=== PATIENT | male | born 1950 | race Caucasian/White ===

== ENCOUNTER → 2019-01-06 | Outpatient (CLI) | payer MEDICARE, OTHER, SELFPAY ==
[2019-01-06 12:19] LABS: Absolute Lymphocyte Count 1.67 X10^3/uL (0.83-4.51); Absolute Neutrophil Count 2.5 X10^3/uL (2.0-7.7); Basophil# 0.04 X10^3/uL; Basophil% 0.8 % (0-1); Eosinophils% 3.9 % (0-5); Hematocrit 42.5 % (40-54); Lymphocyte # 1.67 X10^3/ul (4.0); Lymphocyte % 32.7 % (19-41); Mean Corp Hgb Conc 32.9 g/dL (32-36); Mean Corpuscular Hgb 32.4 pg (27.0-32.0); Mean Corpuscular Volume 98.4 fL (80-94); Mean Platelet Vol. 10.2 fl (6.2-12.0); Monocyte# 0.63 X10^3/uL; Monocyte% 12.4 % (0-10); NRBC Flagged by Analyzer 0 % (0-5); Neutrophil # 2.53 X10^3/uL (2.7-7.7); Neutrophil % 49.6 % (47-70); Platelet Count 282 K/mm3 (150-450); RBC Distribution Width CV 11.8 % (11.6-14.6); RBC Distribution Width SD 43.1 fl (35.1-43.9); Red Blood Count 4.32 M/mm3 (4.6-6.2); White Blood Count 5.1 K/mm3 (4.4-11.0)
[2019-01-06 12:26] LABS: AST(SGOT) 19 U/L (15-37); Alanine Aminotransfer ALT/SGPT 35 U/L (16-61); Albumin, Serum 3.9 g/dL (3.2-5.0); Alkaline Phosphatase 88 U/L (45-117); Anion Gap 9 (5-15); BUN 20 mg/dL (7-18); BUN/Creat Ratio 21.5 RATIO (10-20); Calcium,Total 8.8 mg/dL (8.5-10.1); Chloride 104 mmol/L (98-107); Creatinine, Serum 0.93 mg/dL (0.70-1.30); EST Glomerular Filtration Rate 86 mL/min (>60); Est Glom Filt Rate - Afr Amer 104 mL/min (>60); Glucose 87 mg/dL (74-106); Protein, Total 7.9 g/dL (6.4-8.2); Sodium Level 138 mmol/L (136-145); T4 Free Direct 1.03 ng/dL (0.76-1.46); Thyroid Stim Hormone (TSH) 1.63 uIU/mL (0.358-3.74)
== END | disposition home or self-care (01) ==
LOC: BFHLAB 10:19
PROVIDERS: Family Provider Family Medicine; PCP Family Medicine; Visit Provider Family Medicine
DX: I10 Essential (primary) hypertension (principal); E78.5 Hyperlipidemia, unspecified; F10.20 Alcohol dependence, uncomplicated
CPT/HCPCS: 36415; 80053; 84439; 84443; 85025

== ENCOUNTER → 2019-01-21 12:21 | Outpatient (CLI) | payer MEDICARE, OTHER, SELFPAY ==
[2019-01-21 11:50] VITALS: BMI 25.9
--- NOTE | 2019-01-21 12:25 | CT_ITS ---
STUDY: LOW DOSE CT LUNG CANCER SCREENING REASON FOR EXAM: Male, 68 years old. Patient has a smoking history of 2 packs per day for 45 years. The patient quit 7 years ago. RADIATION DOSAGE (If Supplied By Facility): CTDIvol = ( 4.02 ) mGy, DLP = ( 155.02 ) mGycm TECHNIQUE: No contrast was administered. Low dose technique was utilized (average mAS-38 and kVp 120). 1.25 mm axial source images with a slice interval of 1.25-mm were reconstructed in lung windows. 2.5 mm axial source images with a slice interval of 2.5-mm were reconstructed in lung windows. 5.0 mm axial source images with a slice interval of 5.0-mm were reconstructed in soft tissue windows. Nodule measured using lung windows on PACS and/or independent workstation with automated measurement of minimum and maximum diameter. Nodule measurement reported as average diameter rounded to the nearest whole number. Growth is defined as an increase ins size of greater than 1.5 mm. COMPARISON: None. NODULES: There is a 1.5 cm x 2.7 cm x 2.2 cm area of irregular stranding in the medial left lung apex. This most likely represents a focal area of scarring. There is a 1.2 cm x 0.7 cm pleural-based nodular density in the superior aspect of the right lower lobe posteriorly as seen on axial image number 1:15. Total lung nodules (excluding granulomas): Emphysema: Mild emphysematous changes. Aorta: Mild calcified atherosclerotic plaques of the aortic arch and descending thoracic aorta. Coronary arteries: Coronary artery calcification. Mediastinal nodes: Small mediastinal lymph nodes. Other chest and abdominal findings: Degenerative changes of the thoracic spine. CT/Low Dose CT Lung Screening IMPRESSION: Lung-RADS category 3 - Continue screening with LDCT in 6 months. IMPORTANT NOTES FOR USE: ACR Lung-RADS Version 1.0 Assessment Categories Release Date: June 30, 2013 Category: Coded 0-4 bases on nodule(s) with highest degree of suspicion. Negative screen is defined as categories 1 and 2; a positive screen is defined as categories 3 and 4. Category 3 and 4A nodules that are unchanged on interval CT should be coded as category 2, and individuals returned to screening in 12 months. Category 4X: Category 3 or 4 nodules with additional imaging findings that increase the suspicion of lung cancer, such as spiculation, GGN that doubles in size in 1 year, enlarged lymph notes, etc. Category Modifiers: S (significant finding unrelated to lung cancer) and C (prior history of treated lung cancer) may be added to the 0-4 Lung-RADS Electronically Signed: Issac Sinha, at 12:57 EST , Service support ,
== END ==
PROVIDERS: Family Provider Family Medicine; PCP Family Medicine; Referring Provider Nurse Practitioner Family; Visit Provider Nurse Practitioner Family
DX: Z87.891 Personal history of nicotine dependence (principal); Z12.2 Encounter for screening for malignant neoplasm of respiratory organs
CPT/HCPCS: G0297

== ENCOUNTER → 2019-02-05 06:48 | Outpatient (CLI) | payer MEDICARE, OTHER, SELFPAY ==
[2019-01-24 06:13] VITALS: BMI 25.4
--- NOTE | 2019-02-05 15:24 | PFTCOMP ---
COMPLETE PULMONARY FUNCTION TEST INTERPRETATION Brief HPI: Patient is a 68 year old male, currently under the care of myself, who presents to [facility] for complete pulmonary function tests secondary to diagnosis of bronchitis. Respiratory therapist reports good effort and reproducible results. Interpretation: Forced expiration spirometry shows no large airways obstructive ventilatory defect with an FEV1 of 91% predicted. There is no significant bronchodilator response by strict ATS criteria. Spirograms are of good quality and plateau slowly, indicating slowly emptying areas of the lungs. The respiratory flow volume loop shows decreased expiratory flow rates at high lung volumes consistent with small airways obstruction. Lung volumes by body plethysmography show a normal total lung capacity at 7.28 L, 99% predicted. All other lung volumes are within normal limits. Diffusion capacity by carbon monoxide is normal at 105% predicted. The airway resistance is slightly elevated. No previous pulmonary function tests were available for review. Impression: These pulmonary function tests are grossly within normal limits. There is some stigmata of possible small airways disease.
== END ==
PROVIDERS: Family Provider Family Medicine; PCP Family Medicine; Referring Provider Internal Medicine Critical Care Medicine; Visit Provider Internal Medicine Critical Care Medicine
DX: R91.1 Solitary pulmonary nodule (principal); J47.9 Bronchiectasis, uncomplicated
CPT/HCPCS: 94060; 94726; 94729

== ENCOUNTER → 2019-02-06 08:09 | Outpatient (CLI) | payer MEDICARE, OTHER, SELFPAY ==
[2019-01-24 06:13] VITALS: BMI 25.4
[2019-02-06] VITALS (10 sets, daily range): BP systolic 137–172; BP diastolic 62–80; PULSE 55–60; RESP 14–20; TEMP 37; O2SAT 94–100; BMI 26.4
--- NOTE | 2019-02-06 | CT_ITS ---
PROCEDURE: CT GUIDED CORE NEEDLE BIOPSY OF A small posterior right lower lobe nodule LUNG LESION INDICATION: Male, 68 years old. Right lower lobe nodule. PHYSICIAN: Dr. Bharath Huber CONSENT: Written informed consent was obtained having explained the risks, benefits and alternatives in detail with the patient who accepted the risks and agreed to proceed. Laboratory review and clinical assessment was performed. CONSCIOUS SEDATION PROTOCOL: The Drugs used were: 2 mg Versed, IV., and 50 mcg Fentanyl, IV. The sedation time was: 9 minutes. Conscious sedation was started at 10:01 AM and terminated at 10:10 AM The conscious sedation protocol was independently monitored. RADIATION DOSAGE (If Supplied By Facility): CTDIvol = ( 21.76 ) mGy, DLP = ( 851.72 ) mGycm Individualized dose optimization techniques were used for this CT. TECHNIQUE: The patient was placed in the prone position. A noncontrast CT was performed to localize the lesion in the plaster aspect of the right lower lobe deep to a rib . The skin surface was prepped and draped in a sterile fashion. 1% lidocaine was used for local anesthesia. Using CT guidance, a 20-gauge coaxial biopsy device was advanced. Due to the position of the small nodular density deep to the rib, access was not obtainable at this time. A post procedure CT demonstrated no adverse sequelae or pneumothorax. The patient tolerated the procedure well without adverse event. A negative biopsy does not exclude malignancy. Further imaging or clinical followup based on patient condition and degree of clinical suspicion for malignancy. Suggest rebiopsy, if biopsy results do not match with clinical scenario. CT/Biopsy/Inj or Needle Placement IMPRESSION: 1. Attempted CT directed core needle biopsy of the right lower lobe lesion using CT image guidance with image documentation as described. Follow-up with PET scan is recommended. 2. Conscious Sedation protocol utilized with independent monitoring. Electronically Signed: Issac Sinha, at 13:23 EST , Service support ,
--- NOTE | 2019-02-06 08:19 | RAD_ITS ---
STUDY: X-RAY CHEST REASON FOR EXAM: Male, 68 years old. 2 hour postright lung biopsy radiograph. TECHNIQUE: AP inspiration and expiration views. COMPARISON: Comparison is made with prior study done earlier today. FINDINGS: This is a 2 hour post right lung biopsy radiograph. There is no evidence of pneumothorax. RAD/Chest Insp/Exp 2 View IMPRESSION: No evidence of pneumothorax on the 2 hour post right lung biopsy radiograph. Electronically Signed: Issac Sinha, at 14:57 EST , Service support ,
--- NOTE | 2019-02-06 08:19 | RAD_ITS ---
STUDY: X-RAY CHEST REASON FOR EXAM: Male, 68 years old. Immediate post right lung biopsy radiograph. TECHNIQUE: AP inspiration and expiration views COMPARISON: None. FINDINGS: EKG electrodes are seen. There is no evidence of pneumothorax. RAD/Chest Insp/Exp 2 View IMPRESSION: No evidence of pneumothorax on the immediate post right lung biopsy radiographs. Electronically Signed: Issac Sinha, at 11:40 EST , Service support ,
[2019-02-06 08:37] LABS: Absolute Lymphocyte Count 1.36 X10^3/uL (0.83-4.51); Absolute Neutrophil Count 3.3 X10^3/uL (2.0-7.7); Basophil# 0.03 X10^3/uL; Basophil% 0.6 % (0-1); Eosinophils% 3.7 % (0-5); Hematocrit 41.6 % (40-54); Hemoglobin 13.9 g/dL (13.0-16.5); Lymphocyte # 1.36 X10^3/ul (4.0); Lymphocyte % 25.4 % (19-41); Mean Corp Hgb Conc 33.4 g/dL (32-36); Mean Corpuscular Hgb 32.5 pg (27.0-32.0); Mean Corpuscular Volume 97.2 fL (80-94); Mean Platelet Vol. 9.6 fl (6.2-12.0); Monocyte# 0.46 X10^3/uL; Monocyte% 8.6 % (0-10); NRBC Flagged by Analyzer 0 % (0-5); Neutrophil # 3.28 X10^3/uL (2.7-7.7); Neutrophil % 61.3 % (47-70); Platelet Count 268 K/mm3 (150-450); RBC Distribution Width CV 11.9 % (11.6-14.6); RBC Distribution Width SD 42.5 fl (35.1-43.9); Red Blood Count 4.28 M/mm3 (4.6-6.2); White Blood Count 5.4 K/mm3 (4.4-11.0)
[2019-02-06 08:42] LABS: Prothrombin Time (Protime)PT. 13.4 SECONDS (11.7-14.9)
[2019-02-06 08:43] LABS: Partial Thromboplast Time 27.1 Seconds (24.1-36.2)
[2019-02-06] MEDS: fentaNYL 100 MCG/2 ML Ampul IV (10:01)
[2019-02-06] MEDS: Midazolam 2 MG/2 ML Syringe IV (10:01)
== END ==
PROVIDERS: Family Provider Family Medicine; PCP Family Medicine; Referring Provider Internal Medicine Critical Care Medicine; Visit Provider Internal Medicine Critical Care Medicine
DX: R91.1 Solitary pulmonary nodule (principal); J47.9 Bronchiectasis, uncomplicated
CPT/HCPCS: 32405; 36415; 71046; 77012; 85025; 85610; 85730; 99156; J7040; A4216

== ENCOUNTER → 2019-02-18 07:55 | Outpatient (CLI) | payer MEDICARE, OTHER, SELFPAY ==
[2019-02-06 08:41] VITALS: BMI 26.4
[2019-02-18 12:31] LABS: Cholesterol 164 mg/dL (200); Glucose 87 mg/dL (74-106); High Density Lipoprotein 46 mg/dL; Triglycerides 94 mg/dL; Very Low Density Lipoprotein 19 mg/dL (5-40)
== END ==
PROVIDERS: Family Provider Family Medicine; PCP Family Medicine; Visit Provider Family Medicine
DX: E78.5 Hyperlipidemia, unspecified (principal)
CPT/HCPCS: 36415; 80061; 82947

== ENCOUNTER → 2019-04-28 07:58 | Outpatient (CLI) | payer MEDICARE, OTHER, SELFPAY ==
[2019-02-06 08:41] VITALS: BMI 26.4
--- NOTE | 2019-04-28 07:58 | CT_ITS ---
ACR Level 3 findings have been noted. An addendum which confirms receipt of the report will follow. STUDY: CT CHEST WITHOUT CONTRAST REASON FOR EXAM: Male, 69 years old. LUNG NODULE F/U, PREV SMOKER, SMOKED FOR 42 YRS X 2PPD RADIATION DOSAGE (If Supplied By Facility): CTDIvol = ( 13.56 ) mGy, DLP = ( 508.42 ) mGycm TECHNIQUE: Transaxial imaging was performed without the administration of intravenous contrast material. Coronal and sagittal reconstruction images were also reviewed. Individualized dose optimization techniques were used for this CT. COMPARISON: Previous CT scan of the chest obtained on October 21, 2018 FINDINGS: The pulmonary parenchyma was carefully evaluated and shows multiple nodular densities not previously identified. One small nodule in the right lung apex on axial cardiac 24 measuring 3 mm in size. This is smooth nodular density which was previously identified and is unchanged. In the left lung apex on axial comment 26 is a strand-like area of increased density which is increased in size. This could represent an area of atelectatic fibrosis, however, an underlying tumor cannot be completely excluded. A pleural-based nodular density which is somewhat irregular is noted in the superior segment of the right lower lobe on axial cuts 62 measuring 1.8 x 0.9 cm in maximal transverse and AP dimension. Previously it is not hyperdense and measured about 0.95 x 0.7 cm in size so it has approximately doubled in size since the previous CT scan from 01/21/2019. A new pulmonary nodular density measuring about 3 mm in size is seen within the lateral right lower lobe on axial cuts 70 which previously was not seen. A suspicious new nodular density is noted on axial image 77 which measures 6 x 6 mm in size in the right middle lobe. On the same cut, a 3 x 3 mm nodular density is seen of the lateral aspect of the right lower lobe. 2 additional new pleural-based nodular densities measuring about 2 to 3 mm in size appears are seen in the lateral aspect of the right lower lobe on images 82 and 84. Finally, a suspicious nodular density measuring 8 mm in size which is pleural-based is no relating the right lower lobe, which previously was not seen. All these nodular densities are noncalcified and may have significantly increased in size and number and are therefore suspicious for metastasis. New granulomatous disease is less likely diagnostic possibility. Calcifications are noted in the coronary arteries due to coronary calcific arteriosclerosis. The heart is otherwise normal. Normal mediastinum. Normal hilar regions. Normal unenhanced pulmonary arteries. Normal aorta arch and descending thoracic aorta. Normal osseous structures. There is no demonstrated abnormality of the visualized upper abdomen. CT/Chest without Contrast IMPRESSION: Multiple pulmonary nodular densities are noted predominantly in the right lung which have increased in size and number. Metastasis are the prime diagnostic consideration, however, granulomatous disease is a less likely diagnostic possibility. Electronically Signed: Jono Aragon, at 9:51 EST Tel , Service support ,
== END ==
PROVIDERS: PCP Family Medicine; Referring Provider Internal Medicine Critical Care Medicine; Visit Provider Internal Medicine Critical Care Medicine
DX: R91.1 Solitary pulmonary nodule (principal)
CPT/HCPCS: 71250

== ENCOUNTER → 2019-05-19 07:47 | Outpatient (CLI) | payer MEDICARE, OTHER, SELFPAY ==
[2019-05-13 06:07] VITALS: BMI 25.7
--- NOTE | 2019-05-19 07:50 | PET_ITS ---
EXAMINATION: FDG PET-CT INDICATIONS: A 69-year-old male with history of pulmonary nodularity. COMPARISON EXAMINATION: CT of the chest report dated 04/28/2019 INDEX LESION SIZE SUV INTERPRETATION Mid to distal esophagus, nodular 20.5-mm (frame 230) 9.2 Fulfills quantitative criteria for viable neoplasm, direct visualization recommended Mediastinum, bilateral thoracic perihilum 32.4 x 51.3-mm (largest) (frame 229) 11.9 (max) Fulfills quantitative criteria or viable neoplasm Right supraclavicular region (nR3) 19.4-mm (largest) (frame 266) 5.5 (max) Fulfills quantitative criteria for viable neoplasm Right lower posterior lung-right lower lobe 17.8-mm (frame 224) 3.0 Fulfills quantitative criteria for viable neoplasm Axial skeletal structures, left proximal femur 7.9 (max) Fulfills quantitative criteria for viable osseous neoplasm TECHNIQUE: Following the intravenous administration of 16.62 mCi of F-18 deoxyglucose via the left antecubital fossa, multiplanar image acquisitions of the neck, chest, abdomen and pelvis to level of mid thigh, obtained at one hour post radiopharmaceutical administration contemporaneously interpreted with the current CT of the neck, chest, abdomen and pelvis, to level of mid thigh, dated 05/19/[address] of the chest report dated 04/28/2019 reveals: BLOOD GLUCOSE LEVEL:?? 95 mg/dl?HEIGHT:?73 inches?WEIGHT: 195 lbs. FINDINGS: 1. There is an increase in glucose metabolism defined in the carinal level posterior mediastinum which appears contiguous to the juncture of the mid-distal esophagus rendering a calculated maximal standard uptake value of 9.7. The maximal axial diameter of the corresponding metabolic abnormality on review of CT of the chest dated 05/19/2019 is 20.5-mm (transverse). 2. increased FDG distribution is noted in the pre-carinal level middle mediastinum and right, and to a lesser extent left, thoracic perihilum. The calculated maximal standard uptake value is 11.9. The maximal axial diameter of the largest individual metabolic, morphologic abnormality on review of CT of the chest dated 05/19/2019 is 32.4-mm (transverse) x 51.3-mm (AP). 3. Enhanced tracer concentration is observed in the right supraclavicular region-right anterior neck in approximately nodular presentations rendering a calculated maximal standard uptake value of 5.5. The maximal axial diameter of the corresponding largest individual soft tissue density on review of CT of the chest dated 05/19/2019 is 19.4-mm (AP). 4. Facilitated FDG uptake is noted in the right mid-lower posterior hemithorax-right lower lobe rendering a calculated maximal standard uptake value of 3.0. The maximal axial diameter of the corresponding pleural-based density on review of CT of the chest dated 05/19/2019 is 17.8-mm (transverse). 5. Innumerable foci of increased fluorine labeled glucose uptake are noted in the axial skeletal structures, too many to individually articulate, to include midline sacrum, left anterior and posterior iliac wing, left posterior ilium, several bilateral ribs, several thoracic and lumbar vertebrae, bilateral scapula, distal sternum, left proximal femur. The calculated maximal standard uptake value is 7.9. 6. Normal physiologic distribution of the radiopharmaceutical is apparent in the hepatic (2.5) and splenic parenchyma, both renal units, bladder and visualized intestinal tract. The visualized portion of the cerebral cortex demonstrate symmetric and preserved glucose metabolism. Diffuse radiopharmaceutical concentration is noted in all four quadrants of the abdomen and pelvis. Pertinent CT findings are as follows: CHEST: There is atherosclerotic calcification defined in the thoracic aorta without evidence of dilatation-aneurysm formation. Coronary arterial calcification is observed. Bilateral axillary soft tissue densities with fatty hilus are non-glucose avid. Parenchymal densities noted in the bilateral hemithorax pulmonary parenchyma demonstrate no evidence of quantitatively significant increased FDG concentration. ABDOMEN AND PELVIS: There is atherosclerotic calcification defined in the abdominal aorta without evidence of dilatation-aneurysm formation. Abdominal-pelvic arterial calcification is visualized. Bilateral inguinal soft tissue densities with fatty hilus are ametabolic. Calcifications are noted in the left lower hemipelvis. Exophytic and cortical cyst formation is demonstrated in the right kidney. A small fat containing right inguinal hernia is noted. Subcentimeter bilateral inguinal soft tissue densities are ametabolic. SKELETAL: Degenerative changes are noted in the cervical, thoracic and lumbar spine. PET/PET/CT Tumor Base -Thigh Init IMPRESSION: 1. Increased glucose metabolism manifest at the juncture of the mid-distal esophagus may be further investigated with direct visualization secondary to the quantitative degree of uptake. 2. Mediastinal and bilateral thoracic perihilar enhanced FDG uptake fulfills quantitative criteria for viable neoplasm with single point technique. 3. The right supraclavicular hypermetabolic abnormalities fulfill quantitative criteria for viable residual metastasis. 4. The right lower lung-right lower lobe increase in tracer concentration fulfills quantitative criteria for metastatic disease. 5. Axial skeletal and left proximal femur hypermetabolic foci fulfill quantitative criteria for viable osseous metastatic involvement.. Electronic Signature Kevin Curran D.O. Electronically Signed: Kevin Curran DO at 23:26 EDT Tel , Service support ,
== END ==
PROVIDERS: PCP Family Medicine; Referring Provider Internal Medicine Critical Care Medicine; Visit Provider Internal Medicine Critical Care Medicine
DX: R91.1 Solitary pulmonary nodule (principal)
CPT/HCPCS: 78815; A9552

== ENCOUNTER 2019-05-26 06:48 | Day surgery (SDC) | payer MEDICARE, OTHER, SELFPAY ==
--- NOTE | 2019-05-23 01:56 | HP_ITS ---
Intake Vital Signs 05/23/19 Height 6 ft 1 in 05/23/19 Weight: 190 lb 05/23/19 BMI 25.0 05/23/19 BP 172/87 H 05/23/19 Blood Pressure Location Rt brachial 05/23/19 Position Sitting 05/23/19 Respiration 20 H 05/23/19 Pulse 78 05/23/19 Pulse Oximetry (%) 97 Intake Visit Reasons: Esophagogastroduodenoscopy Chief Complaint: esophageal mass Salvage Mechanic Required: No Is patient in pain?: No Allergies No Known Allergies Allergy (Verified 05/23/19 11:43) Medications multivitamin 1 tab PO DAILY 01/20/19 [History Confirmed 05/23/19] atorvastatin 10 mg tablet 10 mg PO QHS 01/21/19 [History Confirmed 05/23/19] PFSH Medical History Former smoker (Acute) Hyperlipidemia (Chronic) JOSE DAVID (obstructive sleep apnea) (Acute) Macrocytosis (Chronic) Inguinal hernia (Chronic) Chronic obstructive lung disease (Chronic) Hypertensive disorder (Chronic) Alcoholism (Chronic) Surgical History (Updated 05/23/19 @ 11:44 by Danna Terry) History of carpal tunnel surgery (Resolved) History of inguinal hernia repair (Resolved) History of appendectomy (Resolved) History of colonoscopy (Acute ~2013) Family History Father Hypertension Cancer unsure if prostate or colon CVA (cerebral vascular accident) Mother Heart disease pacemaker Social History (Updated 05/23/19 @ 13:[address] Gm Harris MD) Smoking Status: Former smoker quit date: 04/12/12 pack-years: 94 Tobacco: How many years used: 47 Electronic Cigarette Use: not used how long ago did patient quit smokin years second hand exposure: No quit status: quit date established HPI HPI HPI: MILI LEYVA, is a 69 M who presents to the office today for HPI HPI Surgical H&P: Yes HPI: MILI LEYVA, is a 69 M who presents to the office today for Esophageal mass on imaging. The patient was noted to have a lung mass and underwent a PET scan. The patient has a mass in the mid esophagus on PET scan which is lighting up on the CT. He is not having any dysphasia at this time. ROS General General: Yes fatigue; no weight change, appetite, colon cancer, breast cancer or weakness HEENT HEENT: No difficulty swallowing, eye injury, eye surgery, swollen glands or hoarseness Endo Endocrine: No thyroid disease, diabetes mellitus, thyroid cancer, Hair loss, heat intolerance or cold intolerance Musc Musculoskeletal: Yes back problems; no arthritis, rheumatoid arthritis, gout or joint pain Cardio Cardiovascular: No murmur, pacemaker, heart disease, atrial fibrillation, high blood pressure, heart attack, heart stent, palpitations, shortness of breat with exertion or chest pain Psych Psychiatric: Yes depression; no anxiety or hearing voices Resp Respiratory: No shortness of breath, Yes sleep apnea, No cough, No COPD, No asthma, Yes emphysema, No wheezing Gastro Gastrointestinal: No abdominal pain, No nausea or vomiting, No diarrhea, No constipation, No blood in stool, No acid reflux, No hemorrhoids, No ulcers, No gallbladder problem, No black,tarry stools Matthew Hematologic: No blood thinners, No blood disorders, No bleeding, No anemia, No blood clots Neuro Neurologic: No weakness Exam Const General: cooperative Orientation: alert, oriented x3 Resp Effort & Inspection: normal respiratory effort Auscultation: clear to auscultation bilaterally Cardio Rate: regular rate Rhythm: regular rhythm Heart Sounds: no murmurs GI Inspection: non-distended Palpation: soft, nontender Assessment & Plan Problems 1. Esophageal lesion K22.9 Plan The patient had a PET scan for lung lesion. It was noted that he has a lesion in the mid esophagus. I discussed this with him in detail. I was consulted for an EGD for biopsy for pathology. The patient does have a mass in the mid mediastinum but I am unsure if this is in the esophagus. I will perform EGD for biopsy. If there is no erosion of the mass into the esophagus I would recommend a mediastinotomy by a thoracic surgeon for biopsy of lymph node under the right clavicle. I explained endoscopy in detail to the patient. I explained the risks including but not limited to stroke or heart attack with anesthesia, perforation of the GI tract, bleeding, infection. I explained that any of these could necessitate further emergency surgery. The patient understands and all questions were answered sufficiently. The patient wishes to proceed with procedure. Gm Harris MD Pager: [facility] [address] [place] [address], [address] [place] [address] Office: Orders Orders: EGD Today K22.9 Coding Level of Care Code Off vis,new,level 3 Diagnoses Esophageal lesion K22.9 05/23/19 8542 <Electronically signed by Gm ugalde MD> Date _ Gm Harris MD I have re-examined the patient. There are no clinical changes since date of exam.
[2019-05-23 11:44] VITALS: BMI 25.7
--- NOTE | 2019-05-26 | IMM_PTH ---
PATIENT: MILI LEYVA LOC: EN U#:[id number] AGE/SX: 69/M ROOM: RE05/26/[address]: Dr. Gm Harris MD : 1950 BED: DIS: 05/26/2019 SPEC #: [id number] RECD: 05/27/19 12:14 STATUS: JAZMINE REClare #: [id number] TASHA: 05/26/19 00:[address]: Gm Harris DEPT: IMMUNOHISTOCHEMISTRY RECD BY: Michelle Garcia ENTERED: 05/27/19 12:14 SP TYPE: IMMUNO OTHR DR: Dr. Johnathon Francois MD Tissues: Gastric mucous membrane Procedures: P53 (initial) KI-67 (add) PHYSICIAN & [place] [id number] SPECIMEN INFORMATION: Tissue Source: GE junction biopsy Clinical Info: Esophageal lesion Specimen Number: [id number] CPT code: 07086, 71844 METHODOLOGY: Deparaffinized sections of prefer/formalin-fixed tissue or PAP/DQ stained slides are incubated with monoclonal/polyclonal antibodies/oligonucleotide probes. Localization is made via biotin free immunoperoxidase method. Appropriate controls are performed and reacted as expected. Results on target cell population are indicated in the following table: RESULTS: ANTIBODY / CLONE RESULT P53 (DO-7) positive, focal, strong intensity Ki-67 (30-9) positive, focal, strong intensity These tests were developed and their performance characteristics determined by [facility]. They may not have been cleared or approved by the U.S. Food and Drug Administration. The FDA has determined that such clearance or approval is not necessary. The above immunohistochemical/dualISH markers are ordered and reviewed by the Pathologist. INTERPRETATION: Gastroesophageal junction, biopsy: Consistent with low-grade dysplasia. AM:luis 05/28/19
[2019-05-26 07:03] VITALS: BP 129/62; PULSE 77; RESP 15; TEMP 36.3; O2SAT 100; BMI 25.1
[2019-05-26] MEDS: Lactated Ringers 1,000 ML 100 ML IV (07:11)
--- NOTE | 2019-05-26 08:00 | EGD_PTH ---
PATIENT: MILI LEYVA LOC: EN U#:[id number] AGE/SX: 69/M ROOM: RE05/26/[address]: Dr. Gm Harris MD : 1950 BED: DIS: 05/26/2019 SPEC #: [id number] RECD: 05/26/19 09:53 STATUS: JAZMINE DALTON #: [id number] TASHA: 05/26/19 08:[address]: Gm Harris DEPT: SURGICAL PATHOLOGY RECD BY: Shady Rowe ENTERED: 05/26/19 12:00 SP TYPE: EGD BIOPSY OT DR: Dr. 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 Chronic inflammation. See comment. AM:luis 05/27/19 COMMENT Alcian blue/PAS stain with matched control supports the above diagnosis. Immunohistochemistry ([id number]) supports the above diagnosis and reveals strong, focal p53 staining. MICROSCOPIC DESCRIPTION Slides are reviewed. GROSS DESCRIPTION Received in fixative is one container labeled with the patient's name and designated GE junction biopsy. The specimen consists of one irregular fragment of light ruiz soft tissue that measures 0.3 x 0.2 x 0.1 cm. The specimen is totally submitted in one cassette. / SJ:luis 05/26/19 TC:3 CPT: 54746, 53970
--- NOTE | 2019-05-26 08:09 | OP.CCLET_ITS ---
05/26/2019 Johnathon Francois Re : Upper GI endoscopy procedure for Shabbir Dickinson Dear Alessandro This procedure was performed on Sunday, May 26, 2019. My impressions and recommendations are as follows: Impressions : - Esophageal mucosal changes suspicious for Tariq's esophagus. Biopsied. - Normal stomach. - Normal examined duodenum. - Recommendations : - Discharge patient to home. - Resume previous diet. - Continue present medications. - Await pathology results. My findings are described in the full procedure note, which is enclosed. If I can be of further assistance, please feel free to contact me at Doctor phone number(s): , Work: . Sincerely, Gm Harris MD 05/26/2019 8:09:10 AM This report has been signed electronically.
--- NOTE | 2019-05-26 08:09 | OP.EGD_ITS ---
Patient Name: Shabbir Dickinson Procedure Date: 05/26/2019 7:23 AM Date of : 1950 Age: 69 Procedure: Upper GI endoscopy Indications: Abnormal PET scan of the GI tract Providers: Gm Harris MD Medicines: Monitored Anesthesia Care Patient Profile: This is a 69 year old male. Refer to note in patient chart for documentation of history and physical. Complications: No immediate complications. Estimated blood loss: Minimal. Procedure: Pre-Anesthesia Assessment: - Prior to the procedure, a History and Physical was performed, and patient medications and allergies were reviewed. The patient's tolerance of previous anesthesia was also reviewed. The risks and benefits of the procedure and the sedation options and risks were discussed with the patient. All questions were answered, and informed consent was obtained. Prior Anticoagulants: The patient has taken no previous anticoagulant or antiplatelet agents. After reviewing the risks and benefits, the patient was deemed in satisfactory condition to undergo the procedure. After obtaining informed consent, the endoscope was passed under direct vision. Throughout the procedure, the patient's blood pressure, pulse, and oxygen saturations were monitored continuously. The gastroscope was introduced through the mouth, and advanced to the second part of duodenum. The upper GI endoscopy was accomplished without difficulty. The patient tolerated the procedure well. Scope In: 8:02:21 AM Scope Out: 8:05:36 AM Total Procedure Duration Time 0 hours 3 minutes 15 seconds Findings: There were esophageal mucosal changes suspicious for Tariq's esophagus present at the gastroesophageal junction. Mucosa was biopsied with a cold forceps for histology in a targeted manner at the gastroesophageal junction. One specimen bottle was sent to pathology. The stomach was normal. The examined duodenum was normal. Impression: - Esophageal mucosal changes suspicious for Tariq's esophagus. Biopsied. - Normal stomach. - Normal examined duodenum. - Recommendation: - Discharge patient to home. - Resume previous diet. - Continue present medications. - Await pathology results. Procedure Code(s): --- Professional --- 94786, Esophagogastroduodenoscopy, flexible, transoral; with biopsy, single or multiple Diagnosis Code(s): --- Professional --- K22.8, Other specified diseases of esophagus R93.3, Abnormal findings on diagnostic imaging of other parts of digestive tract CPT copyright 2017 [employer]. All rights reserved. The codes documented in this report are preliminary and upon sprinkler fitter apprentice review may be revised to meet current compliance requirements. Gm Harris MD 05/26/2019 8:09:10 AM This report has been signed electronically. Number of Addenda: 0 Note Initiated On: 05/26/2019 7:23 AM
[2019-05-26 08:12] VITALS: BP 103/57; BP 129/62; PULSE 81; RESP 16; TEMP 36.8; O2SAT 96
[2019-05-26 08:15] VITALS: BP 129/62; BP 93/45; PULSE 78; RESP 16; O2SAT 93
[2019-05-26 08:20] VITALS: BP 104/58; BP 129/62; PULSE 75; RESP 17; O2SAT 94
[2019-05-26 08:27] VITALS: BP 111/56; BP 129/62; PULSE 62; RESP 16; TEMP 36.6; O2SAT 94
[2019-05-26 08:56] VITALS: BP 129/62
== END 2019-05-26 09:03 | disposition home or self-care (01) ==
LOC: EN 06:49 → AC 06:50
PROVIDERS: PCP Family Medicine; Referring Provider Family Medicine; Visit Provider Surgery
PROC: 0DJ08ZZ Inspection of Upper Intestinal Tract, Via Natural or Artificial Opening Endoscopic (ICD-10-PCS; CPT 43235; principal; 2019-05-26 07:55)
DX: K22.8 Other specified diseases of esophagus (principal); R93.3 Abnormal findings on diagnostic imaging of other parts of digestive tract; R94.8 Abnormal results of function studies of other organs and systems; Z87.891 Personal history of nicotine dependence; E78.5 Hyperlipidemia, unspecified; G47.33 Obstructive sleep apnea (adult) (pediatric); J44.9 Chronic obstructive pulmonary disease, unspecified; I10 Essential (primary) hypertension; F10.20 Alcohol dependence, uncomplicated; Z79.899 Other long term (current) drug therapy; R91.8 Other nonspecific abnormal finding of lung field
CPT/HCPCS: 43239; 88305; 88312; 88341; 88342; J7120; J2405

== ENCOUNTER 2019-07-17 09:29 | Emergency (ER) | payer MEDICARE, OTHER, SELFPAY ==
[2019-07-17 09:30] VITALS: BP 133/56; PULSE 92; RESP 18; TEMP 36.2; O2SAT 96; BMI 23.1
--- NOTE | 2019-07-17 09:43 | EKG12_ITS ---
Test Reason : SOB Blood Pressure : / mmHG Vent. Rate : 080 BPM Atrial Rate : 080 BPM P-R Int : 128 ms QRS Dur : 096 ms QT Int : 374 ms P-R-T Axes : 002 -13 080 degrees QTc Int : 431 ms Normal sinus rhythm Nonspecific ST abnormality Abnormal ECG Confirmed by IVAN CLAYTON ([id number]), editor & co founder CELE DANIELS ([id number] on 07/21/2019 1:21:15 PM Referred By: STEPHEN Confirmed By:IVAN CLAYTON
--- NOTE | 2019-07-17 09:43 | CT_ITS ---
STUDY: CTA CHEST REASON FOR EXAM: Male, 69 years old. SOB, LUNG CANCER-FIRST CHEMO THIS WEEK, CP, BACK PAIN RADIATION DOSAGE (If Supplied By Facility): CTDIvol = ( 11.89 ) mGy, DLP = ( 301.51 ) mGycm TECHNIQUE: The examination was performed with the intravenous administration of IV 100mL Isovue-370. Post-processing of the angiographic images was performed, with multiplanar reformation and 3D reconstruction. Individualized dose optimization techniques were used for this CT. COMPARISON: Comparison is made with prior study dated April 28, 2019. FINDINGS: Multiple intraluminal filling defects seen in branches of the right lower pulmonary artery in keeping with multiple pulmonary emboli. There is atherosclerotic calcification of the aortic arch with tortuosity. There is no demonstrated aortic dissection. There are calcifications of the coronary arteries. There is evidence of a mediastinal lymphadenopathy. There is evidence of a 4.3 cm x 3.1 cm right hilar mass. This wraps around the right mainstem pulmonary artery and interlobar pulmonary artery. Prominence of the left hilar lymph nodes as well. Normal visualized trachea and bronchi. There is evidence of a patchy airspace disease in the right middle lobe most likely representing postobstructive pneumonitis. Once again, there is evidence of a pulmonary nodules more prominent in the right lung. These are essentially unchanged. There is evidence of increased markings in the left lower lobe suggestive of a atelectasis. Normal chest wall structures. There are degenerative changes of thoracic spine. Normal visualized upper abdomen. CT/CTA Chest W/WO Contrast IMPRESSION: Multiple filling defects in branches of the right pulmonary artery in the right lower lobe. Enlargement of the right hilar adenopathy as well as mediastinal lymphadenopathy and prominence of the left hilar lymph nodes. Multiple pulmonary metastasis in the right lung. Electronically Signed: Issac Sinha, at 11:33 EDT , Service support ,
[2019-07-17] MEDS: Aspirin 81 MG TAB.CHEW 324 MG PO (09:59)
[2019-07-17] MEDS: Morphine 4 MG/ML Syringe IV (09:59)
--- NOTE | 2019-07-17 09:59 | ED.VISSUMM ---
- ER Visit Summary Date of Service: 07/17/19 Chief Complaint: Chest pain, shortness of breath and back pain History of Present Illness: The patient is a 69 M who presents with the above symptoms. He just started chemotherapy this week for stage IV non-small cell lung cancer. He has pain in the middle part of his chest that started last night. It is worse with breathing. It does not radiate. It makes him feel short of breath. He denies any fevers. No cough. He states that he has been taking ibuprofen and oxycodone without any relief at home. He has no history of DVT or PE. Denies any exposure to coronavirus. He states that he has stopped smoking since his cancer diagnosis. Physical Examination: Vital signs reviewed. HEENT exam unremarkable. Heart is regular rate and rhythm without murmurs. Lungs have diffuse rhonchorous breath sounds. His chest is tender in the midsternal area. abdomen is soft and nontender. Extremities reveal no edema. His peripheral pulses are equal. Skin exam normal. Neurologic exam normal. Test Results: White blood cell count 2.6, hemoglobin 10.6. Hematocrit 32.8. Chloride 108 BUN 22. INR 1.3. Troponin and BNP normal. CAT scan of the chest shows multiple PEs in the right lower lobe branches. He also has a right lower lobe pneumonitis which is likely postobstructive Emergency Department Course and Treatment: Patient was given aspirin and morphine for pain. Upon reevaluation he feels much better. His pulse ox is 94% on room air. He is able to ambulate on his own without hypoxia or shortness of breath. I discussed with Dr. Cervantes his oncologist. He recommended the patient be placed on Eliquis. I will place him on antibiotics as well. Dr. Cervantes is going to contact him for an appointment tomorrow. Treatment Plan: [] Disposition: Discharge Impression: Pulmonary embolism, pneumonitis This note was generated with [employer] dictation software. It may contain incorrect words, spelling, and punctuation that were not noted in review of the chart prior to signing ED Disposition - Plan for ED Patient: Disposition: Home or Assisted Living Instructions: Pulmonary Embolism Prescriptions: Apixaban [Eliquis] 5 mg PO BID #74 tab Transmission Status: Pending to [facility] Azithromycin [Zithromax Z-Cortez] 250 mg PO UD #1 box Transmission Status: Pending to [facility] [facility] Referrals: Johnathon Francois MD [Primary Care Provider] -
[2019-07-17 10:03] VITALS: O2SAT 95
[2019-07-17 10:10] LABS: Absolute Lymphocyte Count 0.32 X10^3/uL (0.83-4.51); Basophil# 0.01 X10^3/uL; Basophil% 0.4 % (0-1); Eosinophil# 0.09 X10^3/uL; Eosinophils% 3.5 % (0-5); Hematocrit 32.8 % (40-54); Hemoglobin 10.6 g/dL (13.0-16.5); Lymphocyte # 0.32 X10^3/ul (4.0); Lymphocyte % 12.3 % (19-41); Mean Corp Hgb Conc 32.3 g/dL (32-36); Mean Corpuscular Volume 95.9 fL (80-94); Mean Platelet Vol. 8.9 fl (6.2-12.0); Monocyte# 0.17 X10^3/uL; Monocyte% 6.5 % (0-10); NRBC Flagged by Analyzer 0 % (0-5); Neutrophil # 1.99 X10^3/uL (2.7-7.7); Neutrophil % 76.5 % (47-70); POSITIVE DIFFERENTIAL YES; POSITIVE MORPHOLOGY YES; Platelet Count 150 K/mm3 (150-450); RBC Distribution Width CV 14.2 % (11.6-14.6); RBC Distribution Width SD 48.5 fl (35.1-43.9); Red Blood Count 3.42 M/mm3 (4.6-6.2); White Blood Count 2.6 K/mm3 (4.4-11.0)
[2019-07-17 10:11] LABS: Differential Indicated SCAN CRITERIA MET
[2019-07-17 10:21] LABS: International Normalized Ratio 1.3; Prothrombin Time (Protime)PT. 15.4 SECONDS (11.7-14.9)
[2019-07-17 10:28] LABS: Anion Gap 8 (5-15); BUN 22 mg/dL (7-18); BUN/Creat Ratio 30.1 RATIO (10-20); Calcium,Total 9.6 mg/dL (8.5-10.1); Chloride 108 mmol/L (98-107); Creatinine, Serum 0.73 mg/dL (0.70-1.30); EST Glomerular Filtration Rate 113 mL/min (>60); Est Glom Filt Rate - Afr Amer 137 mL/min (>60); Estimated Creatinine Clearance 78.28 ml/min; Glucose 89 mg/dL (74-106); Potassium 4.5 mmol/L (3.5-5.1); Sodium Level 139 mmol/L (136-145)
[2019-07-17 10:53] LABS: BNP,B-Type NATRIURETIC PEPTIDE 40.8 pg/mL (0-100)
[2019-07-17 12:48] VITALS: BP 133/71; PULSE 83; RESP 17; RESP 18; O2SAT 98
[2019-07-18 10:04] LABS: Pathologist Review Reviewed
== END 2019-07-17 12:54 | disposition home or self-care (01) ==
PROVIDERS: Emergency Provider Emergency Medicine; PCP Family Medicine
DX: I26.99 Other pulmonary embolism without acute cor pulmonale (principal); J18.9 Pneumonia, unspecified organism; E78.00 Pure hypercholesterolemia, unspecified; Z87.891 Personal history of nicotine dependence
CPT/HCPCS: 71275; 80048; 83880; 84484; 85025; 85610; 93005; 96374; 99284; Q9967; A4216

== ENCOUNTER 2019-07-21 12:10 | Emergency (ER) | payer MEDICARE, OTHER, SELFPAY ==
[2019-07-21 12:11] VITALS: BP 113/71; PULSE 106; RESP 20; TEMP 36.4; O2SAT 98; BMI 21.7
--- NOTE | 2019-07-21 12:41 | ED.VIS.GEN ---
History of Present Illness Chief Complaint: Nosebleed Informant: Patient, PCP Onset: Days - 3-4 Context: Gradual Onset Timing: Intermittent Quality: oozing Location: mainly left side, I think Current Severity: Mild Maximum Severity: Moderate Worsened by: unk; just started Eliquis for PE Relieved by: holding pressure Associated Symptoms: Spitting out some blood and coughing some out after nosebleed Narrative: Denying any shortness of breath. Sent by his oncologist because of intermittent nosebleeding since he started Eliquis for pulmonary emboli. He has stage IV non-small cell lung cancer, and he just started treatment for that. He was seen at his oncologist office because of the cancer and noted the bleeding, he was bleeding in the office so he was sent to the ER for further management including CBC and CMP to check platelets and liver enzymes. It does not sound like the patient has pulmonary hemoptysis, it sounds more associated with the nosebleeding with the way he is describing it at this time. He has no new thoracic symptoms. He is having lots of bone pain however. - Past Medical History (1) Non-small cell lung cancer Status: Chronic (2) JOSE DAVID (obstructive sleep apnea) Status: Chronic (3) Alcoholism Status: Chronic (4) Bronchiectasis Status: Chronic Comment: RLL (5) Hyperlipidemia Status: Chronic (6) Hypertensive disorder Status: Chronic Past Medical History - Allergies and Home Meds Allergies/Adverse Reactions: Allergies No Known Allergies Allergy (Verified 07/21/19 12:13) Primary Care Physician: Johnathon Francois MD [Primary Care Provider] - Surgical History: herniorrhaphy Smoking Status: Former smoker Review of Systems General: Denies: Chills, Fever, Sweats Eyes: Denies: Visual changes - bilaterally, Diplopia ENT: Reports: - - Nosebleeding. Denies: Rhinorrhea, Sore throat Cardiovascular: Denies: Chest pain, Palpitations Respiratory: Reports: Cough, Sputum - Occasional, chronic, Dyspnea on exertion Gastrointestinal: Denies: Abdominal pain, Nausea, Vomiting, Diarrhea, Melena, Hematochezia Genitourinary: Denies: Dysuria, Hematuria, Frequency Musculoskeletal: Reports: Back pain, Extremity Pain. Denies: Neck pain Skin: Denies: Rash, Wounds Neurological: Denies: Headache, Weakness, Numbness Physical Exam Vital Signs/Narrative: Vital Signs Temp Pulse Resp BP Pulse Ox 07/21/19 12:11 97.6 F L 106 H 20 H 113/71 98 Inital Vital Signs reviewed: Yes General: Well nourished, Well developed, No Acute Distress Head: Normocephalic, Atraumatic Eyes: Perrl, EOMI ENT: Moist mucous membranes, No rhinorrhea, - - No active nasal bleeding, clots present bilaterally, 2 or 3 punctate sources on the right septum, and 1 small apparent source on the left, all with fresh blood present without active bleeding. No posterior or pharyngeal blood/bleeding. Neck: Supple, Nontender, No lymphadenopathy Cardiovascular: Regular rate, Regular rhythm, No murmurs Respiratory: No distress, CTA bilaterally, Chest nontender, Diminished - Throughout, symmetrically Abdomen: Soft, Nontender, Nondistended, Normal bowel sounds Skin: Normal color, No rash, No Trauma, - - Healing abrasion just to the right of the nose on the face Neurological: Alert, Oriented x3, Cranial nerves II-XII grossly intact, Normal Strength, Normal Sensation Psychological: Normal affect, Normal Mood Diagnostic/Tx/Re-eval Laboratory Tests 07/21/19 07/21/19 Range/Units 12:50 12:50 WBC 0.9 L* (4.4-11.0) K/mm3 RBC 3.29 L (4.6-6.2) M/mm3 Hgb 9.9 L (13.0-16.5) g/dL Hct 30.7 L (40-54) % MCV 93.3 (80-94) fL MCH 30.1 (27.0-32.0) pg MCHC 32.2 (32-36) g/dL RDW Std Deviation 45.3 H (35.1-43.9) fl RDW Coeff of Nevin 13.4 (11.6-14.6) % Plt Count 58 L (150-450) K/mm3 MPV 9.0 (6.2-12.0) fl Immature Gran % (Auto) 9.900 H (0.0-0.9) % Neut % (Auto) 59.3 (47-70) % Lymph % (Auto) 18.7 L (19-41) % [place] % (Auto) 8.8 (0-10) % Eos % (Auto) 2.2 (0-5) % Baso % (Auto) 1.1 H (0-1) % Absolute Neuts (auto) 0.5 L (2.0-7.7) X10^3/uL Absolute Lymphs (auto) 0.17 L (0.83-4.51) X10^3/uL Nucleated RBC % 0 (0-5) % Differential Comment SCANNED Diff Path Review May foll Platelet Estimate MKD DEC (ADEQ) Hypochromasia 1+ Sodium 138 (136-145) mmol/L Potassium 3.8 (3.5-5.1) mmol/L Chloride 104 (98-107) mmol/L Carbon Dioxide 25.0 (21.0-32.0) mmol/L Anion Gap 9 (5-15) BUN 34 H (7-18) mg/dL Creatinine 1.09 (0.70-1.30) mg/dL Estim Creat Clear Calc 67.71 ml/min Est GFR (MDRD) Af Amer 86 (>60) mL/min Est GFR (MDRD) Non-Af 71 (>60) mL/min BUN/Creatinine Ratio 31.2 H (10-20) RATIO Glucose 116 H (74-106) mg/dL Calcium 10.3 H (8.5-10.1) mg/dL Total Bilirubin 1.90 H (0.20-1.00) mg/dL AST 70 H (15-37) U/L ALT 111 H (16-61) U/L Alkaline Phosphatase 514 H (45-117) U/L Total Protein 6.7 (6.4-8.2) g/dL Albumin 1.8 L (3.2-5.0) g/dL Globulin 4.9 H (2.2-4.2) g/dL Albumin/Globulin Ratio 0.4 L (0.9-2.4) RATIO - Medical Decision Making Discussed the lab results with Dr. Pacheco who was on-call for Dr. Cervantes. He is okay with him going home and following up as an outpatient. He agrees platelet transfusion not indicated. Patient has had no fevers, so we do not need to provide antibiotics or admission to the hospital given his neutropenia. Patient was given ENT for as needed outpatient follow-up, and he was given a bottle of Afrin for recurrent bleeding and instructed on its use. There were several areas bilaterally that were cauterized, and with his prolonged observation in the emergency department, bleeding was stable. Procedures Procedure(s): Epistaxis care/cauterization --there were multiple punctate areas in both septums that responded well to Afrin/lidocaine pledgets placed followed by silver nitrate chemical cauterization. Good hemostasis was obtained. ED Disposition - Plan for ED Patient: Disposition: Home or Assisted Living Diagnosis: Pancytopenia, Non-small cell lung cancer, Acute anterior epistaxis Instructions: ED Epistaxis Adult Referrals: Jose Roberto Cervantes DO [STAFF PHYSICIAN] - (Call for appointment) Johnathon Francois MD [Primary Care Provider] - Gal Santos MD [STAFF PHYSICIAN] - As Needed
[2019-07-21 13:46] LABS: ALB/GLOB Ratio 0.4 RATIO (0.9-2.4); AST(SGOT) 70 U/L (15-37); Alanine Aminotransfer ALT/SGPT 111 U/L (16-61); Albumin, Serum 1.8 g/dL (3.2-5.0); Alkaline Phosphatase 514 U/L (45-117); Anion Gap 9 (5-15); BUN 34 mg/dL (7-18); BUN/Creat Ratio 31.2 RATIO (10-20); Calcium,Total 10.3 mg/dL (8.5-10.1); Chloride 104 mmol/L (98-107); Creatinine, Serum 1.09 mg/dL (0.70-1.30); EST Glomerular Filtration Rate 71 mL/min (>60); Est Glom Filt Rate - Afr Amer 86 mL/min (>60); Estimated Creatinine Clearance 67.71 ml/min; Globulin 4.9 g/dL (2.2-4.2); Glucose 116 mg/dL (74-106); Potassium 3.8 mmol/L (3.5-5.1); Protein, Total 6.7 g/dL (6.4-8.2); Sodium Level 138 mmol/L (136-145)
[2019-07-21 13:52] LABS: Absolute Lymphocyte Count 0.17 X10^3/uL (0.83-4.51); Absolute Neutrophil Count 0.5 X10^3/uL (2.0-7.7); Basophil# 0.01 X10^3/uL; Basophil% 1.1 % (0-1); Eosinophil# 0.02 X10^3/uL; Eosinophils% 2.2 % (0-5); Hematocrit 30.7 % (40-54); Hemoglobin 9.9 g/dL (13.0-16.5); Lymphocyte # 0.17 X10^3/ul (4.0); Lymphocyte % 18.7 % (19-41); Mean Corp Hgb Conc 32.2 g/dL (32-36); Mean Corpuscular Hgb 30.1 pg (27.0-32.0); Mean Corpuscular Volume 93.3 fL (80-94); Monocyte# 0.08 X10^3/uL; Monocyte% 8.8 % (0-10); NRBC Flagged by Analyzer 0 % (0-5); Neutrophil # 0.54 X10^3/uL (2.7-7.7); Neutrophil % 59.3 % (47-70); POSITIVE COUNT YES; POSITIVE DIFFERENTIAL YES; POSITIVE MORPHOLOGY YES; Platelet Count 58 K/mm3 (150-450); RBC Distribution Width CV 13.4 % (11.6-14.6); RBC Distribution Width SD 45.3 fl (35.1-43.9); Red Blood Count 3.29 M/mm3 (4.6-6.2)
[2019-07-21 13:53] LABS: Differential Indicated SCAN CRITERIA MET; White Blood Count 0.9 K/mm3 (4.4-11.0)
[2019-07-21 14:07] LABS: Differential Comment SCANNED; Hypochromasia 1+; Platelet Estimate MKD DEC (ADEQ)
[2019-07-21] MEDS: Lidocaine 2% Jelly 1 APPLIC Tube 2 APPLIC TOPICAL (14:20)
[2019-07-21] MEDS: Oxymetazoline 0.05% 1 SPRAY SPRAY.BTL 2 SPRAY NASAL (14:20)
[2019-07-21] MEDS: Silver Nitrate (BKC) 1 EACH TOPICAL (15:54)
[2019-07-21 16:11] VITALS: BP 123/87; PULSE 89; RESP 18; O2SAT 95
[2019-07-22 10:57] LABS: Pathologist Review Reviewed
== END 2019-07-21 18:01 | disposition home or self-care (01) ==
PROVIDERS: Emergency Provider Emergency Medicine; PCP Family Medicine
DX: D61.818 Other pancytopenia (principal); C34.90 Malignant neoplasm of unspecified part of unspecified bronchus or lung; R04.0 Epistaxis; E78.5 Hyperlipidemia, unspecified; Z87.891 Personal history of nicotine dependence
CPT/HCPCS: 36415; 80053; 85025; 99282

== ENCOUNTER 2019-07-22 17:25 | Inpatient (IN) | payer MEDICARE, OTHER, SELFPAY ==
[2019-07-21 12:11] VITALS: BMI 21.7
[2019-07-22] VITALS (16 sets, daily range): BP systolic 85–116; BP diastolic 50–62; PULSE 112–149; RESP 13–28; TEMP 36.5–37.9; O2SAT 89–100; BMI 23.8; BMI 20.9; BMI 21.0
--- NOTE | 2019-07-22 17:44 | EKG12_ITS ---
Test Reason : SOB Blood Pressure : / mmHG Vent. Rate : 150 BPM Atrial Rate : 150 BPM P-R Int : 124 ms QRS Dur : 088 ms QT Int : 270 ms P-R-T Axes : 029 -09 094 degrees QTc Int : 426 ms Sinus tachycardia Nonspecific ST and T wave abnormality Abnormal ECG Confirmed by SAMIR HUMPHREYS, NANI ([id number]), market editor CELE DANIELS ([id number]) on 07/29/2019 2:16:25 PM Referred By: SHU Confirmed By:NANI DAWSON MD
[2019-07-22 18:12] LABS: Absolute Lymphocyte Count 0.18 X10^3/uL (0.83-4.51); Absolute Neutrophil Count 0.2 X10^3/uL (2.0-7.7); Eosinophil# 0.01 X10^3/uL; Eosinophils% 1.9 % (0-5); Hemoglobin 8.1 g/dL (13.0-16.5); Lymphocyte # 0.18 X10^3/ul (4.0); Mean Corp Hgb Conc 31.2 g/dL (32-36); Mean Corpuscular Hgb 29.8 pg (27.0-32.0); Mean Corpuscular Volume 95.6 fL (80-94); Mean Platelet Vol. 9.6 fl (6.2-12.0); Monocyte# 0.09 X10^3/uL; NRBC Flagged by Analyzer 0 % (0-5); Neutrophil # 0.24 X10^3/uL (2.7-7.7); Neutrophil % 45.2 % (47-70); POSITIVE COUNT YES; POSITIVE DIFFERENTIAL YES; POSITIVE MORPHOLOGY YES; RBC Distribution Width CV 13.4 % (11.6-14.6); RBC Distribution Width SD 46.3 fl (35.1-43.9); Red Blood Count 2.72 M/mm3 (4.6-6.2)
[2019-07-22 18:18] LABS: Differential Indicated SCAN CRITERIA MET; Platelet Count 42 K/mm3 (150-450); White Blood Count 0.5 K/mm3 (4.4-11.0)
[2019-07-22 18:22] LABS: Prothrombin Time (Protime)PT. 37.1 SECONDS (11.7-14.9)
[2019-07-22] MEDS: 0.9% Normal Saline 1,000 ML 999 ML IV ×2 (18:22→19:39)
[2019-07-22 18:23] LABS: Partial Thromboplast Time 52.3 Seconds (24.1-36.2)
[2019-07-22 18:24] LABS: International Normalized Ratio 3.8
[2019-07-22 18:25] LABS: Base Excess 5 mmol/L (-2 to +2); Bicarbonate 26.4 mmol/L (22-26); PO2 134 mmHG (75-100); SO2 99 % (95-99); Total Carbon Dioxide 27 mmol/L; pCO2 27.4 mmHg (35-45); pH 7.59 (7.35-7.45)
[2019-07-22 18:28] LABS: ALB/GLOB Ratio 0.4 RATIO (0.9-2.4); AST(SGOT) 71 U/L (15-37); Alanine Aminotransfer ALT/SGPT 109 U/L (16-61); Albumin, Serum 1.7 g/dL (3.2-5.0); Alkaline Phosphatase 475 U/L (45-117); Anion Gap 11 (5-15); BUN 42 mg/dL (7-18); BUN/Creat Ratio 33.6 RATIO (10-20); Chloride 105 mmol/L (98-107); Creatinine, Serum 1.25 mg/dL (0.70-1.30); EST Glomerular Filtration Rate 61 mL/min (>60); Est Glom Filt Rate - Afr Amer 74 mL/min (>60); Estimated Creatinine Clearance 55.77 ml/min; Globulin 4.8 g/dL (2.2-4.2); Glucose 138 mg/dL (74-106); Potassium 3.9 mmol/L (3.5-5.1); Protein, Total 6.5 g/dL (6.4-8.2); Sodium Level 141 mmol/L (136-145)
--- NOTE | 2019-07-22 18:30 | RAD_ITS ---
STUDY: X-RAY CHEST REASON FOR EXAM: Male, 69 years old. shortness of breath TECHNIQUE: AP portable COMPARISON: February 06, 2019 FINDINGS: Bilateral perihilar interstitial thickening and patchy groundglass opacity in the right lower and left lower lobes possibly due to atypical viral pneumonia.. There is no demonstrated pleural abnormality. Normal size heart. Normal mediastinum and mirta. Normal visualized pulmonary arteries. Normal visualized aortic arch and descending thoracic aorta. Dorsal spine demonstrates degenerative change. Normal visualized ribs, clavicles, and shoulders. There is no demonstrated abnormality of the visualized soft tissue structures of the upper abdomen. RAD/Chest 1 View (Portable) IMPRESSION: Findings suspicious for viral pneumonia possibly due to covid 19 infection. Clinical correlation recommended Electronically Signed: Dexter Norman MD at 18:50 EDT , Service support ,
[2019-07-22 18:36] LABS: Lactic Acid 5.4 mmol/L (0.4-1.9)
[2019-07-22 18:38] LABS: Differential Comment SCANNED
[2019-07-22 18:39] LABS: Platelet Estimate MKD DEC (ADEQ)
--- NOTE | 2019-07-22 19:21 | HP.PCM_ITS ---
Problem List (1) Severe sepsis Status: Acute (2) Respiratory failure with hypoxia Status: Acute Qualifiers: Chronicity: acute Qualified Code(s): J96.01 - Acute respiratory failure with hypoxia (3) Pneumonia Status: Acute Qualifiers: Pneumonia type: due to unspecified organism Laterality: bilateral Lung location: unspecified part of lung Qualified Code(s): J18.9 - Pneumonia, unspecified organism (4) Suspected COVID-19 virus infection Status: Acute (5) Pancytopenia Status: Acute (6) Non-small cell lung cancer Status: Chronic Qualifiers: Laterality: unspecified laterality Qualified Code(s): C34.90 - Malignant neoplasm of unspecified part of unspecified bronchus or lung (7) Former smoker Status: Chronic (8) Hyperlipidemia Status: Chronic Qualifiers: Hyperlipidemia type: unspecified Qualified Code(s): E78.5 - Hyperlipidemia, unspecified (9) JOSE DAVID (obstructive sleep apnea) Status: Chronic (10) Chronic obstructive lung disease Status: Chronic Qualifiers: COPD type: unspecified COPD Qualified Code(s): J44.9 - Chronic obstructive pulmonary disease, unspecified (11) Hypertensive disorder Status: Chronic Qualifiers: Hypertension type: essential hypertension Qualified Code(s): I10 - Essential (primary) hypertension (12) Alcoholism Status: Chronic Comment: No intake since 03/2019. History of Present Illness Date of Admission: 07/22/19 Chief Complaint: Dyspnea The patient is a 69 y/o M w/ PMHx: Chronic COPD, Former Tobacco use, HTN, HLD, JOSE DAVID, EtOH Abuse, Lung CA on chemotherapy following w/ Dr. Cervantes who presents to the [facility] ED on 07/22/19 with history of diagnosis the week prior with pulmonary embolism to the right side started on Eliquis at that time with dyspnea associated also starting chemotherapy the week prior to current presentation, presenting to the ED on 07/21/2019 with unfortunate epistaxis with cauterization in the ED with return to home however he notes over the last several days progressively continued worsened dyspnea in addition to now onset over the last 24 hours reported cough of productive sputum occasionally blood-tinged, fever, arthralgia, myalgia, diarrhea, nausea, emesis, abdominal discomfort with bilateral lower quadrant cramping and occasional sharp stabbing pain, alteration to his sense of taste and smell as well as a bilateral frontal headache and congestion prompting ED return. Work-up in the ED included T 97.7, heart rate initially 149, BP 116/56, respiratory rate 28, 100% on 4 L with most recent repeat vitals heart rate 126, BP 111/61, respiratory rate 19, 100% on 4 L, CBC with WBC 0.5, hemoglobin 8.1, platelet 42 with neutropenia with ANC 0.2 and absolute lymphocytes 0.18 with increased immature granulocytes, coags with PT 37.1, INR 3.8, PTT 52.3, ABG with pH 7.59, bicarb 26.4, PCO2 27.4, PO2 134, CMP with BUN/creatinine 42/1.25, glucose 138, lactic acid 5.4, total bilirubin 2.50, AST/ALT 71/109, alk phos 475, troponin less than 0.015, blood culture x2 pending per ED, coronavirus PCR pending per ED, chest x-ray with findings suspicious for viral pneumonia possibly secondary to COVID-19 infection, EKG with sinus tachycardia with non-specific ST-T wave changes. In the ED patient ministered Zosyn, vancomycin and normal saline. Upon patient admission discussed case with the lehr stripper, Dr. Galdamez and updated patient's oncologist, Dr. Cervantes. Also notified infectious disease, Dr. Elizalde who will see the patient in AM. Past Medical History Past Medical History (Chronic Problems): Chronic Problems (Last Reviewed 05/23/19 @ 15:54 by Monica Arriaga NP-Brenda) Non-small cell lung cancer (Chronic) Bronchiectasis (Chronic) RLL Former smoker (Chronic) Hyperlipidemia (Chronic) JOSE DAVID (obstructive sleep apnea) (Chronic) Macrocytosis (Chronic) Inguinal hernia (Chronic) Chronic obstructive lung disease (Chronic) Hypertensive disorder (Chronic) Alcoholism (Chronic) No intake since 03/2019. History of tobacco abuse (Chronic) Continuous chronic alcoholism (Chronic) Medical History: Medical History (Last Reviewed 05/23/19 @ 15:54 by WOODY Webb) Former smoker (Acute) Z87.891 Hyperlipidemia (Chronic) E78.5 JOSE DAVID (obstructive sleep apnea) (Chronic) G47.33 Macrocytosis (Chronic) D75.89 Inguinal hernia (Chronic) K40.90 Chronic obstructive lung disease (Chronic) J44.9 Hypertensive disorder (Chronic) I10 Alcoholism (Chronic) F10.20 Allergies No Known Allergies Allergy (Verified 07/21/19 12:13) Home Medications: Ambulatory Orders Medication Instructions Recorded multivitamin 1 tab PO DAILY 01/20/19 atorvastatin 10 mg tablet 10 mg PO QHS 01/21/19 Azithromycin [Zithromax Z-Cortez] 250 mg PO UD #1 box 07/17/19 Oxycodone [Oxyir] 5 - 10 mg PO Q6H PRN PRN 07/17/19 Apixaban [Eliquis] 5 - 10 mg PO BID 07/22/19 Dexamethasone [Decadron] 4 mg PO BIDCM 07/22/19 Ondansetron HCl [Zofran] 8 mg PO Q8H PRN PRN 07/22/19 Surgical History: Surgical History (Last Reviewed 05/23/19 @ 15:54 by WOODY Webb) History of carpal tunnel surgery (Resolved) Z98.890 History of inguinal hernia repair (Resolved) Z98.890, Z87.19 History of appendectomy (Resolved) Z90.49 History of colonoscopy Onset Date: ~2013 Z98.890 Surgical History: herniorrhaphy, - - Vasectomy, appendectomy, left inguinal hernia repair, bilateral hand surgery, bilateral carpal tunnel surgery. Psychiatric History: No pertinent psych hx Lives: Spouse/ Significant Other Smoking Status: Former smoker - Patient quit cigarette tobacco usage in 2012 with prior to this 2 pack/day since he had been a teenager. Tobacco Use: Non-smoker Alcohol: Heavy - Patient had been drinking considerable amount of beer however he has not been drinking since March. Drugs: None - *Family History Maternal Family History: Family History (Last Reviewed 05/23/19 @ 15:54 by WOODY Webb) Father Hypertension Cancer CVA (cerebral vascular accident) Mother Heart disease History Items: Heart Disease - Maternal family history of heart disease, pacemaker status. Paternal Family History: Family History (Last Reviewed 05/23/19 @ 15:54 by WOODY Webb) Father Hypertension Cancer CVA (cerebral vascular accident) Mother Heart disease History Items: Cancer - Father with history of prostate cancer., High Cholesterol, Hypertension, Stroke Review of Systems Constitutional: Reports: Anorexia, Fever, Malaise, Weakness, Fatigue. Denies: Chills, Weight Change HEENT: Reports: Head Aches, Nasal Congestion, Sinus Congestion, Sore Throat. Denies: Sinus Drainage Cardiovascular: Denies: Chest Pain, Chest Pressure, Chest Tightness, Light Headedness, Palpitations, Syncope Respiratory: Reports: Cough, Hemoptysis, Shortness of breath at rest, Shortness of breath upon exertion, Sputum production Gastrointestinal: Reports: Abdominal Pain, Diarrhea, Nausea, Vomiting Genitourinary: Denies: Dysuria Musculoskeletal: Reports: Back Pain, Joint Pain, Muscle pain. Denies: Joint Tenderness Skin: Denies: Rash, Wounds Neurological: Denies: Numbness, Tingling, Focal weakness Psychiatric: Reports: Anxiety, Depression. Denies: Homicidal Ideations, Suicidal Ideations Hematologic/ Lymphatic: Reports: Anemia, Easy Bruising, Easy Bleeding VTE Information - Inpt Only VTE Present on Admission: No VTE Mechan Device Prophylaxis: SCD's VTE Pharm Prophylaxis ordered?: Yes Patient Problems: Active and Suspected Problems (Last Reviewed 05/23/19 @ 15:54 by Monica Arriaga NP-C) Severe sepsis (Acute) Respiratory failure with hypoxia (Acute) Pneumonia (Acute) Suspected COVID-19 virus infection (Acute) Pancytopenia (Acute) Subjective: Laying in the ED bed, fatigued and ill-appearing, increased respiratory rate and accessory muscle usage, evidence of respiratory distress. Objective: Physical Examination: General: awake, alert, oriented to self, place and recent events, remains cooperative, recent evidence of emesis, laying in the ED bed, fatigued and ill- appearing, increased work of breathing and accessory muscle usage, evidence of respiratory distress. Skin: normal color, turgor, no icterus, cyanosis. HEENT: AT/NC, EOMI, PERRLA, dry MM, no carotid bruits or JVD noted. Lungs: Diffusely diminished breath sounds, greater bases, increased respiratory rate, accessory muscle usage, evidence of distress, no obvious rales, ronchi or wheezing. Heart: Tachycardic with regular; no gallop, rub audible. Abdomen: soft, discomfort with palpation of the abdomen, greater bilateral lower quadrants, voluntary guarding, no obvious abdominal distention, hyperactive bowel sounds, difficult assessment of HSM secondary to abdominal discomfort with examination. Extremities: no cyanosis, clubbing, or edema. Neurological: patient awake, alert, oriented as noted; cognitive function near baseline but given fatigue and lethargy decreased; pupils equally reactive to light and accomodation; cranial nerves II-XII grossly normal, moving all 4 extremities, no focal deficits, strength severely global decrease secondary to acute presentation Psychiatric: affect appears fatigued, ill-appearing, no acute evidence of depressive or anxiety feelings. - Physical Exam Vitals/I&O's: Vital Signs Temp Pulse Resp BP Pulse Ox 97.9 F 126 H 19 H 111/61 100 07/22/19 18:44 07/22/19 19:00 07/22/19 19:00 07/22/19 19:00 07/22/19 19:00 Oxygen Flow Rate (L/min) 4 Oxygen Delivery Method Nasal Cannula Weight: 161 lb 12.8 oz Body Mass Index (BMI) 23.8 Laboratory Results 07/22/19 17:55: WBC 0.5 L*, RBC 2.72 L, Hgb 8.1 L, Hct 26.0 L, MCV 95.6 H, MCH 29.8, MCHC 31.2 L, RDW Std Deviation 46.3 H, RDW Coeff of Nevin 13.4, Plt Count 42 L*, MPV 9.6, Immature Gran % (Auto) 1.900 H, Neut % (Auto) 45.2 L, Lymph % (Auto) 34.0, [place] % (Auto) 17.0 H, Eos % (Auto) 1.9, Baso % (Auto) 0.0, Absolute Neuts (auto) 0.2 L, Absolute Lymphs (auto) 0.18 L, Nucleated RBC % 0, Differential Comment SCANNED, Diff Path Review July buzz, Platelet Estimate MKD 07/22/19 17:55: PT 37.1 H, INR 3.8 H*, APTT 52.3 H 07/22/19 17:55: Sodium 141, Potassium 3.9, Chloride 105, Carbon Dioxide 25.0, Anion Gap 11, BUN 42 H, Creatinine 1.25, Estim Creat Clear Calc 55.77, Est GFR (MDRD) Af Amer 74, Est GFR (MDRD) Non-Af 61, BUN/Creatinine Ratio 33.6 H, Glucose 138 H, Calcium 10.0, Total Bilirubin 2.50 H, AST 71 H, ALT 109 H, Alkaline Phosphatase 475 H, Troponin I < 0.015, Total Protein 6.5, Albumin 1.7 L , Globulin 4.8 H, Albumin/Globulin Ratio 0.4 L 07/22/19 17:55: Lactic Acid 5.4 H* 07/22/19 18:00: COVID-19 (YADY) Cancelled 07/22/19 18:14: pH 7.59 H, Bicarbonate Actual 26.4 H, POC Total CO2 27, Base Excess 5 H, O2 Saturation 99, ABG pCO2 27.4 L, ABG pO2 134 H Current Medications Sodium Chloride () 1,000 mls @ 999 mls/hr IV .Q1H1M ONE Stop: 07/22/19 19:55 Piperacillin Sod/Tazobactam (Sod 4.5 gm/ Sodium Chloride) 100 mls @ 200 mls/hr IV X1 ONE Stop: 07/22/19 19:25 Vancomycin HCl (Vancomycin) 1,000 mg in 200 mls @ 200 mls/hr IV X1 ONE Stop: 07/22/19 20:29 Assessment/Plan All Active Problems (Last Reviewed 05/23/19 @ 15:54 by Monica Arriaga, DYAN-C) Severe sepsis (Acute) Respiratory failure with hypoxia (Acute) Pneumonia (Acute) Suspected COVID-19 virus infection (Acute) Pancytopenia (Acute) Supraclavicular lymphadenopathy (Acute) Esophageal lesion (Acute) Multiple lung nodules on CT (Acute) Right lower lobe pulmonary nodule (Acute) History of carpal tunnel surgery (Resolved) History of inguinal hernia repair (Resolved) History of appendectomy (Resolved) The patient is a 69 y/o M w/ PMHx: Chronic COPD, Former Tobacco use, HTN, HLD, JOSE DAVID, EtOH Abuse, Lung CA on chemotherapy following w/ Dr. Cervantes who presents to the [facility] ED on 07/22/19 with history of diagnosis the week prior with pulmonary embolism to the right side started on Eliquis at that time with dyspnea associated also starting chemotherapy the week prior to current presentation, presenting to the ED on 07/21/2019 with unfortunate epistaxis with cauterization in the ED with return to home however he notes over the last several days progressively continued worsened dyspnea in addition to now onset over the last 24 hours reported cough of productive sputum occasionally blood-tinged, fever, arthralgia, myalgia, diarrhea, nausea, emesis, abdominal pain, alteration to his sense of taste and smell as well as a bilateral frontal headache and congestion prompting ED return. 1. Acute Severe Sepsis secondary to Acute Hypoxic Respiratory Failure secondary to Bilateral Pneumonia , Possible GN/GP although more likely secondary to Suspected Acute Viral Syndrome, COVID-19: Patient with leukopenia, lymphopenia, CXR with findings consistent with possible COVID-19 infection. Given severity of presentation will admit to the ICU with COVID precautions with initial COVID t est per ED negative; however, high suspicion with pending AM repeat COVID testing, planned ICU and ID consultations, maintain on oxygen with wean as tolerated to room air, consider BIPAP if needed, continue PRN albuterol, maintain on IV Zosyn and Vancomycin w/ pending MRSA screen, HOB, IS parameters w/ pending sputum cultures, respiratory viral panel and urine antigens, will obtain procalcitonin, CRP, CPK, Ferritin, LDH, D-dimer, continue supportive care including q 2 hour turning including prone given no prone bed availability and judicious hydration, closely monitor for worsening status for ARDS and multiorgan failure. C-diff and enteric pathogen requested. UA not marked, pending UCx, Bld cx x 2 obtained in the ED. 2. Elevated bilirubin, LFTs: Noted to have progressed over the last day, elevated on 07/21/2019 as well as current presentation, total bilirubin 2.50, AST/ALT 71/109, given history do suspect COVID and would be associated however to be cautious will obtain hepatitis panel and liver ultrasound. 3. Lung cancer, non-small cell: Unclear specific side, following with Dr. Cervantes, recent chemotherapy the week prior, will obtain magnesium and phosphorus levels and replete if appropriate, patient's oncologist has been updated on his current presentation and acutely ill status. Dr. Cervantes did state that patient has been declining and he has discussed transition to hospice with patient and family. 4. Chronic COPD: Will maintain on oxygen with wean as tolerated to room air, continue ATC duonebs, PRN albuterol, transition to inhalers if COVID repeat positive, HOB, IS parameters. 5. Pancytopenia, acute: Likely secondary to recent chemotherapy, acute infection and possibly oral anticoagulation, will continue to closely monitor with repeat CBC, transitioning from Eliquis to heparin drip with close continued monitoring and hold if necessary. 6. History of recent pulmonary embolism: Recent PE diagnosis approximately 1 week prior, had been on Eliquis with hold with recent 07/21/2019 epistaxis, ED evaluation with cauterization at that time, holding Eliquis with heparin transition, hold if recurrent epistaxis or bleeding including significant hemoptysis given presentation. Plex ultrasound ordered to bilateral lower extremities per discussion with lehr stripper. 7. History of alcohol abuse: Patient denies any significant alcohol intake since March but prior to this had drinking beer heavily he notes. 8. JOSE DAVID: As noted given acute presentation may consider BiPAP therapy. 9. Hypertension: Noted history, not on regimen, hypotensive in the ED, continue to closely monitor. 10. Former tobacco usage: Encouraged continued tobacco cessation. 11. Hyperlipidemia: Continue home statin regimen however closely monitor CMP as elevated AST and ALT. 12. DVT prophylaxis: SCDs, heparin drip as noted with hold on oral Eliquis, cautiously monitor given history of epistaxis and thrombocytopenia. 13. CODE status: Patient notes his is his HCPOA. Discussed CODE status at length including difference between FULL code, DNR-CCA and DNR-CC status. Following discussions about the differences in these status, requested DNR-CCA, no intubation status. He notes being amenable to BIPAP if necessary. Advanced Care Planning Face to Face Time: 16 minutes. Inpatient E&M: 16984 Init Hosp L3 Procedures: 81860 Advncd Care Plan 30 Min
--- NOTE | 2019-07-22 19:37 | ED.VISSUMM ---
- ER Visit Summary Date of Service: 07/22/19 Chief Complaint: Dyspnea History of Present Illness: The patient is a 69 M with shortness of breath. This started days ago and is gradually increasing. Symptoms are severe. He denies associated symptoms. He has a history of lung cancer, non-small cell and follows with Dr. Cervantes. According to the patient, he had chemotherapy early last week. He was also evaluated last week and found to have a PE. He was started on Eliquis. He had been doing okay, and then over the last few days, he is increasingly short of breath. He was also seen yesterday for nosebleed which was cauterized and has improved. He denies any other bleeding. Denies fever, cough, hemoptysis, chest pain. Physical Examination: Afebrile and vital signs unremarkable except for heart rate of 149 and respiratory rate of 28. Pulse ox is in the 90s on nasal cannula. Lungs are diminished. Heart tachycardic but regular. Abdomen soft. Extremities nontender. Skin pale. Test Results: EKG showed sinus rhythm at a rate of 150. Chest x-ray showed findings concerning for viral pneumonia. COVID testing is pending. CBC shows pancytopenia. Metabolic panel shows elevated liver enzymes. He is not having any abdominal pain or GI symptoms currently. Troponin was normal. Lactate was 5.4. pH 7.59, CO2 27, O2 134. Cultures pending. Emergency Department Course and Treatment: Patient was maintained on nasal cannula oxygen with COVID precautions. I spoke with him and he does not want any artificial life support. He is DNR Comfort Care arrest with no intubation. We started fluid resuscitation and continued oxygen and monitoring. Work-up as above. Heart rate has improved to the 1 teens. Blood pressure has been stable. He is afebrile. COVID testing is still pending and we will maintain precautions. Lactate was elevated at 5.4. He received additional fluids and will start broad-spectrum antibiotic coverage given that he is on chemotherapy. He received Zosyn and vancomycin. This may also be viral. Patient was discussed with the hospitalist and will be admitted to the ICU for further care. Treatment Plan: As above Disposition: Admission Impression: Septic shock, lung cancer, pancytopenia This note was generated with [employer] software. It may contain incorrect words, spelling, and punctuation that were not noted in review of the chart prior to signing ED Disposition - Plan for ED Patient: Referrals: Johnathon Francois MD [Primary Care Provider] -
[2019-07-22] MEDS: Vancomycin IV 1,000 MG/200 ML BAG 200 MG IV (19:52)
--- NOTE | 2019-07-22 19:55 | ED.RN ---
previous rn reports attempting a straight cath for urine and was unable to push past the prostate. pt again attempted to give a urine same and was unable to urinate
[2019-07-22] MEDS: Ondansetron 4 MG/2 ML Vial IV (20:06)
[2019-07-22] MEDS: 0.9% Normal Saline 1,000 ML 100 ML IV (21:31)
--- NOTE | 2019-07-22 21:56 | PCM.RX.CS ---
Consult Pharmacy has been consulted to manage selected antiobiotic: Vancomycin Type of Consult: New start Suspected Infection: Pneumonia Prior Doses of Antibiotics Received/Current Regimen: Medications Vancomycin HCl 750 mg/ Sodium (Chloride) 265 mls @ 250 mls/hr IV Q12H ALTON Discontinued Medications Vancomycin HCl (Vancomycin) 1,000 mg in 200 mls @ 200 mls/hr IV X1 ONE Stop: 07/22/19 20:29 Last Admin: 07/22/19 20:55 Dose: Infused Labs: Sodium 141 mmol/L (136-145) 07/22/19 17:55 Potassium 3.9 mmol/L (3.5-5.1) 07/22/19 17:55 Chloride 105 mmol/L (98-107) 07/22/19 17:55 Carbon Dioxide 25.0 mmol/L (21.0-32.0) 07/22/19 17:55 Anion Gap 11 (5-15) 07/22/19 17:55 BUN 42 mg/dL (7-18) H 07/22/19 17:55 Creatinine 1.25 mg/dL (0.70-1.30) 07/22/19 17:55 Est GFR (MDRD) Af Amer 74 mL/min (>60) 07/22/19 17:55 Est GFR (MDRD) Non-Af 61 mL/min (>60) 07/22/19 17:55 BUN/Creatinine Ratio 33.6 RATIO (10-20) H 07/22/19 17:55 Glucose 138 mg/dL (74-106) H 07/22/19 17:55 Microbiology: Microbiology 07/22/19 18:00 Mucosa - Nasopharyngeal Coronavirus COVID-19 PCR - Final Weight used for dosin.2 kg Estimated Creatinine Clearance: 55.8 Goal Trough: 15-20 mcg/mL Pharmacy Plan for Drug Dosing: Pharmacy Service will continue to monitor and adjust dosing as required. Follow-Up Labs: Trough Vancomycin Labs to be done on [date and time ordered]: 07/24/19 @[id number]
[2019-07-22] MEDS: 0.9% Saline Lock 10 ML Syringe IV (21:57)
[2019-07-22 22:05] LABS: Reflex Lactate? Y
[2019-07-22 22:18] LABS: Ferritin 11547 ng/mL (26-388); LDH 357 U/L (87-241); Phosphorus 3.6 mg/dL (2.5-4.9)
[2019-07-22 22:20] LABS: Partial Thromboplast Time 50.4 Seconds (24.1-36.2)
[2019-07-22 22:24] LABS: D-Dimer Quantitative (DVT/PE) 2.67 FEU/ug/m (0.27-0.49)
[2019-07-22] MEDS: Heparin Injection (Vial) 5,000 UNIT/ML VIAL 5000 UNIT IV (22:35)
[2019-07-22 22:37] LABS: Bacteria 0 SEEN /hpf (None Seen); Mucous, Urine 0 SEEN /hpf (<or=2+); Red Blood Cells-Urine 0 SEEN /hpf (0-5); Squamous Epithelial Cells - UA 0 SEEN /hpf (0-5)
[2019-07-22] MEDS: HEPARIN/D5w 25,000 UNITS 25,000 UNITS/250 ML IV.SOLN. 11 UNITS IV (22:37)
[2019-07-22] MEDS: Lidocaine Jelly 2% 20 ML Syringe (URO-JET) 20 APPLIC TOPICAL (22:40)
[2019-07-22 22:44] LABS: Color, Urine Amber (Yellow); Glucose, Dipstick Normal (Normal); Ketone-Dipstick 5 mg/dl (Negative); Leukocyte Esterase-Dipstick 25 /ul (Negative); Nitrite-Dipstick Negative (Negative); Occult Blood-Urine 10 /ul (Negative); Protein-Dipstick 30 mg/dl (Negative); Specific Gravity, Urine 1.015 (1.002-1.030); Urine Clarity Sl. Cloudy (Clear); Urine Urobilinogen 1 mg/dl (Normal)
[2019-07-22 22:49] LABS: Urine Bilirubin Dipstick 3 mg/dL (Negative)
[2019-07-22 22:51] LABS: White Blood Cells 0-5 SEEN /hpf (0-5)
[2019-07-22 22:52] LABS: Hyaline Cast 0-5 SEEN /lpf (0-5)
[2019-07-22 23:10] LABS: Lactic Acid 2.2 mmol/L (0.4-1.9)
[2019-07-22 23:23] LABS: M R Staph aureus DNA By PCR Negative (Negative); Probe Check PASS; Specimen Processing Control PASS
[2019-07-23] VITALS (45 sets, daily range): BP systolic 93–124; BP diastolic 38–82; PULSE 72–106; RESP 9–27; TEMP 36.7–38; O2SAT 95–100
--- NOTE | 2019-07-23 00:06 | US_ITS ---
STUDY: ABDOMINAL ULTRASOUND - RIGHT UPPER QUADRANT REASON FOR VISIT: Male, 69 years old abn labs TECHNIQUE: Ultrasound evaluation of the right upper quadrant was performed with real-time and static dickinson-scale imaging. TECHNICAL QUALITY: Adequate. COMPARISON: None. FINDINGS: Liver: The liver measures 18.3 cm. There is normal echogenicity of the liver. The bile ducts are within normal limits. There is hepatic color flow. The direction of portal flow is hepatopetal. 2 x 4 cm markedly hyperechoic mass within the right lobe of the liver likely consistent with hemangioma and correlation with liver mass protocol CT is recommended. Gallbladder: Normal distended gallbladder. The gallbladder wall measures 2 mm. There is a positive sonographic Ramsey''s sign. There is no pericholecystic fluid. There is biliary sludge dependent within the gallbladder. Common Bile Duct (C.B.D.): The common bile duct measures 13 mm. Pancreas: There is nonvisualization of the pancreas.. Right Kidney: Normal size of the right kidney. The right kidney measures 10.6 cm. Normal renal cortex. The right cortex measures 2.1 cm. 1.5 cm exophytic cyst of the lower pole the right kidney. There is no right hydronephrosis. US/Abdomen Limited IMPRESSION: 1. Gallbladder sludge with a positive sonographic Ramsey sign worrisome for acute or chronic cholecystitis. Clinical correlation is recommended. 2. Severe extrahepatic biliary ductal dilatation worrisome for biliary obstruction and correlation with MRCP or ERCP is recommended. 3. 2 x 4 cm hyperechoic mass within the right lobe of liver correlation with liver mass protocol CT is recommended. Electronically Signed: Kevin Light MD at 8:26 EDT Tel , Service support ,
[2019-07-23 00:20] LABS: Procalcitonin 5.69 ng/mL (0.00-0.09)
[2019-07-23 01:45] LABS: Hematocrit 20.5 % (40-54); Hemoglobin 6.6 g/dL (13.0-16.5); Mean Corp Hgb Conc 32.2 g/dL (32-36); Mean Corpuscular Volume 93.2 fL (80-94); Mean Platelet Vol. 8.7 fl (6.2-12.0); POSITIVE COUNT YES; POSITIVE DIFFERENTIAL YES; POSITIVE MORPHOLOGY YES; RBC Distribution Width CV 13.4 % (11.6-14.6); RBC Distribution Width SD 44.9 fl (35.1-43.9)
[2019-07-23 02:04] LABS: White Blood Count 0.5 K/mm3 (4.4-11.0)
[2019-07-23 02:05] LABS: Platelet Count 31 K/mm3 (150-450)
[2019-07-23 02:48] LABS: Differential Indicated MANUAL DIFF
[2019-07-23 03:22] LABS: ALB/GLOB Ratio 0.3 RATIO (0.9-2.4); AST(SGOT) 53 U/L (15-37); Alanine Aminotransfer ALT/SGPT 83 U/L (16-61); Albumin, Serum 1.3 g/dL (3.2-5.0); Alkaline Phosphatase 339 U/L (45-117); Anion Gap 11 (5-15); BUN 58 mg/dL (7-18); BUN/Creat Ratio 34.3 RATIO (10-20); Chloride 105 mmol/L (98-107); Creatinine, Serum 1.69 mg/dL (0.70-1.30); EST Glomerular Filtration Rate 43 mL/min (>60); Est Glom Filt Rate - Afr Amer 52 mL/min (>60); Estimated Creatinine Clearance 42.13 ml/min; Glucose 115 mg/dL (74-106); Protein, Total 5.3 g/dL (6.4-8.2); Sodium Level 143 mmol/L (136-145)
[2019-07-23 03:32] LABS: Lymphocyte 38 % (19-41); Monocyte 6 % (0-10); Neutrophil-Band 14 % (0-5); Neutrophil-Segmented 42 % (47-70)
[2019-07-23 03:33] LABS: Absolute Lymphocyte Count 0.19 X10^3/uL (0.83-4.51); Absolute Neutrophil Count 0.3 X10^3/uL (2.0-7.7); Lymphocyte # 0.19 X10^3/ul (4.0); Monocyte# 0.03 X10^3/uL; Neutrophil # 0.28 X10^3/uL (2.7-7.7)
[2019-07-23 03:34] LABS: Platelet Estimate MKD DEC (ADEQ); Scan Smear per Review Criteria MANUAL DIFF
[2019-07-23 03:41] LABS: Prothrombin Time (Protime)PT. 43.9 SECONDS (11.7-14.9)
[2019-07-23 03:44] LABS: D-Dimer Quantitative (DVT/PE) 2.47 FEU/ug/m (0.27-0.49); International Normalized Ratio 4.7
[2019-07-23] MEDS: 0.9% Normal Saline 1,000 ML 100 ML IV ×2 (04:54→20:59)
--- NOTE | 2019-07-23 06:21 | CON.PCM_ITS ---
Reason for Consult Date of Consultation: 07/23/19 Reason for Consultation: Acute respiratory failure History of Present Illness: The patient is a 69-year-old male, with a history as outlined below, who presented to the emergency department on July 21 with complaints of shortness of breath, blood tinged sputum production, fevers, nausea, vomiting and abdominal pain. The patient was also recently diagnosed with pulmonary emboli on CTA chest from July 16. He does carry a diagnosis of non-small cell lung cancer and is currently being followed by Dr. Cervantes of oncology. The patient was apparently just recently started on chemotherapy. He is systemically anticoagulated on Eliquis. On presentation to the emergency department, the patient was noted to be afebrile but was tachycardic and tachypneic. Laboratory evaluation revealed evidence of pancytopenia. Coagulation profile revealed an elevated INR to 3.8. Chemistry profile was notable for an elevated lactate to 5.4. Total bili was increased to 2.5 with an elevated AST to 71 and ALT of 109. Troponin was negative. Procalcitonin was elevated to 5.69. MRSA screen was negative. Chest x-ray revealed subtle patchy infiltrates in the bilateral lower lobes. The patient received supplemental IV fluids and was placed on broad-spectrum antimicrobials. He was subsequently transferred to the medical intensive care unit for further management. Overnight, the patient has continued to report the presence of abdominal pain. Due to the presence of pancytopenia, the patient's Eliquis was placed on hold and he was transitioned to a continuous heparin infusion. Overnight, the patient developed bright red blood per rectum and his hemoglobin dropped to 6.6 g/dL. His platelet count also dropped to 31,000. Therefore, all forms of systemic anticoagulation were discontinued. The patient was ordered to receive 2 units of packed red blood cells along with platelets. Over concerns at the patient had continued episodes of nausea and emesis overnight, the use of BiPAP was contraindicated. Accordingly, orders for Airvo replaced. The patient is currently maintaining appropriate oxygen saturations with an FiO2 requirement of 50%. Per my conversation with the patient's oncologist, Dr. Cervantes, this morning, the patient has an overall poor prognosis. He was recently started on a combination of chemotherapy and immunotherapy last week. He has already received palliative radiation treatment to his sacrum. He has had extensive weight loss associated with the recent diagnosis of his lung cancer. The idea of possible referral to hospice has also been considered. Past Medical History Past Medical History (Chronic Problems): Chronic Problems (Last Reviewed 05/23/19 @ 15:54 by WOODY Webb) Non-small cell lung cancer (Chronic) Bronchiectasis (Chronic) RLL Former smoker (Chronic) Hyperlipidemia (Chronic) JOSE DAVID (obstructive sleep apnea) (Chronic) Macrocytosis (Chronic) Inguinal hernia (Chronic) Chronic obstructive lung disease (Chronic) Hypertensive disorder (Chronic) Alcoholism (Chronic) No intake since 03/2019. History of tobacco abuse (Chronic) Continuous chronic alcoholism (Chronic) Medical History: Medical History (Last Reviewed 05/23/19 @ 15:54 by WOODY Webb) Former smoker (Chronic) Z87.891 Hyperlipidemia (Chronic) E78.5 JOSE DAVID (obstructive sleep apnea) (Chronic) G47.33 Macrocytosis (Chronic) D75.89 Inguinal hernia (Chronic) K40.90 Chronic obstructive lung disease (Chronic) J44.9 Hypertensive disorder (Chronic) I10 Alcoholism (Chronic) F10.20 No intake since 03/2019. Allergies No Known Allergies Allergy (Verified 07/21/19 12:13) Home Medications: Ambulatory Orders Medication Instructions Recorded multivitamin 1 tab PO DAILY 01/20/19 atorvastatin 10 mg tablet 10 mg PO QHS 01/21/19 Azithromycin [Zithromax Z-Cortez] 250 mg PO UD #1 box 07/17/19 Oxycodone [Oxyir] 5 - 10 mg PO Q6H PRN PRN 07/17/19 Apixaban [Eliquis] 5 - 10 mg PO BID 07/22/19 Dexamethasone [Decadron] 4 mg PO BIDCM 07/22/19 Ondansetron HCl [Zofran] 8 mg PO Q8H PRN PRN 07/22/19 Surgical History: Surgical History (Last Reviewed 05/23/19 @ 15:54 by WOODY Webb) History of carpal tunnel surgery (Resolved) Z98.890 History of inguinal hernia repair (Resolved) Z98.890, Z87.19 History of appendectomy (Resolved) Z90.49 History of colonoscopy Onset Date: ~2013 Z98.890 Surgical History: herniorrhaphy, - - Vasectomy, appendectomy, left inguinal hernia repair, bilateral hand surgery, bilateral carpal tunnel surgery. Psychiatric History: No pertinent psych hx Lives: Spouse/ Significant Other Smoking Status: Former smoker - Patient quit cigarette tobacco usage in 2012 with prior to this 2 pack/day since he had been a teenager. Tobacco Use: Non-smoker Alcohol: Heavy - Patient had been drinking considerable amount of beer however he has not been drinking since March. Drugs: None - *Family History Maternal Family History: Family History (Last Reviewed 05/23/19 @ 15:54 by WOODY Webb) Father Hypertension Cancer CVA (cerebral vascular accident) Mother Heart disease History Items: Heart Disease - Maternal family history of heart disease, pacemaker status. Paternal Family History: Family History (Last Reviewed 05/23/19 @ 15:54 by WOODY Webb) Father Hypertension Cancer CVA (cerebral vascular accident) Mother Heart disease History Items: Cancer - Father with history of prostate cancer., High Cholesterol, Hypertension, Stroke Review of Systems Constitutional: Reports: Malaise. Denies: Chills, Fever Eyes: Denies: Blurred vision, Double vision HEENT: Denies: Head Aches, Sinus Congestion, Sinus Drainage Cardiovascular: Denies: Chest Pain, Chest Pressure Respiratory: Reports: Cough, Hemoptysis, Shortness of Breath Gastrointestinal: Reports: Abdominal Pain, Diarrhea, Nausea, Vomiting Genitourinary: Reports: Hematuria Musculoskeletal: Reports: Back Pain Skin: Denies: Rash, Wounds Neurological: Denies: Numbness, Tingling, Focal weakness Psychiatric: Reports: Anxiety, Depression Hematologic/ Lymphatic: Reports: Anemia, Hx of blood clot, Hx of blood transfusion Patient Problems: Active and Suspected Problems (Last Reviewed 05/23/19 @ 15:54 by WOODY Webb) Severe sepsis (Acute) Respiratory failure with hypoxia (Acute) Pneumonia (Acute) Suspected COVID-19 virus infection (Acute) Pancytopenia (Acute) Objective: The patient's most recent lab work, culture data and imaging studies have all been personally reviewed. Coronavirus PCR was negative. Respiratory viral panel was negative. Strep and urine Legionella antigens were negative. C. difficile was negative. Blood and urine cultures are pending. - Physical Exam Vitals/I&O's: Vital Signs Temp Pulse Resp BP Pulse Ox 99.8 F H 101 H 20 H 110/58 L 100 07/23/19 06:04 07/23/19 06:04 07/23/19 06:04 07/23/19 06:04 07/23/19 06:04 Oxygen Flow Rate (L/min) 6 Oxygen Delivery Method Bi-pap Weight: 160 lb 7.944 oz Body Mass Index (BMI) 20.9 Intake and Output for Last 24 Hours 07/21/19 07/22/19 07/23/19 23:59 23:59 23:59 Intake Total 2550 / 2750 1196.70 / 1196.70 Output Total 400 / 400 Balance 2550 / 2600 796.70 / 796.70 General: Alert, Cooperative, - - Ill-appearing HEENT: Atraumatic, PERRLA, Normocephalic Oral: No Gingival or Mucosal Lesions/ Ulcerations Neck: Supple, No Nodes, Trachea Midline Lungs: No rhonchi, No wheeze, No rales, Diminished Cardiovascular: Regular rate, Regular Rhythm, Normal S1, Normal S2 Abdomen: Bowel Sounds Present, Soft, Tender Extremities: No clubbing, No cyanosis, No edema Skin: No breakdown Musculoskeletal: No Tenderness to Palpation of Joints or Extremities Neurological: Cranial nerves II-XII grossly intact, Neuro grossly intact Psych/Mental Status: Normal Affect, Appropriate Labs (Last 48 Hours) 07/22/19 07/22/19 07/22/19 17:55 17:55 17:55 WBC 0.5 L* RBC 2.72 L Hgb 8.1 L Hct 26.0 L MCV 95.6 H MCH 29.8 MCHC 31.2 L RDW Std Deviation 46.3 H RDW Coeff of Nevin 13.4 Plt Count 42 L* MPV 9.6 Immature Gran % (Auto) 1.900 H Neut % (Auto) 45.2 L Lymph % (Auto) 34.0 [place] % (Auto) 17.0 H Eos % (Auto) 1.9 Baso % (Auto) 0.0 Absolute Neuts (auto) 0.2 L Absolute Lymphs (auto) 0.18 L Neutrophils % (Manual) Band Neutrophils % Lymphocytes % (Manual) Monocytes % (Manual) Nucleated RBC % 0 Differential Comment SCANNED Diff Path Review May foll Platelet Estimate MKD DEC PT 37.1 H INR 3.8 H* APTT 52.3 H D-Dimer Quant (PE/DVT) pH Bicarbonate Actual POC Total CO2 Base Excess O2 Saturation ABG pCO2 ABG pO2 Sodium 141 Potassium 3.9 Chloride 105 Carbon Dioxide 25.0 Anion Gap 11 BUN 42 H Creatinine 1.25 Estim Creat Clear Calc 55.77 Est GFR (MDRD) Af Amer 74 Est GFR (MDRD) Non-Af 61 BUN/Creatinine Ratio 33.6 H Glucose 138 H Lactic Acid Calcium 10.0 Phosphorus Magnesium Ferritin Total Bilirubin 2.50 H AST 71 H ALT 109 H Alkaline Phosphatase 475 H Lactate Dehydrogenase Troponin I < 0.015 C-React Prot Ext Range Total Protein 6.5 Albumin 1.7 L Globulin 4.8 H Albumin/Globulin Ratio 0.4 L Procalcitonin Urine Color Urine Clarity Urine pH Ur Specific [place] Urine Protein Urine Glucose (UA) Urine Ketones Urine Occult Blood Urine Nitrite Urine Bilirubin Urine Urobilinogen Ur Leukocyte Esterase Urine RBC Urine WBC Ur Squamous Epith Cells Urine Bacteria Hyaline Casts Urine Mucus COVID-19 (YADY) MRSA (PCR) Blood Type Antibody Screen Crossmatch 07/22/19 07/22/19 07/22/19 17:55 17:55 18:00 WBC RBC Hgb Hct MCV MCH MCHC RDW Std Deviation RDW Coeff of Nevin Plt Count MPV Immature Gran % (Auto) Neut % (Auto) Lymph % (Auto) [place] % (Auto) Eos % (Auto) Baso % (Auto) Absolute Neuts (auto) Absolute Lymphs (auto) Neutrophils % (Manual) Band Neutrophils % Lymphocytes % (Manual) Monocytes % (Manual) Nucleated RBC % Differential Comment Diff Path Review Platelet Estimate PT INR APTT D-Dimer Quant (PE/DVT) pH Bicarbonate Actual POC Total CO2 Base Excess O2 Saturation ABG pCO2 ABG pO2 Sodium Potassium Chloride Carbon Dioxide Anion Gap BUN Creatinine Estim Creat Clear Calc Est GFR (MDRD) Af Amer Est GFR (MDRD) Non-Af BUN/Creatinine Ratio Glucose Lactic Acid 5.4 H* Calcium Phosphorus 3.6 Magnesium 2.0 Ferritin 92895 H Total Bilirubin AST ALT Alkaline Phosphatase Lactate Dehydrogenase 357 H Troponin I C-React Prot Ext Range 293.00 H Total Protein Albumin Globulin Albumin/Globulin Ratio Procalcitonin Urine Color Urine Clarity Urine pH Ur Specific [place] Urine Protein Urine Glucose (UA) Urine Ketones Urine Occult Blood Urine Nitrite Urine Bilirubin Urine Urobilinogen Ur Leukocyte Esterase Urine RBC Urine WBC Ur Squamous Epith Cells Urine Bacteria Hyaline Casts Urine Mucus COVID-19 (YADY) Cancelled MRSA (PCR) Blood Type Antibody Screen Crossmatch 07/22/19 07/22/19 07/22/19 18:14 21:55 21:55 WBC RBC Hgb Hct MCV MCH MCHC RDW Std Deviation RDW Coeff of Nevin Plt Count MPV Immature Gran % (Auto) Neut % (Auto) Lymph % (Auto) [place] % (Auto) Eos % (Auto) Baso % (Auto) Absolute Neuts (auto) Absolute Lymphs (auto) Neutrophils % (Manual) Band Neutrophils % Lymphocytes % (Manual) Monocytes % (Manual) Nucleated RBC % Differential Comment Diff Path Review Platelet Estimate PT INR APTT 50.4 H D-Dimer Quant (PE/DVT) 2.67 H* pH 7.59 H Bicarbonate Actual 26.4 H POC Total CO2 27 Base Excess 5 H O2 Saturation 99 ABG pCO2 27.4 L ABG pO2 134 H Sodium Potassium Chloride Carbon Dioxide Anion Gap BUN Creatinine Estim Creat Clear Calc Est GFR (MDRD) Af Amer Est GFR (MDRD) Non-Af BUN/Creatinine Ratio Glucose Lactic Acid Calcium Phosphorus Magnesium Ferritin Total Bilirubin AST ALT Alkaline Phosphatase Lactate Dehydrogenase Troponin I C-React Prot Ext Range Total Protein Albumin Globulin Albumin/Globulin Ratio Procalcitonin Cancelled Urine Color Urine Clarity Urine pH Ur Specific [place] Urine Protein Urine Glucose (UA) Urine Ketones Urine Occult Blood Urine Nitrite Urine Bilirubin Urine Urobilinogen Ur Leukocyte Esterase Urine RBC Urine WBC Ur Squamous Epith Cells Urine Bacteria Hyaline Casts Urine Mucus COVID-19 (YADY) MRSA (PCR) Blood Type Antibody Screen Crossmatch 07/22/19 07/22/19 07/22/19 21:55 22:30 22:40 WBC RBC Hgb Hct MCV MCH MCHC RDW Std Deviation RDW Coeff of Nevin Plt Count MPV Immature Gran % (Auto) Neut % (Auto) Lymph % (Auto) [place] % (Auto) Eos % (Auto) Baso % (Auto) Absolute Neuts (auto) Absolute Lymphs (auto) Neutrophils % (Manual) Band Neutrophils % Lymphocytes % (Manual) Monocytes % (Manual) Nucleated RBC % Differential Comment Diff Path Review Platelet Estimate PT INR APTT D-Dimer Quant (PE/DVT) pH Bicarbonate Actual POC Total CO2 Base Excess O2 Saturation ABG pCO2 ABG pO2 Sodium Potassium Chloride Carbon Dioxide Anion Gap BUN Creatinine Estim Creat Clear Calc Est GFR (MDRD) Af Amer Est GFR (MDRD) Non-Af BUN/Creatinine Ratio Glucose Lactic Acid 2.2 H* Calcium Phosphorus Magnesium Ferritin Total Bilirubin AST ALT Alkaline Phosphatase Lactate Dehydrogenase Troponin I C-React Prot Ext Range Total Protein Albumin Globulin Albumin/Globulin Ratio Procalcitonin Urine Color [place] Urine Clarity Sl. Cloudy Urine pH 5.0 Ur Specific [place] 1.015 Urine Protein 30 H Urine Glucose (UA) Normal Urine Ketones 5 H Urine Occult Blood 10 H Urine Nitrite Negative Urine Bilirubin 3 H Urine Urobilinogen 1 H Ur Leukocyte Esterase 25 H Urine RBC 0 SEEN Urine WBC 0-5 SEEN Ur Squamous Epith Cells 0 SEEN Urine Bacteria 0 SEEN Hyaline Casts 0-5 SEEN Urine Mucus 0 SEEN COVID-19 (YADY) MRSA (PCR) Negative Blood Type Antibody Screen Crossmatch 07/22/19 07/23/19 07/23/19 23:40 01:25 02:45 WBC 0.5 L* RBC 2.20 L Hgb 6.6 L Hct 20.5 L MCV 93.2 MCH 30.0 MCHC 32.2 RDW Std Deviation 44.9 H RDW Coeff of Nevin 13.4 Plt Count 31 L* MPV 8.7 Immature Gran % (Auto) [employer]LLER OPERATOR Neut % (Auto) STEM ROLLER OPERATOR Lymph % (Auto) STEM ROLLER OPERATOR [place] % (Auto) STEM ROLLER OPERATOR Eos % (Auto) STEM ROLLER OPERATOR Baso % (Auto) STEM ROLLER OPERATOR Absolute Neuts (auto) 0.3 L Absolute Lymphs (auto) 0.19 L Neutrophils % (Manual) 42 L Band Neutrophils % 14 H Lymphocytes % (Manual) 38 Monocytes % (Manual) 6 Nucleated RBC % STEM ROLLER OPERATOR Differential Comment Diff Path Review May foll Platelet Estimate MKD DEC PT 43.9 H INR 4.7 H* APTT D-Dimer Quant (PE/DVT) 2.47 H* pH Bicarbonate Actual POC Total CO2 Base Excess O2 Saturation ABG pCO2 ABG pO2 Sodium Potassium Chloride Carbon Dioxide Anion Gap BUN Creatinine Estim Creat Clear Calc Est GFR (MDRD) Af Amer Est GFR (MDRD) Non-Af BUN/Creatinine Ratio Glucose Lactic Acid Calcium Phosphorus Magnesium Ferritin Total Bilirubin AST ALT Alkaline Phosphatase Lactate Dehydrogenase Troponin I C-React Prot Ext Range Total Protein Albumin Globulin Albumin/Globulin Ratio Procalcitonin 5.69 H Urine Color Urine Clarity Urine pH Ur Specific [place] Urine Protein Urine Glucose (UA) Urine Ketones Urine Occult Blood Urine Nitrite Urine Bilirubin Urine Urobilinogen Ur Leukocyte Esterase Urine RBC Urine WBC Ur Squamous Epith Cells Urine Bacteria Hyaline Casts Urine Mucus COVID-19 (YADY) MRSA (PCR) Blood Type Antibody Screen Crossmatch 07/23/19 07/23/19 02:45 02:45 WBC RBC Hgb Hct MCV MCH MCHC RDW Std Deviation RDW Coeff of Nevin Plt Count MPV Immature Gran % (Auto) Neut % (Auto) Lymph % (Auto) [place] % (Auto) Eos % (Auto) Baso % (Auto) Absolute Neuts (auto) Absolute Lymphs (auto) Neutrophils % (Manual) Band Neutrophils % Lymphocytes % (Manual) Monocytes % (Manual) Nucleated RBC % Differential Comment Diff Path Review Platelet Estimate PT INR APTT D-Dimer Quant (PE/DVT) pH Bicarbonate Actual POC Total CO2 Base Excess O2 Saturation ABG pCO2 ABG pO2 Sodium 143 Potassium 4.0 Chloride 105 Carbon Dioxide 27.0 Anion Gap 11 BUN 58 H Creatinine 1.69 H Estim Creat Clear Calc 42.13 Est GFR (MDRD) Af Amer 52 L Est GFR (MDRD) Non-Af 43 L BUN/Creatinine Ratio 34.3 H Glucose 115 H Lactic Acid Calcium 9.0 Phosphorus Magnesium Ferritin Total Bilirubin 1.90 H AST 53 H ALT 83 H Alkaline Phosphatase 339 H Lactate Dehydrogenase Troponin I C-React Prot Ext Range Total Protein 5.3 L Albumin 1.3 L Globulin 4.0 Albumin/Globulin Ratio 0.3 L Procalcitonin Urine Color Urine Clarity Urine pH Ur Specific [place] Urine Protein Urine Glucose (UA) Urine Ketones Urine Occult Blood Urine Nitrite Urine Bilirubin Urine Urobilinogen Ur Leukocyte Esterase Urine RBC Urine WBC Ur Squamous Epith Cells Urine Bacteria Hyaline Casts Urine Mucus COVID-19 (YADY) MRSA (PCR) Blood Type O POSITIVE Antibody Screen NEGATIVE Crossmatch See Detail Microbiology 07/23/19 01:20 Stool C. difficile DNA Amplification - Final 07/22/19 22:10 Mucosa - Nasopharyngeal Respiratory Panel (PCR) - Preliminary 07/22/19 22:30 Urine Catheter - Catheter Legionella Antigen - Final 07/22/19 22:30 Urine Catheter - Catheter Streptococcus pneumoniae Antigen (M - Final 07/22/19 18:00 Mucosa - Nasopharyngeal Coronavirus COVID-19 PCR - Final Clinical Impression(s) from Imaging Studies Chest X-Ray 07/22/19 18:30 IMPRESSION: Findings suspicious for viral pneumonia possibly due to covid 19 infection. Clinical correlation recommended Electronically Signed: Dexter Norman MD at 18:50 EDT , Service support , Current Medications Acetaminophen (Tylenol) 650 mg PO Q6H PRN PRN PRN Reason: Pain Score 1-10/Temp > 100.7 F Al Hydroxide/Mg Hydroxide (Mylanta Ii) 30 ml PO Q6H PRN PRN PRN Reason: Gastric Burning Albuterol Sulfate (Ventolin Aerosols) 2.5 mg INHALATION Q2H PRN PRN PRN Reason: Dyspnea, wheezing Albuterol/Ipratropium (Duoneb) 3 ml INHALATION Q4HWA.RT [facility] Last Admin: 07/22/19 22:15 Dose: Not Given Documented by: Atorvastatin Calcium (Lipitor) 10 mg PO QHS [facility] Last Admin: 07/22/19 21:42 Dose: Not Given Documented by: Dextrose (D50w Syringe) 0 gm IV X1 PRN; Protocol PRN Reason: Hypoglycemia Famotidine (Pepcid) 20 mg PO BID [facility] Last Admin: 07/22/19 21:42 Dose: Not Given Documented by: Glucagon () 1 mg IM .X1 PRN PRN Reason: Hypoglycemia Guaifenesin (Robitussin) 10 ml PO Q4H PRN PRN PRN Reason: COUGH Heparin Sodium (Porcine) (Heparin Na) 0 unit IV UD PRN; Protocol Hydralazine HCl (Apresoline Iv) 10 mg IV Q4H PRN PRN PRN Reason: SBP > 160 Sodium Chloride () 1,000 mls @ 100 mls/hr IV .Q10H [facility] Last Admin: 07/23/19 04:54 Dose: 100 mls/hr Documented by: Vancomycin IV Pharmacy to Dose (1 ea/ Sodium Chloride) 500 mls @ 250 mls/hr IV PRN PRN; Protocol PRN Reason: Rx to Dose Piperacillin Sod/Tazobactam (Sod 3.375 gm/ Sodium Chloride) 50 mls @ 12.5 mls/hr IV Q8@0200,1000,1800 [facility] Last Infusion: 07/23/19 05:50 Dose: Infused Documented by: Sodium Chloride () 250 mls @ 15 mls/hr IV .[id number] PRN PRN Reason: Saline Flush Last Infusion: 07/23/19 05:50 Dose: 15 mls/hr Documented by: Sodium Chloride () 250 mls @ 15 mls/hr IV .[id number] PRN PRN Reason: Additional IVPB Infusion Vancomycin HCl 750 mg/ Sodium (Chloride) 265 mls @ 250 mls/hr IV Q12H [place] Magnesium Hydroxide (Milk Of Magnesia) 30 ml PO DAILY PRN PRN PRN Reason: Constipation Melatonin (Melatonin) 3 mg PO QHS PRN PRN PRN Reason: INSOMNIA Morphine Sulfate () 4 mg IV Q3H PRN PRN PRN Reason: Pain Score 6-10/10 Nitroglycerin (Nitrostat) 0.4 mg SUBLINGUAL Q5M PRN PRN Reason: CARDIAC/CHEST PAIN Ondansetron HCl (Zofran) 4 mg IV Q8H PRN PRN PRN Reason: NAUSEA/VOMITING Oxycodone HCl (Oxyir) 10 mg PO Q4H PRN PRN PRN Reason: Pain Score 4-5/10 Prochlorperazine Edisylate (Compazine Iv) 5 mg IV Q4H PRN PRN PRN Reason: Breakthrough Nausea/Vomiting Psyllium Hydrophilic Mucilloid (Metamucil) 1 packet PO DAILY PRN PRN PRN Reason: Constipation Senna/Docusate Sodium (Senokot-S, Elisabeth-Colace) 2 tablet PO BID PRN PRN PRN Reason: Constipation Sodium Chloride () 10 - 40 ml IV UD PRN PRN Reason: SALINE FLUSH Last Admin: 07/22/19 21:57 Dose: 20 ml Documented by: Throat Lozenges (Cepacol Sore Throat Lozenge) 1 lozenge MUCOUS MEM Q2H PRN PRN PRN Reason: SORE THROAT Assessment/Plan Active and Suspected Problems (Last Reviewed 05/23/19 @ 15:54 by Monica Arriaga NP-C) Severe sepsis (Acute) Respiratory failure with hypoxia (Acute) Pneumonia (Acute) Suspected COVID-19 virus infection (Acute) Pancytopenia (Acute) RECOMMENDATIONS: 1. Obtain CT abdomen/pelvis. 2. Continue empiric antimicrobials, pending infectious work-up. Await infectious disease consultation. 3. Check fibrinogen level. 4. Transfusion of blood products as ordered. 5. Wean FiO2 to maintain oxygen saturations at or above 90%. 6. Hold systemic anticoagulation. 7. Check lower extremity Doppler studies. 8. Start Granix. IMPRESSIONS: 1. Severe sepsis Clinical concern for possible underlying pulmonary infectious process versus intra-abdominal pathology. The patient has been adequately volume resuscitated. Therefore, I would discontinue supplemental IV fluids on a continuous basis. Will obtain CT abdomen/pelvis. COVID testing was negative. Infectious diseases consultation is pending. In the interim, broad-spectrum antimicrobials will be continued, pending finalized infectious work-up. 2. Acute hypoxemic respiratory failure Again, likely related to underlying pulmonary infectious process coupled with recent diagnosis of pulmonary embolism. However, the patient is not currently a candidate for systemic anticoagulation, given his lower GI bleeding noted overnight. Wean supplemental oxygen as tolerated. 3. Recent diagnosis of pulmonary embolism The patient was diagnosed with pulmonary emboli on July 16. He was subsequently placed on Eliquis, which was held on admission to the ICU. The patient was initially placed on a continuous heparin infusion, which was later discontinued after he developed lower GI bleeding. 4. History of metastatic non-small cell carcinoma Prognosis is overall poor. The patient was just recently started on a combination of chemo and immunotherapy. If the patient does not begin to stabilize clinically over the next 24 hours, may need to consider hospice referral. 5. Pancytopenia/coagulopathy Likely secondary to recent chemotherapy initiation coupled with possible DIC. Will check fibrinogen level. Plan to transfuse blood products and recheck blood counts afterwards. Granix to be started as well. 6. Acute kidney injury Likely secondary to ATN in the setting of #1. Continue to monitor urine output. No current indication for renal replacement therapy. 7. Abdominal pain/nausea/vomiting Undifferentiated etiology. Possibly secondary to gastroenteritis due to immunotherapy. Will obtain CT abdomen/pelvis for further evaluation. 8. History of alcohol and tobacco dependency/obstructive sleep apnea/hypertension/hyperlipidemia Complicates care, management, recovery and prognosis. Continue home medications as indicated. This note was generated with [employer] software. It may contain incorrect words, spelling, and punctuation that were not noted in checking the note before signing. Inpatient E&M: 75536 Init Hosp L3
--- NOTE | 2019-07-23 07:30 | CT_ITS ---
STUDY: CT ABDOMEN AND PELVIS WITH CONTRAST REASON FOR EXAM: Male, 69 years old. SEVERE SEPSIS WITH N/V. LUNG CANCER WITH RECENT CHEMO -- SURG-LEFT INGUINAL HERNIA,TWISTED BOWEL RADIATION DOSAGE (If Supplied By Facility): CTDIvol = ( 14.34 ) mGy, DLP = ( 998.52 ) mGycm TECHNIQUE: Transaxial images were obtained from the dome of the diaphragm to the symphysis pubis without oral contrast. Oral and amp; IV Gastrografin and amp; 100mL Isovue-300 was administered. Sagittal and coronal images were reconstructed. Individualized dose optimization techniques were used for this CT. COMPARISON: Ultrasound earlier today FINDINGS: Some bibasilar atelectasis. The visualized portions of the heart are within normal limits. 3 cm oval mass of decreased attenuation within the subcapsular posterior segment the right lobe of the liver and correlation with liver mass protocol CT or MRI is recommended. Moderate intrahepatic and extrahepatic biliary ductal dilatation to the level of the ampulla and correlation with MRCP or ERCP is recommended. Normal spleen. Normal pancreas. Normal bilateral adrenal glands. Normal right kidney. Normal left kidney. Normal visualized stomach. The majority of the small bowel is mildly dilated and fluid-filled without a definite transition point to suggest obstruction possibly consistent with gastroenteritis. Normal colon. There is non-visualization of the appendix. There is diffuse atherosclerotic calcification of the abdominal aorta, without a demonstrated aneurysm. Normal inferior vena cava. Normal retroperitoneum. Hernández catheter within the decompressed bladder. Normal abdominal wall. 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/Abdomen/Pelvis WITH Contrast IMPRESSION: 1. 3 cm mass of the subcapsular posterior segment the right lobe of the liver and correlation with liver mass protocol CT or MRI is recommended. 2. Moderate extrahepatic and intrahepatic biliary ductal dilatation and correlation with MRCP or ERCP is recommended. 3. Mildly dilated fluid-filled small bowel without a definite transition point possibly consistent with gastroenteritis. 4. Hernández catheter. Electronically Signed: Kevin Light MD at 10:47 EDT Tel , Service support ,
--- NOTE | 2019-07-23 07:31 | PCM.PN.HOSP ---
Patient Problems: Active and Suspected Problems (Last Reviewed 05/23/19 @ 15:54 by Monica Arriaga NP-C) Severe sepsis (Acute) Respiratory failure with hypoxia (Acute) Pneumonia (Acute) Suspected COVID-19 virus infection (Acute) Pancytopenia (Acute) Reason for Visit: Follow-up acute respiratory distress Subjective: Patient is a 69-year-old gentleman with history of non-small cell lung CA currently on chemo brought to the emergency department with progressive shortness of breath Objective: GENERAL: cooperative HEENT: Atraumatic; EYES; Anicteric, Normal Conjunctiva NECK; supple, normal thyroid, RESPIRATORY: Diminished to auscultation CARDIOVASCULAR: Regular S1 S2, GI: soft, normoactive bowel sounds, : No Renal angle tenderness; EXTREMITIES: No edema, no clubbing, MUSCULOSKELETAL: no muscle waisting NEURO: Awake; no lateralizing signs. SKIN: No Rash PSYCH; Flat affect Vitals/I&O's: Vital Signs Temp Pulse Resp BP Pulse Ox 99.4 F H 93 19 H 109/59 L 100 07/23/19 06:07 07/23/19 06:07 07/23/19 06:07 07/23/19 06:07 07/23/19 06:07 Oxygen Flow Rate (L/min) 6 Oxygen Delivery Method Bi-pap Weight: 72.8 kg Body Mass Index (BMI) 20.9 Intake and Output for Last 24 Hours 07/21/19 07/22/19 07/23/19 23:59 23:59 23:59 Intake Total 2550 / 2750 1196.70 / 1196.70 Output Total 400 / 400 Balance 2550 / 2600 796.70 / 796.70 Microbiology Past 72 Hours 07/22/19 22:10 Mucosa - Nasopharyngeal Respiratory Panel (PCR) - Final 07/23/19 01:20 Stool C. difficile DNA Amplification - Final 07/22/19 22:30 Urine Catheter - Catheter Legionella Antigen - Final 07/22/19 22:30 Urine Catheter - Catheter Streptococcus pneumoniae Antigen (M - Final 07/22/19 18:00 Mucosa - Nasopharyngeal Coronavirus COVID-19 PCR - Final Laboratory Results 07/22/19 17:55: WBC 0.5 L*, RBC 2.72 L, Hgb 8.1 L, Hct 26.0 L, MCV 95.6 H, MCH 29.8, MCHC 31.2 L, RDW Std Deviation 46.3 H, RDW Coeff of Nevin 13.4, Plt Count 42 L*, MPV 9.6, Immature Gran % (Auto) 1.900 H, Neut % (Auto) 45.2 L, Lymph % (Auto) 34.0, [place] % (Auto) 17.0 H, Eos % (Auto) 1.9, Baso % (Auto) 0.0, Absolute Neuts (auto) 0.2 L, Absolute Lymphs (auto) 0.18 L, Nucleated RBC % 0, Differential Comment SCANNED, Diff Path Review July, Platelet Estimate MKD 07/22/19 17:55: PT 37.1 H, INR 3.8 H*, APTT 52.3 H 07/22/19 17:55: Sodium 141, Potassium 3.9, Chloride 105, Carbon Dioxide 25.0, Anion Gap 11, BUN 42 H, Creatinine 1.25, Estim Creat Clear Calc 55.77, Est GFR (MDRD) Af Amer 74, Est GFR (MDRD) Non-Af 61, BUN/Creatinine Ratio 33.6 H, Glucose 138 H, Calcium 10.0, Total Bilirubin 2.50 H, AST 71 H, ALT 109 H, Alkaline Phosphatase 475 H, Troponin I < 0.015, Total Protein 6.5, Albumin 1.7 L, Globulin 4.8 H, Albumin/Globulin Ratio 0.4 L 07/22/19 17:55: Lactic Acid 5.4 H* 07/22/19 17:55: Phosphorus 3.6, Magnesium 2.0, Ferritin 27970 H, Lactate Dehydrogenase 357 H, C-React Prot Ext Range 293.00 H 07/22/19 18:00: COVID-19 (YADY) Cancelled 07/22/19 18:14: pH 7.59 H, Bicarbonate Actual 26.4 H, POC Total CO2 27, Base Excess 5 H, O2 Saturation 99, ABG pCO2 27.4 L, ABG pO2 134 H 07/22/19 21:55: APTT 50.4 H, D-Dimer Quant (PE/DVT) 2.67 H* 07/22/19 21:55: Procalcitonin Cancelled 07/22/19 21:55: MRSA (PCR) Negative 07/22/19 22:30: Urine Color Yadira, Urine Clarity Sl. Cloudy, Urine pH 5.0, Ur Specific Terral 1.015, Urine Protein 30 H, Urine Glucose (UA) Normal, Urine Ketones 5 H, Urine Occult Blood 10 H, Urine Nitrite Negative, Urine Bilirubin 3 H, Urine Urobilinogen 1 H, Ur Leukocyte Esterase 25 H, Urine RBC 0 SEEN, Urine WBC 0-5 SEEN, Ur Squamous Epith Cells 0 SEEN, Urine Bacteria 0 SEEN, Hyaline Casts 0-5 SEEN, Urine Mucus 0 SEEN 07/22/19 22:40: Lactic Acid 2.2 H* 07/22/19 23:40: Procalcitonin 5.69 H 07/23/19 01:25: WBC 0.5 L*, RBC 2.20 L, Hgb 6.6 L, Hct 20.5 L, MCV 93.2, MCH 30.0, MCHC 32.2, RDW Std Deviation 44.9 H, RDW Coeff of Nevin 13.4, Plt Count 31 L*, MPV 8.7, Immature Gran % (Auto) FUNDRAISING SPECIALIST, Neut % (Auto) FUNDRAISING SPECIALIST, Lymph % (Auto) FUNDRAISING SPECIALIST, [place] % (Auto) FUNDRAISING SPECIALIST, Eos % (Auto) FUNDRAISING SPECIALIST, Baso % (Auto) FUNDRAISING SPECIALIST, Absolute Neuts (auto) 0.3 L, Absolute Lymphs (auto) 0.19 L, Neutrophils % (Manual) 42 L, Band Neutrophils % 14 H, Lymphocytes % (Manual) 38, Monocytes % (Manual) 6, Nucleated RBC % FUNDRAISING SPECIALIST, Diff Path Review July, Platelet Estimate MKD 07/23/19 02:45: PT 43.9 H, INR 4.7 H*, D-Dimer Quant (PE/DVT) 2.47 H* 07/23/19 02:45: Sodium 143, Potassium 4.0, Chloride 105, Carbon Dioxide 27.0, Anion Gap 11, BUN 58 H, Creatinine 1.69 H, Estim Creat Clear Calc 42.13, Est GFR (MDRD) Af Amer 52 L, Est GFR (MDRD) Non-Af 43 L, BUN/Creatinine Ratio 34.3 H, Glucose 115 H, Calcium 9.0, Total Bilirubin 1.90 H, AST 53 H, ALT 83 H, Alkaline Phosphatase 339 H, Total Protein 5.3 L, Albumin 1.3 L, Globulin 4.0, Albumin/Globulin Ratio 0.3 L 07/23/19 02:45: Blood Type O POSITIVE, Antibody Screen NEGATIVE, Crossmatch See Detail 07/23/19 04:05: Hep Bs Antigen Pending, Hep Bs Antibody Pending, Hepatitis C Antibody Pending Current Medications Acetaminophen (Tylenol) 650 mg PO Q6H PRN PRN PRN Reason: Pain Score 1-10/Temp > 100.7 F Al Hydroxide/Mg Hydroxide (Mylanta Ii) 30 ml PO Q6H PRN PRN PRN Reason: Gastric Burning Albuterol Sulfate (Ventolin Aerosols) 2.5 mg INHALATION Q2H PRN PRN PRN Reason: Dyspnea, wheezing Albuterol/Ipratropium (Duoneb) 3 ml INHALATION Q4HWA.RT [facility] Last Admin: 07/22/19 22:15 Dose: Not Given Documented by: Dextrose (D50w Syringe) 0 gm IV X1 PRN; Protocol PRN Reason: Hypoglycemia Famotidine (Pepcid) 20 mg PO BID [facility] Last Admin: 07/22/19 21:42 Dose: Not Given Documented by: Glucagon () 1 mg IM .X1 PRN PRN Reason: Hypoglycemia Guaifenesin (Robitussin) 10 ml PO Q4H PRN PRN PRN Reason: COUGH Heparin Sodium (Porcine) (Heparin Na) 0 unit IV UD PRN; Protocol Hydralazine HCl (Apresoline Iv) 10 mg IV Q4H PRN PRN PRN Reason: SBP > 160 Sodium Chloride () 1,000 mls @ 100 mls/hr IV .Q10H [facility] Last Admin: 07/23/19 04:54 Dose: 100 mls/hr Documented by: Vancomycin IV Pharmacy to Dose (1 ea/ Sodium Chloride) 500 mls @ 250 mls/hr IV PRN PRN; Protocol PRN Reason: Rx to Dose Piperacillin Sod/Tazobactam (Sod 3.375 gm/ Sodium Chloride) 50 mls @ 12.5 mls/hr IV Q8@0200,1000,1800 [facility] Last Infusion: 07/23/19 05:50 Dose: Infused Documented by: Sodium Chloride () 250 mls @ 15 mls/hr IV .[id number] PRN PRN Reason: Saline Flush Last Infusion: 07/23/19 05:50 Dose: 15 mls/hr Documented by: Sodium Chloride () 250 mls @ 15 mls/hr IV .[id number] PRN PRN Reason: Additional IVPB Infusion Vancomycin HCl 750 mg/ Sodium (Chloride) 265 mls @ 250 mls/hr IV Q12H [facility] Magnesium Hydroxide (Milk Of Magnesia) 30 ml PO DAILY PRN PRN PRN Reason: Constipation Nitroglycerin (Nitrostat) 0.4 mg SUBLINGUAL Q5M PRN PRN Reason: CARDIAC/CHEST PAIN Ondansetron HCl (Zofran) 4 mg IV Q8H PRN PRN PRN Reason: NAUSEA/VOMITING Oxycodone HCl (Oxyir) 10 mg PO Q4H PRN PRN PRN Reason: Pain Score 4-5/10 Prochlorperazine Edisylate (Compazine Iv) 5 mg IV Q4H PRN PRN PRN Reason: Breakthrough Nausea/Vomiting Psyllium Hydrophilic Mucilloid (Metamucil) 1 packet PO DAILY PRN PRN PRN Reason: Constipation Senna/Docusate Sodium (Senokot-S, Elisabeth-Colace) 2 tablet PO BID PRN PRN PRN Reason: Constipation Sodium Chloride () 10 - 40 ml IV UD PRN PRN Reason: SALINE FLUSH Last Admin: 07/22/19 21:57 Dose: 20 ml Documented by: Throat Lozenges (Cepacol Sore Throat Lozenge) 1 lozenge MUCOUS MEM Q2H PRN PRN PRN Reason: SORE THROAT STROKE Vital Signs/Narrative: Vital Signs Temp Pulse Resp BP BP Pulse Ox 07/23/19 06:07 99.4 F H 93 19 H 109/59 L 100 07/23/19 06:04 99.8 F H 101 H 20 H 110/58 L 100 07/23/19 05:07 99.9 F H 100 27 H 114/52 L 100 07/23/19 05:00 99.9 F H 104 H 17 95/58 L 100 07/23/19 04:52 100.0 F H 99 10 L 100/59 L 100 07/23/19 04:00 100.4 F H 97 18 102/54 L 99 Medical Necessity - Tobacco Use Smoking Status: Former smoker - Patient quit cigarette tobacco usage in 2012 with prior to this 2 pack/day since he had been a teenager. Tobacco Use: Non-smoker Assessment/Plan All Active Problems (Last Reviewed 05/23/19 @ 15:54 by WOODY Webb) Severe sepsis (Acute) Respiratory failure with hypoxia (Acute) Pneumonia (Acute) Suspected COVID-19 virus infection (Acute) Pancytopenia (Acute) Supraclavicular lymphadenopathy (Acute) Esophageal lesion (Acute) Multiple lung nodules on CT (Acute) Right lower lobe pulmonary nodule (Acute) History of carpal tunnel surgery (Resolved) History of inguinal hernia repair (Resolved) History of appendectomy (Resolved) Patient is a 69-year-old gentleman with history of non-small cell lung CA currently on chemo brought to the emergency department with progressive shortness of breath 1. Severe sepsis ?imaging studies obtained on admission demonstrated features suspicious for viral pneumonia possibly COVID 19. Admitted to intensive care unit patient placed on supplemental oxygen as well as broad-spectrum antibiotic therapy with Zosyn and vancomycin. Consult was placed to infectious disease 2. Acute hypoxic respiratory failure ?Secondary to above patient is on supplemental oxygen 3. Suspected viral pneumonia rule out COVID 19 infection ?Management as discussed above 4. Acute kidney injury ?On IV fluids. Patient kidney function actually did worsen following his admission 5. Recent diagnosis of acute pulmonary embolism ?Patient was started on Eliquis apparently did develop epistaxis leading to cauterization 6. Abnormal abdominal ultrasound. ?Ultrasound demonstrated Gallbladder sludge with a positive sonographic Ramsey sign worrisome for acute or chronic cholecystitis.. Patient was also noted to have Severe extrahepatic biliary ductal dilatation worrisome for biliary obstruction and correlation with MRCP or ERCP is recommended.. Plan is to consult general surgery once COVID 19 infection has been ruled out 7. Non-small cell lung CA ?Patient has been managed by Dr. Cervantes as outpatient 8. Pancytopenia ?Secondary to patient malignancy. Patient currently being transfused 1 unit PRBC as well as platelet transfusion 9. COPD ?aerosol treatment as needed 10. Essential hypertension ~ blood pressure controlled, home medications continued with dose adjustment as needed 11. Dyslipidemia ~patient is on statin therapy, continued at home dose Clinical Impression(s) from Imaging Studies Chest X-Ray 07/22/19 18:30 IMPRESSION: Findings suspicious for viral pneumonia possibly due to covid 19 infection. Clinical correlation recommended Electronically Signed: Dexter Norman MD at 18:50 EDT , Service support , Abdomen Ultrasound 07/23/19 00:06 IMPRESSION: 1. Gallbladder sludge with a positive sonographic Ramsey sign worrisome for acute or chronic cholecystitis. Clinical correlation is recommended. 2. Severe extrahepatic biliary ductal dilatation worrisome for biliary obstruction and correlation with MRCP or ERCP is recommended. 3. 2 x 4 cm hyperechoic mass within the right lobe of liver correlation with liver mass protocol CT is recommended. Electronically Signed: Kevin Light MD at 8:26 EDT Tel , Service support , Abdomen/Pelvis CT 07/23/19 07:30 IMPRESSION: 1. 3 cm mass of the subcapsular posterior segment the right lobe of the liver and correlation with liver mass protocol CT or MRI is recommended. 2. Moderate extrahepatic and intrahepatic biliary ductal dilatation and correlation with MRCP or ERCP is recommended. 3. Mildly dilated fluid-filled small bowel without a definite transition point possibly consistent with gastroenteritis. 4. Hernández catheter. Electronically Signed: Kevin Light MD at 10:47 EDT Tel , Service support , Active Medications Acetaminophen (Tylenol) 650 mg PO Q6H PRN PRN PRN Reason: Pain Score 1-10/Temp > 100.7 F Al Hydroxide/Mg Hydroxide (Mylanta Ii) 30 ml PO Q6H PRN PRN PRN Reason: Gastric Burning Albuterol Sulfate (Ventolin Aerosols) 2.5 mg INHALATION Q2H PRN PRN PRN Reason: Dyspnea, wheezing Albuterol/Ipratropium (Duoneb) 3 ml INHALATION Q4HWA.RT [facility] Last Admin: 07/22/19 22:15 Dose: Not Given Documented by: Dextrose (D50w Syringe) 0 gm IV X1 PRN; Protocol PRN Reason: Hypoglycemia Glucagon () 1 mg IM .X1 PRN PRN Reason: Hypoglycemia Guaifenesin (Robitussin) 10 ml PO Q4H PRN PRN PRN Reason: COUGH Heparin Sodium (Porcine) (Heparin Na) 0 unit IV UD PRN; Protocol Hydralazine HCl (Apresoline Iv) 10 mg IV Q4H PRN PRN PRN Reason: SBP > 160 Sodium Chloride () 1,000 mls @ 100 mls/hr IV .Q10H [facility] Last Infusion: 07/23/19 08:00 Dose: 0 mls/hr Documented by: Vancomycin IV Pharmacy to Dose (1 ea/ Sodium Chloride) 500 mls @ 250 mls/hr IV PRN PRN; Protocol PRN Reason: Rx to Dose Piperacillin Sod/Tazobactam (Sod 3.375 gm/ Sodium Chloride) 50 mls @ 12.5 mls/hr IV Q8@0200,1000,1800 [facility] Last Admin: 07/23/19 09:33 Dose: 12.5 mls/hr Documented by: Sodium Chloride () 250 mls @ 15 mls/hr IV .[id number] PRN PRN Reason: Saline Flush Last Infusion: 07/23/19 08:00 Dose: 0 mls/hr Documented by: Sodium Chloride () 250 mls @ 15 mls/hr IV .[id number] PRN PRN Reason: Additional IVPB Infusion Vancomycin HCl 750 mg/ Sodium (Chloride) 265 mls @ 250 mls/hr IV Q12H [facility] Last Infusion: 07/23/19 09:18 Dose: Infused Documented by: Pantoprazole Sodium 40 mg/ (Sodium Chloride) 110 mls @ 330 mls/hr IV Q12 [facility] Magnesium Hydroxide (Milk Of Magnesia) 30 ml PO DAILY PRN PRN PRN Reason: Constipation Nitroglycerin (Nitrostat) 0.4 mg SUBLINGUAL Q5M PRN PRN Reason: CARDIAC/CHEST PAIN Ondansetron HCl (Zofran) 4 mg IV Q8H PRN PRN PRN Reason: NAUSEA/VOMITING Oxycodone HCl (Oxyir) 10 mg PO Q4H PRN PRN PRN Reason: Pain Score 4-5/10 Prochlorperazine Edisylate (Compazine Iv) 5 mg IV Q4H PRN PRN PRN Reason: Breakthrough Nausea/Vomiting Psyllium Hydrophilic Mucilloid (Metamucil) 1 packet PO DAILY PRN PRN PRN Reason: Constipation Senna/Docusate Sodium (Senokot-S, Elisabeth-Colace) 2 tablet PO BID PRN PRN PRN Reason: Constipation Sodium Chloride () 10 - 40 ml IV UD PRN PRN Reason: SALINE FLUSH Last Admin: 07/22/19 21:57 Dose: 20 ml Documented by: Throat Lozenges (Cepacol Sore Throat Lozenge) 1 lozenge MUCOUS MEM Q2H PRN PRN PRN Reason: SORE THROAT Inpatient E&M: 50176 Subs Hosp L3
[2019-07-23 08:30] LABS: Hepatitis B Surface Antibody Non-Reactive; Hepatitis B Surface Antigen Non-Reactive (Nonreactive); Hepatitis C Antibody Non-Reactive (Nonreactive)
[2019-07-23 09:00] LABS: Blood Gas Specimen Type ART
[2019-07-23 09:01] LABS: O2 Delivery Device Nasal Can; SITE R BRACHIAL
[2019-07-23] MEDS: Famotidine 20 MG Tablet PO (09:33)
[2019-07-23 10:10] LABS: Fibrinogen 690 mg/dl (203-444)
--- NOTE | 2019-07-23 10:54 | CASEMGMT ---
RN CM Assessment Note Presentation: Severe sepsis, respiratory failure. Hx of metastatic carcinoma Intro role of CM and purpose of RN CM assessment to patient's via phone. Pt is in ICU, on high flow oxygen and not able to participate in assessment via phone. is agreeable to speak with RN CM. Demographics, PCP and Pharmacy verified. Per , pt has been declining at home. She assists with all ADL care needs. States patient has mostly been bed confined due to pain issues. Pt able to walk with cane, but requires assist with showering, dressing. - states patient was ordered pain patch and long acting morphine, but it was not covered by the insurance. RN CM offered to look into this for her and she is agreeable. Call to [facility] pharmacy. Long acting morphine and Fentanyl patch were ordered by Dr. Cervantes, but required a prior authorization. Per pharmacist, a fax was sent to Dr. Cervantes's office on 07/18/2019. -Call to Dr. Cervantes's office. Information given to hospice patient care secretary who will forward to nurse re: has prior authorization been completed and request to call RN CM back if this has been done already. - states they had a meeting scheduled with Dr. Radha Moon on Sunday re: possible Hospice. states she would like physician to speak with her re: Hospice care and if he is agreeable, she would like to set up a meeting. CARLOTA Wyatt updated, and Dr. Galdamez updated one piece expansion maker hand with and will speak with pt. PCP: Dr. Johnathon Moon Specialists: Dr. Cervantes Preferred Pharmacy: [facility] Insurance: [facility] Prescription Benefit: yes LNOK : Jacquelin Dickinson Living Arrangements: Lives one story home with . 6 steps into home. 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 Transportation: drives DME: cane only HHC/SNF: none Patient DC goals: TBD DC PLAN: KATE GONZALEZ RN ACM
[2019-07-23 11:34] LABS: Pathologist Review Reviewed
[2019-07-23 11:36] LABS: Pathologist Review Reviewed
--- NOTE | 2019-07-23 12:47 | CASEMGMT ---
Addendum entered by Kun Mckee 07/23/19 12:49: Called to update that prior authorization needs completed and Dr. Cervantes's office was updated. Updated that Dr. Galdamez would speak with pt re: Hospice referral. is concerned that pt has pain management when discharged as he was having difficulty at home. Original Note: HARRISON CARRIZALES Note: Nurse from Dr. Cervantes's office called. HARRISON CARRIZALES updated her that prior authorization for Fentanyl and MS Contin was needed by [facility] and information had been faxed to office on the . Nurse states she will take care of this. Grant MCFARLANEN RN ACM
--- NOTE | 2019-07-23 13:22 | NURSING ---
Spoke w/ pt's Jacquelin, gave update
--- NOTE | 2019-07-23 13:54 | CON.PCM_ITS ---
- Consult Date of Consult: 07/23/[address] Deepti Delgado regarding patient of Dr. Cervantes with metastatic non-small cell lung cancer undergoing palliative chemotherapy. My final recommendation will be communicated by electronic medical record and also to the ICU team. - Reason for Consult Metastatic non-small cell lung cancer Sepsis Pancytopenia Coagulopathy History of pulmonary embolism History of Present Illness Date of Admission: 07/22/19 Chief Complaint: Dyspnea The patient is a 69 y/o M w/ PMHx: Chronic COPD, Former Tobacco use, EtOH Abuse, that is static non-small cell lung cancer right lower lobe with bone and pos sible liver metastasis on palliative chemotherapy. Earlier this month, he also presented with an acute pulmonary embolism to the right side started on Eliquis at that time with dyspnea. He started chemotherapy a week ago with KEYTRUDA, paclitaxel and carboplatin for non-small cell lung cancer PD-L1 4% with additional molecular markers double. He had a borderline performance status with dyspnea at presentation. A week after his chemotherapy, he presented to the ED on 07/21/2019 with unfortunate epistaxis, anemia and thrombocytopenia with cauterization in the ED with return to home. He progressively continued worsened dyspnea in addition to now onset over the last 24 hours reported cough of productive sputum occasionally blood-tinged, fever, arthralgia, myalgia, diarrhea, nausea, emesis, abdominal discomfort with bilateral lower quadrant cramping and occasional sharp stabbing pain, alteration to his sense of taste and smell as well as a bilateral frontal headache and congestion prompting return to ED. Work-up in the ED included T 97.7, heart rate initially 149, BP 116/56, respiratory rate 28, 100% on 4 L with most recent repeat vitals heart rate 126, BP 111/61, respiratory rate 19, 100% on 4 L, CBC with WBC 0.5, hemoglobin 8.1, platelet 42 with neutropenia with ANC 0.2 and absolute lymphocytes 0.18 with increased immature granulocytes, coags with PT 37.1, INR 3.8, PTT 52.3, ABG with pH 7.59, bicarb 26.4, PCO2 27.4, PO2 134, CMP with BUN/creatinine 42/1.25, glucose 138, lactic acid 5.4, total bilirubin 2.50, AST/ALT 71/109, alk phos 475, troponin less than 0.015, blood culture x2 pending per ED, coronavirus PCR pending per ED, chest x- ray with findings suspicious for viral pneumonia possibly secondary to COVID-19 infection, EKG with sinus tachycardia with non-specific ST-T wave changes. In the ED patient ministered Zosyn, vancomycin and normal saline. Upon patient admission discussed case with the sky cap, Dr. Galdamez and notified infectious disease, Dr. Elizalde. He was started on G-CSF 300mcg only for neutropenia. Patient complained of generalized abdominal pain and rectal bleeding since he was admitted and started on IV heparin. Heparin was discontinued because of cytopenia and bleeding and possible DIC. He has no nausea or vomiting. He has a productive cough along with shortness of breath and hemoptysis but no chest pain. Past Medical History Past Medical History (Chronic Problems): Chronic Problems (Last Reviewed 05/23/19 @ 15:54 by Monica Arriaga NP-C) Non-small cell lung cancer (Chronic) Bronchiectasis (Chronic) RLL Former smoker (Chronic) Hyperlipidemia (Chronic) JOSE DAVDI (obstructive sleep apnea) (Chronic) Macrocytosis (Chronic) Inguinal hernia (Chronic) Chronic obstructive lung disease (Chronic) Hypertensive disorder (Chronic) Alcoholism (Chronic) No intake since 03/2019. History of tobacco abuse (Chronic) Continuous chronic alcoholism (Chronic) Medical History: Medical History (Last Reviewed 05/23/19 @ 15:54 by Monica Arriaga, WORKER'S COMPENSATION CLAIMS EXAMINER-C) Former smoker (Acute) Z87.891 Hyperlipidemia (Chronic) E78.5 JOSE DAVID (obstructive sleep apnea) (Chronic) G47.33 Macrocytosis (Chronic) D75.89 Inguinal hernia (Chronic) K40.90 Chronic obstructive lung disease (Chronic) J44.9 Hypertensive disorder (Chronic) I10 Alcoholism (Chronic) F10.20 Allergies No Known Allergies Allergy (Verified 07/21/19 12:13) Home Medications: Ambulatory Orders Medication Instructions Recorded multivitamin 1 tab PO DAILY 01/20/19 atorvastatin 10 mg tablet 10 mg PO QHS 01/21/19 Azithromycin [Zithromax Z-Cortez] 250 mg PO UD #1 box 07/17/19 Oxycodone [Oxyir] 5 - 10 mg PO Q6H PRN PRN 07/17/19 Apixaban [Eliquis] 5 - 10 mg PO BID 07/22/19 Dexamethasone [Decadron] 4 mg PO BIDCM 07/22/19 Ondansetron HCl [Zofran] 8 mg PO Q8H PRN PRN 07/22/19 Surgical History: Surgical History (Last Reviewed 05/23/19 @ 15:54 by WOODY Webb) History of carpal tunnel surgery (Resolved) Z98.890 History of inguinal hernia repair (Resolved) Z98.890, Z87.19 History of appendectomy (Resolved) Z90.49 History of colonoscopy Onset Date: ~2013 Z98.890 Surgical History: herniorrhaphy, - - Vasectomy, appendectomy, left inguinal hernia repair, bilateral hand surgery, bilateral carpal tunnel surgery. Psychiatric History: No pertinent psych hx Lives: Spouse/ Significant Other Smoking Status: Former smoker - Patient quit cigarette tobacco usage in 2012 with prior to this 2 pack/day since he had been a teenager. Tobacco Use: Non-smoker Alcohol: Heavy - Patient had been drinking considerable amount of beer however he has not been drinking since March. Drugs: None - *Family History Maternal Family History: Family History (Last Reviewed 05/23/19 @ 15:54 by WOODY Webb) Father Hypertension Cancer CVA (cerebral vascular accident) Mother Heart disease History Items: Heart Disease - Maternal family history of heart disease, pacemaker status. Paternal Family History: Family History (Last Reviewed 05/23/19 @ 15:54 by WOODY Webb) Father Hypertension Cancer CVA (cerebral vascular accident) Mother Heart disease History Items: Cancer - Father with history of prostate cancer., High Ch olesterol, Hypertension, Stroke Review of Systems Constitutional: Reports: Anorexia, Fever, Malaise, Weakness, Fatigue. Denies: Chills, Weight Change HEENT: Reports: Head Aches, Nasal Congestion, Sinus Congestion, Sore Throat. Denies: Sinus Drainage Cardiovascular: Denies: Chest Pain, Chest Pressure, Chest Tightness, Light Headedness, Palpitations, Syncope Respiratory: Reports: Cough, Hemoptysis, Shortness of breath at rest, Shortness of breath upon exertion, Sputum production Gastrointestinal: Reports: Abdominal Pain, Diarrhea, Nausea, Vomiting Genitourinary: Denies: Dysuria Musculoskeletal: Reports: Back Pain, Joint Pain, Muscle pain. Denies: Joint Tenderness Skin: Denies: Rash, Wounds Neurological: Denies: Numbness, Tingling, Focal weakness Psychiatric: Reports: Anxiety, Depression. Denies: Homicidal Ideations, Suicidal Ideations Hematologic/ Lymphatic: Reports: Anemia, Easy Bruising, Easy Bleeding Severe sepsis (Acute) Respiratory failure with hypoxia (Acute) Pneumonia (Acute) COVID-19 negative. Pancytopenia (Acute) Coagulopathy (Acute) Subjective: Laying in the ED bed, fatigued and ill-appearing, increased respiratory rate and accessory muscle usage, evidence of respiratory distress. Objective: Physical Examination: General: awake, alert, oriented to self, place and recent events, remains cooperative, recent evidence of emesis, laying in the ED bed, fatigued and ill- appearing, increased work of breathing and accessory muscle usage, evidence of respiratory distress. Skin: normal color, turgor, no icterus, cyanosis. HEENT: AT/NC, EOMI, PERRLA, dry MM, no carotid bruits or JVD noted. Lungs: Diffusely diminished breath sounds, greater bases, increased respiratory rate, accessory muscle usage, evidence of distress, no obvious rales, ronchi or wheezing. Heart: Tachycardic with regular; no gallop, rub audible. Abdomen: soft, discomfort with palpation of the abdomen, greater bilateral lower quadrants, no voluntary guarding, no obvious abdominal distention, active bowel sounds, difficult assessment of HSM secondary to abdominal discomfort with examination. + rectal bleeding Extremities: no cyanosis, clubbing, or edema. Neurological: patient awake, alert, oriented as noted; cognitive function near baseline but given fatigue and lethargy decreased; pupils equally reactive to light and accomodation; cranial nerves II-XII grossly normal, moving all 4 extremities, no focal deficits, strength severely global decrease secondary to acute presentation Psychiatric: affect appears fatigued, ill-appearing, no acute evidence of depressive or anxiety feelings. - Physical Exam Vital Signs - 24 hr Temp Pulse Resp BP BP Pulse Ox 07/23/19 13:00 99.2 F H 82 18 116/51 L 100 07/23/19 12:46 79 100 07/23/19 12:45 99.1 F 81 12 118/45 L 100 07/23/19 12:30 99.1 F 80 18 111/48 L 100 07/23/19 12:22 80 07/23/19 12:15 99.1 F 82 16 113/49 L 100 07/23/19 12:06 99.1 F 81 16 110/50 L 100 07/23/19 12:00 99.1 F 80 12 110/50 L 100 07/23/19 09:37 99.2 F H 90 20 H 108/48 L 100 07/23/19 09:00 89 27 H 123/50 H 99 07/23/19 08:36 99.2 F H 89 27 H 122/53 H 100 07/23/19 08:00 99.2 F H 89 11 L 120/57 L 100 07/23/19 07:35 95 07/23/19 07:00 94 95/72 100 07/23/19 06:07 99.4 F H 93 19 H 109/59 L 100 07/23/19 06:04 99.8 F H 101 H 20 H 110/58 L 100 07/23/19 05:07 99.9 F H 100 27 H 114/52 L 100 07/23/19 05:00 99.9 F H 104 H 17 95/58 L 100 07/23/19 04:52 100.0 F H 99 10 L 100/59 L 100 07/23/19 04:00 100.4 F H 97 18 102/54 L 99 07/23/19 03:09 106 H 07/23/19 03:00 100.4 F H 105 H 18 109/56 L 100 07/23/19 02:00 100.0 F H 103 H 26 H 107/58 L 100 07/23/19 01:00 100.0 F H 101 H 13 110/56 L 100 07/23/19 00:00 100.4 F H 104 H 9 L 93/56 L 95 07/22/19 23:34 116 H 07/22/19 22:30 121 H 17 92/58 L 100 07/22/19 22:15 121 H 100 07/22/19 22:00 120 H 26 H 97/56 L 95 07/22/19 21:46 112 H 07/22/19 21:45 113 H 20 H 85/56 L 90 07/22/19 21:30 117 H 21 H 106/51 L 89 07/22/19 21:12 99.2 F H 121 H 13 90/50 L 90 07/22/19 20:07 100.3 F H 124 H 18 102/62 97 07/22/19 19:53 100.3 F H 122 H 23 H 93/56 L 100 07/22/19 19:00 126 H 19 H 111/61 100 07/22/19 18:44 97.9 F 131 H 24 H 98/55 L 100 07/22/19 18:33 97.9 F 127 H 28 H 98/55 L 100 07/22/19 17:44 129 H 22 H 102/55 L 07/22/19 17:42 97.7 F L 149 H 28 H 116/56 L 07/22/19 17:27 97.7 F L 149 H 28 H 116/56 L Oxygen Flow Rate (L/min) 4 Oxygen Delivery Method Nasal Cannula Weight: 161 lb 12.8 oz Body Mass Index (BMI) 23.8 Microbiology Past 72 Hours 07/23/19 03:25 Stool Enteric Bacteriology - Final 07/22/19 22:10 Mucosa - Nasopharyngeal Respiratory Panel (PCR) - Final 07/23/19 01:20 Stool C. difficile DNA Amplification - Final 07/22/19 22:30 Urine Catheter - Catheter Legionella Antigen - Final 07/22/19 22:30 Urine Catheter - Catheter Streptococcus pneumoniae Antigen (M - Final 07/22/19 18:00 Mucosa - Nasopharyngeal Coronavirus COVID-19 PCR - Final Laboratory Results 07/22/19 17:55: WBC 0.5 L*, RBC 2.72 L, Hgb 8.1 L, Hct 26.0 L, MCV 95.6 H, MCH 29.8, MCHC 31.2 L, RDW Std Deviation 46.3 H, RDW Coeff of Nevin 13.4, Plt Count 42 L*, MPV 9.6, Immature Gran % (Auto) 1.900 H, Neut % (Auto) 45.2 L, Lymph % (Auto) 34.0, [place] % (Auto) 17.0 H, Eos % (Auto) 1.9, Baso % (Auto) 0.0, Absolute Neuts (auto) 0.2 L, Absolute Lymphs (auto) 0.18 L, Nucleated RBC % 0, Differential Comment SCANNED, Diff Path Review Reviewed, Platelet Estimate MKD 07/22/19 17:55: PT 37.1 H, INR 3.8 H*, APTT 52.3 H 07/22/19 17:55: Sodium 141, Potassium 3.9, Chloride 105, Carbon Dioxide 25.0, Anion Gap 11, BUN 42 H, Creatinine 1.25, Estim Creat Clear Calc 55.77, Est GFR (MDRD) Af Amer 74, Est GFR (MDRD) Non-Af 61, BUN/Creatinine Ratio 33.6 H, Glucose 138 H, Calcium 10.0, Total Bilirubin 2.50 H, AST 71 H, ALT 109 H, Alkaline Phosphatase 475 H, Troponin I < 0.015, Total Protein 6.5, Albumin 1.7 L , Globulin 4.8 H, Albumin/Globulin Ratio 0.4 L 07/22/19 17:55: Lactic Acid 5.4 H* 07/22/19 17:55: Phosphorus 3.6, Magnesium 2.0, Ferritin 54336 H, Lactate Dehydrogenase 357 H, C-React Prot Ext Range 293.00 H 07/22/19 18:00: COVID-19 (YADY) Cancelled 07/22/19 18:14: Specimen Type ART, Sample Site R BRACHIAL, pH 7.59 H, Bicarbonate Actual 26.4 H, POC Total CO2 27, Base Excess 5 H, O2 Saturation 99, ABG pCO2 27.4 L, ABG pO2 134 H, O2 Delivery Device Nasal Can, Liter Flow 4.0 07/22/19 21:55: APTT 50.4 H, D-Dimer Quant (PE/DVT) 2.67 H* 07/22/19 21:55: Procalcitonin Cancelled 07/22/19 21:55: MRSA (PCR) Negative 07/22/19 22:30: Urine Color Yadira, Urine Clarity Sl. Cloudy, Urine pH 5.0, Ur Specific [place] 1.015, Urine Protein 30 H, Urine Glucose (UA) Normal, Urine Ketones 5 H, Urine Occult Blood 10 H, Urine Nitrite Negative, Urine Bilirubin 3 H, Urine Urobilinogen 1 H, Ur Leukocyte Esterase 25 H, Urine RBC 0 SEEN, Urine WBC 0-5 SEEN, Ur Squamous Epith Cells 0 SEEN, Urine Bacteria 0 SEEN, Hyaline Casts 0-5 SEEN, Urine Mucus 0 SEEN 07/22/19 22:40: Lactic Acid 2.2 H* 07/22/19 23:40: Procalcitonin 5.69 H 07/23/19 01:25: WBC 0.5 L*, RBC 2.20 L, Hgb 6.6 L, Hct 20.5 L, MCV 93.2, MCH 30.0, MCHC 32.2, RDW Std Deviation 44.9 H, RDW Coeff of Nevin 13.4, Plt Count 31 L*, MPV 8.7, Immature Gran % (Auto) WORKER'S COMPENSATION CLAIMS EXAMINER, Neut % (Auto) WORKER'S COMPENSATION CLAIMS EXAMINER, Lymph % (Auto) WORKER'S COMPENSATION CLAIMS EXAMINER, [place] % (Auto) WORKER'S COMPENSATION CLAIMS EXAMINER, Eos % (Auto) WORKER'S COMPENSATION CLAIMS EXAMINER, Baso % (Auto) WORKER'S COMPENSATION CLAIMS EXAMINER, Absolute Neuts (auto) 0.3 L , Absolute Lymphs (auto) 0.19 L, Neutrophils % (Manual) 42 L, Band Neutrophils % 14 H, Lymphocytes % (Manual) 38, Monocytes % (Manual) 6, Nucleated RBC % WORKER'S COMPENSATION CLAIMS EXAMINER, Diff Path Review Reviewed, Platelet Estimate MKD 07/23/19 02:45: PT 43.9 H, INR 4.7 H*, D-Dimer Quant (PE/DVT) 2.47 H* 07/23/19 02:45: Sodium 143, Potassium 4.0, Chloride 105, Carbon Dioxide 27.0, Anion Gap 11, BUN 58 H, Creatinine 1.69 H, Estim Creat Clear Calc 42.13, Est GFR (MDRD) Af Amer 52 L, Est GFR (MDRD) Non-Af 43 L, BUN/Creatinine Ratio 34.3 H, Glucose 115 H, Calcium 9.0, Total Bilirubin 1.90 H, AST 53 H, ALT 83 H, Alkaline Phosphatase 339 H, Total Protein 5.3 L, Albumin 1.3 L, Globulin 4.0, Albumin/Globulin Ratio 0.3 L 07/23/19 02:45: Blood Type O POSITIVE, Antibody Screen NEGATIVE, Crossmatch See Detail 07/23/19 04:05: Hep Bs Antigen Non-Reactive, Hep Bs Antibody Non-Reactive, Hepatitis C Antibody Non-Reactive 07/23/19 09:45: Fibrinogen 690 H Current Medications Sodium Chloride () 1,000 mls @ 999 mls/hr IV .Q1H1M ONE Stop: 07/22/19 19:55 Piperacillin Sod/Tazobactam (Sod 4.5 gm/ Sodium Chloride) 100 mls @ 200 mls/hr IV X1 ONE Stop: 07/22/19 19:25 Vancomycin HCl (Vancomycin) 1,000 mg in 200 mls @ 200 mls/hr IV X1 ONE Stop: 07/22/19 20:29 Assessment/Plan All Active Problems (Last Reviewed 05/23/19 @ 15:54 by Monica Arriaga NP-C) Severe sepsis (Acute) Respiratory failure with hypoxia (Acute) Pneumonia (Acute) Pancytopenia (Acute) Supraclavicular lymphadenopathy (Acute) Esophageal lesion (Acute) Multiple lung nodules on CT (Acute) Right lower lobe pulmonary nodule (Acute) History of carpal tunnel surgery (Resolved) History of inguinal hernia repair (Resolved) History of appendectomy (Resolved) The patient is a 69 y/o M w/ PMHx: Chronic COPD, Former Tobacco use, HTN, EtOH Abuse, metastatic non-small cell lung CA on chemotherapy. Patient decompensated over the last 24-hour with respiratory failure, sepsis, pancytopenia and possible DIC. His overall prognosis is very grave. ASSESSMENT/PLAN: 1. Acute Severe Sepsis secondary to Acute Hypoxic Respiratory Failure secondary to Bilateral Pneumonia Plan: -Continue broad-spectrum antibiotics -ID consult 2. Elevated bilirubin, LFTs: Noted to have progressed over the last day, elevated on 07/21/2019 as well as current presentation, total bilirubin 2.50, AST/ALT 71/109, secondary to shock liver / DIC and sepsis or immunotherapy KEYTRUDA less likely Plan: -Follow LFTs 3. Lung cancer, non-small cell: Incurable disease with poor performance status. -Overall, prognosis is poor and may not be a candidate for palliative chemotherapy at this time. Plan: -No further chemotherapy treatment planned -Consider hospice referral if condition does not change in the next 24-hour 4. Chronic COPD Plan: -Currently on BiPAP & 50% oxygen -Follow -Up with Dr. Galdamez 5. Pancytopenia, acute: Likely secondary to recent chemotherapy, sepsis. Plan: -Continue Granix 300mcg daily -Transfuse blood and platelet; Keep Hgb > 8 & platelet > 50,000 6. History of recent pulmonary embolism: Recent PE diagnosis approximately 1 week prior, anticoagulation stopped because of thrombocytopenia and GI bleeding Plan: -Venous Doppler study lower extremity once bleeding stabilized 7. Abdominal pain and GI bleeding Plan: -If his abdominal pain does not improve with blood and platelet transfusion, consider CT abdomen to rule out retroperitoneal bleeding from DIC. cc;Dr. Harmeet Galdamze, Dr. Deepti Delgado; Dr. Jose Roberto Cervantes; Dr. Johnathon Francois; Dr. Marquis Elizalde
[2019-07-23] MEDS: oxyCODONE 5 MG Tablet 10 MG PO ×3 (13:55→23:53)
[2019-07-23] MEDS: TBO-FILGRASTIM 300 MCG/0.5 ML ML SC (14:02)
[2019-07-23 15:55] LABS: Absolute Lymphocyte Count 0.12 X10^3/uL (0.83-4.51); Absolute Neutrophil Count 0.2 X10^3/uL (2.0-7.7); Eosinophil# 0.02 X10^3/uL; Eosinophils% 4.9 % (0-5); Hematocrit 19.8 % (40-54); Hemoglobin 6.5 g/dL (13.0-16.5); Lymphocyte # 0.12 X10^3/ul (4.0); Lymphocyte % 29.3 % (19-41); Mean Corp Hgb Conc 32.8 g/dL (32-36); Mean Corpuscular Hgb 29.8 pg (27.0-32.0); Mean Corpuscular Volume 90.8 fL (80-94); Mean Platelet Vol. 9.3 fl (6.2-12.0); Monocyte% 24.4 % (0-10); NRBC Flagged by Analyzer 0 % (0-5); Neutrophil # 0.17 X10^3/uL (2.7-7.7); Neutrophil % 41.4 % (47-70); POSITIVE COUNT YES; POSITIVE DIFFERENTIAL YES; POSITIVE MORPHOLOGY YES; Platelet Count 61 K/mm3 (150-450); RBC Distribution Width CV 14.4 % (11.6-14.6); RBC Distribution Width SD 46.9 fl (35.1-43.9); Red Blood Count 2.18 M/mm3 (4.6-6.2)
[2019-07-23 16:38] LABS: Differential Indicated SCAN CRITERIA MET; White Blood Count 0.4 K/mm3 (4.4-11.0)
--- NOTE | 2019-07-23 16:44 | CON.PCM_ITS ---
Problem List (1) Severe sepsis Status: Acute Reason for Consult: sepsis Consulted by: Dr. Castillo History of Present Illness: The patient is a 69 year old M with NSCLC, last chemo 1-2 weeks ago, presented yesterday with one week of taste/smell changes, 1-2 days of not feeling well, aches, fatigue, headache, sore throat, congestion, dyspnea/cough, and central abd pain. Lost appetite. Pain in abd was moderate, intermittent, burning, not associated with food. No sick contacts, at home has been feeling ok other than tired from helping to take care of him. Developed some mild fever/chills. Came to ED, found to be pancytopenic with fever to 100.4. Admitted on vanc/zosyn to icu in covid precautions. Full ROS performed and neg except as noted above. - Medical History Past Medical History (Chronic Problems): Chronic Problems (Last Reviewed 05/23/19 @ 15:54 by Monica Arriaga NP-C) Non-small cell lung cancer (Chronic) Bronchiectasis (Chronic) RLL Former smoker (Chronic) Hyperlipidemia (Chronic) JOSE DAVID (obstructive sleep apnea) (Chronic) Macrocytosis (Chronic) Inguinal hernia (Chronic) Chronic obstructive lung disease (Chronic) Hypertensive disorder (Chronic) Alcoholism (Chronic) No intake since 03/2019. History of tobacco abuse (Chronic) Continuous chronic alcoholism (Chronic) Allergies/Adverse Reactions: Allergies No Known Allergies Allergy (Verified 07/21/19 12:13) Home Medications: Ambulatory Orders Medication Instructions Recorded multivitamin 1 tab PO DAILY 01/20/19 atorvastatin 10 mg tablet 10 mg PO QHS 01/21/19 Azithromycin [Zithromax Z-Cortez] 250 mg PO UD #1 box 07/17/19 Oxycodone [Oxyir] 5 - 10 mg PO Q6H PRN PRN 07/17/19 Apixaban [Eliquis] 5 - 10 mg PO BID 07/22/19 Dexamethasone [Decadron] 4 mg PO BIDCM 07/22/19 Ondansetron HCl [Zofran] 8 mg PO Q8H PRN PRN 07/22/19 - Social History SMOKING STATUS:: Former smoker Vital Signs Temp Pulse Resp BP Pulse Ox 99.2 F H 73 14 100/43 L 100 07/23/19 15:00 07/23/19 16:00 07/23/19 16:00 07/23/19 16:00 07/23/19 16:00 Oxygen Flow Rate (L/min) 6 Oxygen Delivery Method Nasal Cannula Weight: 72.8 kg Body Mass Index (BMI) 20.9 Microbiology Past 72 Hours 07/23/19 03:25 Enteric Bacteriology - Final Stool 07/22/19 22:10 Respiratory Panel (PCR) - Final Mucosa - Nasopharyngeal 07/23/19 01:20 C. difficile DNA Amplification - Final Stool 07/22/19 22:30 Legionella Antigen - Final Urine Catheter - Catheter 07/22/19 22:30 Streptococcus pneumoniae Antigen (M - Final Urine Catheter - Catheter 07/22/19 18:00 Coronavirus COVID-19 PCR - Final Mucosa - Nasopharyngeal Laboratory Tests Past 24 Hrs 07/22/19 07/22/19 07/22/19 17:55 17:55 17:55 WBC 0.5 L* RBC 2.72 L Hgb 8.1 L Hct 26.0 L MCV 95.6 H MCH 29.8 MCHC 31.2 L RDW Std Deviation 46.3 H RDW Coeff of Nevin 13.4 Plt Count 42 L* MPV 9.6 Immature Gran % (Auto) 1.900 H Neut % (Auto) 45.2 L Lymph % (Auto) 34.0 [place] % (Auto) 17.0 H Eos % (Auto) 1.9 Baso % (Auto) 0.0 Absolute Neuts (auto) 0.2 L Absolute Lymphs (auto) 0.18 L Neutrophils % (Manual) Band Neutrophils % Lymphocytes % (Manual) Monocytes % (Manual) Nucleated RBC % 0 Differential Comment SCANNED Diff Path Review Reviewed Platelet Estimate MKD DEC PT 37.1 H INR 3.8 H* APTT 52.3 H Fibrinogen D-Dimer Quant (PE/DVT) Specimen Type Sample Site pH Bicarbonate Actual POC Total CO2 Base Excess O2 Saturation ABG pCO2 ABG pO2 O2 Delivery Device Liter Flow Sodium 141 Potassium 3.9 Chloride 105 Carbon Dioxide 25.0 Anion Gap 11 BUN 42 H Creatinine 1.25 Estim Creat Clear Calc 55.77 Est GFR (MDRD) Af Amer 74 Est GFR (MDRD) Non-Af 61 BUN/Creatinine Ratio 33.6 H Glucose 138 H Lactic Acid Calcium 10.0 Phosphorus Magnesium Ferritin Total Bilirubin 2.50 H AST 71 H ALT 109 H Alkaline Phosphatase 475 H Lactate Dehydrogenase Troponin I < 0.015 C-React Prot Ext Range Total Protein 6.5 Albumin 1.7 L Globulin 4.8 H Albumin/Globulin Ratio 0.4 L Procalcitonin Urine Color Urine Clarity Urine pH Ur Specific [place] Urine Protein Urine Glucose (UA) Urine Ketones Urine Occult Blood Urine Nitrite Urine Bilirubin Urine Urobilinogen Ur Leukocyte Esterase Urine RBC Urine WBC Ur Squamous Epith Cells Urine Bacteria Hyaline Casts Urine Mucus COVID-19 (YADY) Hep Bs Antigen Hep Bs Antibody Hepatitis C Antibody MRSA (PCR) Blood Type Antibody Screen Crossmatch 07/22/19 07/22/19 07/22/19 17:55 17:55 18:00 WBC RBC Hgb Hct MCV MCH MCHC RDW Std Deviation RDW Coeff of Nevin Plt Count MPV Immature Gran % (Auto) Neut % (Auto) Lymph % (Auto) [place] % (Auto) Eos % (Auto) Baso % (Auto) Absolute Neuts (auto) Absolute Lymphs (auto) Neutrophils % (Manual) Band Neutrophils % Lymphocytes % (Manual) Monocytes % (Manual) Nucleated RBC % Differential Comment Diff Path Review Platelet Estimate PT INR APTT Fibrinogen D-Dimer Quant (PE/DVT) Specimen Type Sample Site pH Bicarbonate Actual POC Total CO2 Base Excess O2 Saturation ABG pCO2 ABG pO2 O2 Delivery Device Liter Flow Sodium Potassium Chloride Carbon Dioxide Anion Gap BUN Creatinine Estim Creat Clear Calc Est GFR (MDRD) Af Amer Est GFR (MDRD) Non-Af BUN/Creatinine Ratio Glucose Lactic Acid 5.4 H* Calcium Phosphorus 3.6 Magnesium 2.0 Ferritin 29820 H Total Bilirubin AST ALT Alkaline Phosphatase Lactate Dehydrogenase 357 H Troponin I C-React Prot Ext Range 293.00 H Total Protein Albumin Globulin Albumin/Globulin Ratio Procalcitonin Urine Color Urine Clarity Urine pH Ur Specific [place] Urine Protein Urine Glucose (UA) Urine Ketones Urine Occult Blood Urine Nitrite Urine Bilirubin Urine Urobilinogen Ur Leukocyte Esterase Urine RBC Urine WBC Ur Squamous Epith Cells Urine Bacteria Hyaline Casts Urine Mucus COVID-19 (YADY) Cancelled Hep Bs Antigen Hep Bs Antibody Hepatitis C Antibody MRSA (PCR) Blood Type Antibody Screen Crossmatch 07/22/19 07/22/19 07/22/19 18:14 21:55 21:55 WBC RBC Hgb Hct MCV MCH MCHC RDW Std Deviation RDW Coeff of Nevin Plt Count MPV Immature Gran % (Auto) Neut % (Auto) Lymph % (Auto) [place] % (Auto) Eos % (Auto) Baso % (Auto) Absolute Neuts (auto) Absolute Lymphs (auto) Neutrophils % (Manual) Band Neutrophils % Lymphocytes % (Manual) Monocytes % (Manual) Nucleated RBC % Differential Comment Diff Path Review Platelet Estimate PT INR APTT 50.4 H Fibrinogen D-Dimer Quant (PE/DVT) 2.67 H* Specimen Type ART Sample Site R BRACHIAL pH 7.59 H Bicarbonate Actual 26.4 H POC Total CO2 27 Base Excess 5 H O2 Saturation 99 ABG pCO2 27.4 L ABG pO2 134 H O2 Delivery Device Nasal Can Liter Flow 4.0 Sodium Potassium Chloride Carbon Dioxide Anion Gap BUN Creatinine Estim Creat Clear Calc Est GFR (MDRD) Af Amer Est GFR (MDRD) Non-Af BUN/Creatinine Ratio Glucose Lactic Acid Calcium Phosphorus Magnesium Ferritin Total Bilirubin AST ALT Alkaline Phosphatase Lactate Dehydrogenase Troponin I C-React Prot Ext Range Total Protein Albumin Globulin Albumin/Globulin Ratio Procalcitonin Cancelled Urine Color Urine Clarity Urine pH Ur Specific [place] Urine Protein Urine Glucose (UA) Urine Ketones Urine Occult Blood Urine Nitrite Urine Bilirubin Urine Urobilinogen Ur Leukocyte Esterase Urine RBC Urine WBC Ur Squamous Epith Cells Urine Bacteria Hyaline Casts Urine Mucus COVID-19 (YADY) Hep Bs Antigen Hep Bs Antibody Hepatitis C Antibody MRSA (PCR) Blood Type Antibody Screen Crossmatch 07/22/19 07/22/19 07/22/19 21:55 22:30 22:40 WBC RBC Hgb Hct MCV MCH MCHC RDW Std Deviation RDW Coeff of Nevin Plt Count MPV Immature Gran % (Auto) Neut % (Auto) Lymph % (Auto) [place] % (Auto) Eos % (Auto) Baso % (Auto) Absolute Neuts (auto) Absolute Lymphs (auto) Neutrophils % (Manual) Band Neutrophils % Lymphocytes % (Manual) Monocytes % (Manual) Nucleated RBC % Differential Comment Diff Path Review Platelet Estimate PT INR APTT Fibrinogen D-Dimer Quant (PE/DVT) Specimen Type Sample Site pH Bicarbonate Actual POC Total CO2 Base Excess O2 Saturation ABG pCO2 ABG pO2 O2 Delivery Device Liter Flow Sodium Potassium Chloride Carbon Dioxide Anion Gap BUN Creatinine Estim Creat Clear Calc Est GFR (MDRD) Af Amer Est GFR (MDRD) Non-Af BUN/Creatinine Ratio Glucose Lactic Acid 2.2 H* Calcium Phosphorus Magnesium Ferritin Total Bilirubin AST ALT Alkaline Phosphatase Lactate Dehydrogenase Troponin I C-React Prot Ext Range Total Protein Albumin Globulin Albumin/Globulin Ratio Procalcitonin Urine Color Yadira Urine Clarity Sl. Cloudy Urine pH 5.0 Ur Specific [place] 1.015 Urine Protein 30 H Urine Glucose (UA) Normal Urine Ketones 5 H Urine Occult Blood 10 H Urine Nitrite Negative Urine Bilirubin 3 H Urine Urobilinogen 1 H Ur Leukocyte Esterase 25 H Urine RBC 0 SEEN Urine WBC 0-5 SEEN Ur Squamous Epith Cells 0 SEEN Urine Bacteria 0 SEEN Hyaline Casts 0-5 SEEN Urine Mucus 0 SEEN COVID-19 (YADY) Hep Bs Antigen Hep Bs Antibody Hepatitis C Antibody MRSA (PCR) Negative Blood Type Antibody Screen Crossmatch 07/22/19 07/23/19 07/23/19 23:40 01:25 02:45 WBC 0.5 L* RBC 2.20 L Hgb 6.6 L Hct 20.5 L MCV 93.2 MCH 30.0 MCHC 32.2 RDW Std Deviation 44.9 H RDW Coeff of Nevin 13.4 Plt Count 31 L* MPV 8.7 Immature Gran % (Auto) W[employer]CHANGE SPECIALIST Neut % (Auto) WASTE/MATERIALS EXCHANGE SPECIALIST Lymph % (Auto) WASTE/MATERIALS EXCHANGE SPECIALIST [place] % (Auto) WASTE/MATERIALS EXCHANGE SPECIALIST Eos % (Auto) WASTE/MATERIALS EXCHANGE SPECIALIST Baso % (Auto) WASTE/MAT[employer] EXCHANGE SPECIALIST Absolute Neuts (auto) 0.3 L Absolute Lymphs (auto) 0.19 L Neutrophils % (Manual) 42 L Band Neutrophils % 14 H Lymphocytes % (Manual) 38 Monocytes % (Manual) 6 Nucleated RBC % WASTE/MATERIALS EXCHANGE SPECIALIST Differential Comment Diff Path Review Reviewed Platelet Estimate MKD DEC PT 43.9 H INR 4.7 H* APTT Fibrinogen D-Dimer Quant (PE/DVT) 2.47 H* Specimen Type Sample Site pH Bicarbonate Actual POC Total CO2 Base Excess O2 Saturation ABG pCO2 ABG pO2 O2 Delivery Device Liter Flow Sodium Potassium Chloride Carbon Dioxide Anion Gap BUN Creatinine Estim Creat Clear Calc Est GFR (MDRD) Af Amer Est GFR (MDRD) Non-Af BUN/Creatinine Ratio Glucose Lactic Acid Calcium Phosphorus Magnesium Ferritin Total Bilirubin AST ALT Alkaline Phosphatase Lactate Dehydrogenase Troponin I C-React Prot Ext Range Total Protein Albumin Globulin Albumin/Globulin Ratio Procalcitonin 5.69 H Urine Color Urine Clarity Urine pH Ur Specific [place] Urine Protein Urine Glucose (UA) Urine Ketones Urine Occult Blood Urine Nitrite Urine Bilirubin Urine Urobilinogen Ur Leukocyte Esterase Urine RBC Urine WBC Ur Squamous Epith Cells Urine Bacteria Hyaline Casts Urine Mucus COVID-19 (YADY) Hep Bs Antigen Hep Bs Antibody Hepatitis C Antibody MRSA (PCR) Blood Type Antibody Screen Crossmatch 07/23/19 07/23/19 07/23/19 02:45 02:45 04:05 WBC RBC Hgb Hct MCV MCH MCHC RDW Std Deviation RDW Coeff of Nevin Plt Count MPV Immature Gran % (Auto) Neut % (Auto) Lymph % (Auto) [place] % (Auto) Eos % (Auto) Baso % (Auto) Absolute Neuts (auto) Absolute Lymphs (auto) Neutrophils % (Manual) Band Neutrophils % Lymphocytes % (Manual) Monocytes % (Manual) Nucleated RBC % Differential Comment Diff Path Review Platelet Estimate PT INR APTT Fibrinogen D-Dimer Quant (PE/DVT) Specimen Type Sample Site pH Bicarbonate Actual POC Total CO2 Base Excess O2 Saturation ABG pCO2 ABG pO2 O2 Delivery Device Liter Flow Sodium 143 Potassium 4.0 Chloride 105 Carbon Dioxide 27.0 Anion Gap 11 BUN 58 H Creatinine 1.69 H Estim Creat Clear Calc 42.13 Est GFR (MDRD) Af Amer 52 L Est GFR (MDRD) Non-Af 43 L BUN/Creatinine Ratio 34.3 H Glucose 115 H Lactic Acid Calcium 9.0 Phosphorus Magnesium Ferritin Total Bilirubin 1.90 H AST 53 H ALT 83 H Alkaline Phosphatase 339 H Lactate Dehydrogenase Troponin I C-React Prot Ext Range Total Protein 5.3 L Albumin 1.3 L Globulin 4.0 Albumin/Globulin Ratio 0.3 L Procalcitonin Urine Color Urine Clarity Urine pH Ur Specific [place] Urine Protein Urine Glucose (UA) Urine Ketones Urine Occult Blood Urine Nitrite Urine Bilirubin Urine Urobilinogen Ur Leukocyte Esterase Urine RBC Urine WBC Ur Squamous Epith Cells Urine Bacteria Hyaline Casts Urine Mucus COVID-19 (YADY) Hep Bs Antigen Non-Reactive Hep Bs Antibody Non-Reactive Hepatitis C Antibody Non-Reactive MRSA (PCR) Blood Type O POSITIVE Antibody Screen NEGATIVE Crossmatch See Detail 07/23/19 07/23/19 09:45 13:30 WBC 0.4 L* RBC 2.18 L Hgb 6.5 L Hct 19.8 L MCV 90.8 MCH 29.8 MCHC 32.8 RDW Std Deviation 46.9 H RDW Coeff of Nevin 14.4 Plt Count 61 L MPV 9.3 Immature Gran % (Auto) 0.000 Neut % (Auto) 41.4 L Lymph % (Auto) 29.3 [place] % (Auto) 24.4 H Eos % (Auto) 4.9 Baso % (Auto) 0.0 Absolute Neuts (auto) 0.2 L Absolute Lymphs (auto) 0.12 L Neutrophils % (Manual) Band Neutrophils % Lymphocytes % (Manual) Monocytes % (Manual) Nucleated RBC % 0 Differential Comment Diff Path Review Platelet Estimate PT INR APTT Fibrinogen 690 H D-Dimer Quant (PE/DVT) Specimen Type Sample Site pH Bicarbonate Actual POC Total CO2 Base Excess O2 Saturation ABG pCO2 ABG pO2 O2 Delivery Device Liter Flow Sodium Potassium Chloride Carbon Dioxide Anion Gap BUN Creatinine Estim Creat Clear Calc Est GFR (MDRD) Af Amer Est GFR (MDRD) Non-Af BUN/Creatinine Ratio Glucose Lactic Acid Calcium Phosphorus Magnesium Ferritin Total Bilirubin AST ALT Alkaline Phosphatase Lactate Dehydrogenase Troponin I C-React Prot Ext Range Total Protein Albumin Globulin Albumin/Globulin Ratio Procalcitonin Urine Color Urine Clarity Urine pH Ur Specific [place] Urine Protein Urine Glucose (UA) Urine Ketones Urine Occult Blood Urine Nitrite Urine Bilirubin Urine Urobilinogen Ur Leukocyte Esterase Urine RBC Urine WBC Ur Squamous Epith Cells Urine Bacteria Hyaline Casts Urine Mucus COVID-19 (YADY) Hep Bs Antigen Hep Bs Antibody Hepatitis C Antibody MRSA (PCR) Blood Type Antibody Screen Crossmatch - Other Studies Radiology: [] reviewed Other Studies: [] Route of nutrition/ use of supplements: [] Nutritional Intake: [] IV Site: [] Hernández Catheter: [] - Physical Exam General: Alert, Cooperative, - - ill appearing HEENT: Atraumatic, PERRLA, EOMI Neck: Supple, No Nodes Lungs: Diminished Cardiovascular: Regular rate, Regular Rhythm Abdomen: Soft, Non Tender, Non-Distended Extremities: No edema Skin: No rashes IV Site: Peripheral, without redness Musculoskeletal: No Tenderness to Palpation of Joints or Extremities Neurological: Cranial nerves II-XII grossly intact - Assessment/Plan Antibiotics: [] Assessment/Plan: [] Active and Suspected Problems (Last Reviewed 05/23/19 @ 15:54 by Monica Arriaga NP-C) Severe sepsis (Acute) Respiratory failure with hypoxia (Acute) Pneumonia (Acute) Suspected COVID-19 virus infection (Acute) Pancytopenia (Acute) Suspect covid with pancytopenia s/p chemo for lung cancer. Oncology following. D-dimer, ferritin, PCT, CRP, and lactate quite high on admit. Covid neg, cdiff neg, resp pcr panel neg, hep panel neg. With concern for biliary obstruction and possible cholangitis, will order MRCP. Cont vanc/zosyn, continue covid isolation. On hep gtt. Plan on repeating covid in the next few days. Will follow, thank you
--- NOTE | 2019-07-23 16:44 | NURSING ---
Called to lab, relayed to Pawan that CBC drawn at 1330 was drawn at 1530- states he will attempt to change the time
[2019-07-23 16:54] LABS: Platelet Estimate MOD DEC (ADEQ); Red Cell Morphology NORM C+C NORMAL (NORM C&C)
--- NOTE | 2019-07-23 19:35 | CPS ---
decreased O2 to 4 lpm
[2019-07-23 22:28] LABS: Probe Check PASS; SARS-COV-2 DNA by PCR Negative (Negative); Specimen Processing Control PASS
--- NOTE | 2019-07-23 22:51 | NURSING ---
Spoke with Dr Galdamez, let him know the second covid-19 test came back negative asked if he would like to continue the precautions until Dr Elizalde come in, in the morning. Dr Galdamez said it is ok to discontinue the precautions.
--- NOTE | 2019-07-23 23:05 | NURSING ---
report received from Brandi Morales RN. This RN resumed care of patient at this time.
[2019-07-24] VITALS (24 sets, daily range): BP systolic 95–127; BP diastolic 36–95; PULSE 72–110; RESP 11–25; TEMP 36.7–38.2; O2SAT 92–100
[2019-07-24 00:08] LABS: Hematocrit 25.6 % (40-54); Hemoglobin 8.5 g/dL (13.0-16.5)
--- NOTE | 2019-07-24 05:10 | NURSING ---
Dr. Galdamez called into unit, after further reviewing Tonio's note, place patient back in covid precautions until he sees patient today.
[2019-07-24] MEDS: 0.9% Normal Saline 1,000 ML 100 ML IV (06:15)
--- NOTE | 2019-07-24 06:17 | PCM.PN.INT ---
Subjective: The patient was seen and examined at the bedside this morning. Events from the last 24 hours have been reviewed. The patient is currently afebrile, hemodynamically stable and maintaining appropriate oxygen saturations on 3 L/min via nasal cannula. The patient has now been transfused a total of 4 units of packed red blood cells. Blood counts have now stabilized. The patient does continue to report the presence of some abdominal pain. He did have one bloody stool noted overnight. Potassium is low this morning at 2.9. Repeat COVID testing was again negative. Given findings noted on CT abdomen/pelvis, MRCP is currently pending. Objective: The patient's most recent lab work, culture data and imaging studies have all been personally reviewed. Coronavirus PCR was negative. Respiratory viral panel was negative. Strep and urine Legionella antigens were negative. C. difficile and enteric panel was negative. Blood and urine cultures are pending. CT abdomen/pelvis revealed a 3 cm sub-capsular liver mass along with moderate biliary duct dilation and possible gastroenteritis. General: Alert, Oriented x3, Cooperative HEENT: Atraumatic, Normocephalic Oral: No Gingival or Mucosal Lesions/ Ulcerations Neck: Supple, No Nodes, Trachea Midline Lungs: No rhonchi, No wheeze, No rales, Diminished Cardiovascular: Regular rate, Regular Rhythm, Normal S1, Normal S2 Abdomen: Bowel Sounds Present, Soft, Tender Extremities: No clubbing, No cyanosis, No edema Skin: No breakdown Musculoskeletal: No Tenderness to Palpation of Joints or Extremities Neurological: Cranial nerves II-XII grossly intact, Neuro grossly intact Psych/Mental Status: Normal Affect, Appropriate Vital Signs Temp Pulse Resp BP Pulse Ox 98.8 F 74 12 107/47 L 94 07/24/19 05:00 07/24/19 06:00 07/24/19 06:00 07/24/19 06:00 07/24/19 06:00 Oxygen Flow Rate (L/min) 3 Oxygen Delivery Method Nasal Cannula Weight: 160 lb 7.944 oz Body Mass Index (BMI) 20.9 Intake and Output for Last 24 Hours 07/22/19 07/23/19 07/24/19 23:59 23:59 23:59 Intake Total 2550 / 2750 4279.20 / 4279.20 976.67 / 976.67 Output Total 2750 / 2750 Balance 2550 / 2600 1529.20 / 1529.20 976.67 / 976.67 Labs (Last 48 Hours) 07/22/19 07/22/19 07/22/19 17:55 17:55 17:55 WBC 0.5 L* RBC 2.72 L Hgb 8.1 L Hct 26.0 L MCV 95.6 H MCH 29.8 MCHC 31.2 L RDW Std Deviation 46.3 H RDW Coeff of Nevin 13.4 Plt Count 42 L* MPV 9.6 Immature Gran % (Auto) 1.900 H Neut % (Auto) 45.2 L Lymph % (Auto) 34.0 Isabella % (Auto) 17.0 H Eos % (Auto) 1.9 Baso % (Auto) 0.0 Absolute Neuts (auto) 0.2 L Absolute Lymphs (auto) 0.18 L Neutrophils % (Manual) Band Neutrophils % Lymphocytes % (Manual) Monocytes % (Manual) Nucleated RBC % 0 Differential Comment SCANNED Diff Path Review Reviewed Platelet Estimate MKD DEC RBC Morphology PT 37.1 H INR 3.8 H* APTT 52.3 H Fibrinogen D-Dimer Quant (PE/DVT) Specimen Type Sample Site pH Bicarbonate Actual POC Total CO2 Base Excess O2 Saturation ABG pCO2 ABG pO2 O2 Delivery Device Liter Flow Sodium 141 Potassium 3.9 Chloride 105 Carbon Dioxide 25.0 Anion Gap 11 BUN 42 H Creatinine 1.25 Estim Creat Clear Calc 55.77 Est GFR (MDRD) Af Amer 74 Est GFR (MDRD) Non-Af 61 BUN/Creatinine Ratio 33.6 H Glucose 138 H Lactic Acid Calcium 10.0 Phosphorus Magnesium Ferritin Total Bilirubin 2.50 H AST 71 H ALT 109 H Alkaline Phosphatase 475 H Lactate Dehydrogenase Troponin I < 0.015 C-React Prot Ext Range Total Protein 6.5 Albumin 1.7 L Globulin 4.8 H Albumin/Globulin Ratio 0.4 L Procalcitonin Urine Color Urine Clarity Urine pH Ur Specific [place] Urine Protein Urine Glucose (UA) Urine Ketones Urine Occult Blood Urine Nitrite Urine Bilirubin Urine Urobilinogen Ur Leukocyte Esterase Urine RBC Urine WBC Ur Squamous Epith Cells Urine Bacteria Hyaline Casts Urine Mucus COVID-19 (YADY) Hep Bs Antigen Hep Bs Antibody Hepatitis C Antibody MRSA (PCR) Blood Type Antibody Screen Crossmatch 07/22/19 07/22/19 07/22/19 17:55 17:55 18:00 WBC RBC Hgb Hct MCV MCH MCHC RDW Std Deviation RDW Coeff of Nevin Plt Count MPV Immature Gran % (Auto) Neut % (Auto) Lymph % (Auto) Isabella % (Auto) Eos % (Auto) Baso % (Auto) Absolute Neuts (auto) Absolute Lymphs (auto) Neutrophils % (Manual) Band Neutrophils % Lymphocytes % (Manual) Monocytes % (Manual) Nucleated RBC % Differential Comment Diff Path Review Platelet Estimate RBC Morphology PT INR APTT Fibrinogen D-Dimer Quant (PE/DVT) Specimen Type Sample Site pH Bicarbonate Actual POC Total CO2 Base Excess O2 Saturation ABG pCO2 ABG pO2 O2 Delivery Device Liter Flow Sodium Potassium Chloride Carbon Dioxide Anion Gap BUN Creatinine Estim Creat Clear Calc Est GFR (MDRD) Af Amer Est GFR (MDRD) Non-Af BUN/Creatinine Ratio Glucose Lactic Acid 5.4 H* Calcium Phosphorus 3.6 Magnesium 2.0 Ferritin 22239 H Total Bilirubin AST ALT Alkaline Phosphatase Lactate Dehydrogenase 357 H Troponin I C-React Prot Ext Range 293.00 H Total Protein Albumin Globulin Albumin/Globulin Ratio Procalcitonin Urine Color Urine Clarity Urine pH Ur Specific [place] Urine Protein Urine Glucose (UA) Urine Ketones Urine Occult Blood Urine Nitrite Urine Bilirubin Urine Urobilinogen Ur Leukocyte Esterase Urine RBC Urine WBC Ur Squamous Epith Cells Urine Bacteria Hyaline Casts Urine Mucus COVID-19 (YADY) Cancelled Hep Bs Antigen Hep Bs Antibody Hepatitis C Antibody MRSA (PCR) Blood Type Antibody Screen Crossmatch 07/22/19 07/22/19 07/22/19 18:14 21:55 21:55 WBC RBC Hgb Hct MCV MCH MCHC RDW Std Deviation RDW Coeff of Nevin Plt Count MPV Immature Gran % (Auto) Neut % (Auto) Lymph % (Auto) Isabella % (Auto) Eos % (Auto) Baso % (Auto) Absolute Neuts (auto) Absolute Lymphs (auto) Neutrophils % (Manual) Band Neutrophils % Lymphocytes % (Manual) Monocytes % (Manual) Nucleated RBC % Differential Comment Diff Path Review Platelet Estimate RBC Morphology PT INR APTT 50.4 H Fibrinogen D-Dimer Quant (PE/DVT) 2.67 H* Specimen Type ART Sample Site R BRACHIAL pH 7.59 H Bicarbonate Actual 26.4 H POC Total CO2 27 Base Excess 5 H O2 Saturation 99 ABG pCO2 27.4 L ABG pO2 134 H O2 Delivery Device Nasal Can Liter Flow 4.0 Sodium Potassium Chloride Carbon Dioxide Anion Gap BUN Creatinine Estim Creat Clear Calc Est GFR (MDRD) Af Amer Est GFR (MDRD) Non-Af BUN/Creatinine Ratio Glucose Lactic Acid Calcium Phosphorus Magnesium Ferritin Total Bilirubin AST ALT Alkaline Phosphatase Lactate Dehydrogenase Troponin I C-React Prot Ext Range Total Protein Albumin Globulin Albumin/Globulin Ratio Procalcitonin Cancelled Urine Color Urine Clarity Urine pH Ur Specific [place] Urine Protein Urine Glucose (UA) Urine Ketones Urine Occult Blood Urine Nitrite Urine Bilirubin Urine Urobilinogen Ur Leukocyte Esterase Urine RBC Urine WBC Ur Squamous Epith Cells Urine Bacteria Hyaline Casts Urine Mucus COVID-19 (YADY) Hep Bs Antigen Hep Bs Antibody Hepatitis C Antibody MRSA (PCR) Blood Type Antibody Screen Crossmatch 07/22/19 07/22/19 07/22/19 21:55 22:30 22:40 WBC RBC Hgb Hct MCV MCH MCHC RDW Std Deviation RDW Coeff of Nevin Plt Count MPV Immature Gran % (Auto) Neut % (Auto) Lymph % (Auto) Isabella % (Auto) Eos % (Auto) Baso % (Auto) Absolute Neuts (auto) Absolute Lymphs (auto) Neutrophils % (Manual) Band Neutrophils % Lymphocytes % (Manual) Monocytes % (Manual) Nucleated RBC % Differential Comment Diff Path Review Platelet Estimate RBC Morphology PT INR APTT Fibrinogen D-Dimer Quant (PE/DVT) Specimen Type Sample Site pH Bicarbonate Actual POC Total CO2 Base Excess O2 Saturation ABG pCO2 ABG pO2 O2 Delivery Device Liter Flow Sodium Potassium Chloride Carbon Dioxide Anion Gap BUN Creatinine Estim Creat Clear Calc Est GFR (MDRD) Af Amer Est GFR (MDRD) Non-Af BUN/Creatinine Ratio Glucose Lactic Acid 2.2 H* Calcium Phosphorus Magnesium Ferritin Total Bilirubin AST ALT Alkaline Phosphatase Lactate Dehydrogenase Troponin I C-React Prot Ext Range Total Protein Albumin Globulin Albumin/Globulin Ratio Procalcitonin Urine Color [place] Urine Clarity Sl. Cloudy Urine pH 5.0 Ur Specific [place] 1.015 Urine Protein 30 H Urine Glucose (UA) Normal Urine Ketones 5 H Urine Occult Blood 10 H Urine Nitrite Negative Urine Bilirubin 3 H Urine Urobilinogen 1 H Ur Leukocyte Esterase 25 H Urine RBC 0 SEEN Urine WBC 0-5 SEEN Ur Squamous Epith Cells 0 SEEN Urine Bacteria 0 SEEN Hyaline Casts 0-5 SEEN Urine Mucus 0 SEEN COVID-19 (YADY) Hep Bs Antigen Hep Bs Antibody Hepatitis C Antibody MRSA (PCR) Negative Blood Type Antibody Screen Crossmatch 07/22/19 07/23/19 07/23/19 23:40 01:25 02:45 WBC 0.5 L* RBC 2.20 L Hgb 6.6 L Hct 20.5 L MCV 93.2 MCH 30.0 MCHC 32.2 RDW Std Deviation 44.9 H RDW Coeff of Nevin 13.4 Plt Count 31 L* MPV 8.7 Immature Gran % (Auto) MAINTENANCE EQUIPMENT OPERATOR Neut % (Auto) MAINTENANCE EQUIPMENT OPERATOR Lymph % (Auto) MAINTENANCE EQUIPMENT OPERATOR Isabella % (Auto) MAINTENANCE EQUIPMENT OPERATOR Eos % (Auto) MAINTENANCE EQUIPMENT OPERATOR Baso % (Auto) MAINTENANCE EQUIPMENT OPERATOR Absolute Neuts (auto) 0.3 L Absolute Lymphs (auto) 0.19 L Neutrophils % (Manual) 42 L Band Neutrophils % 14 H Lymphocytes % (Manual) 38 Monocytes % (Manual) 6 Nucleated RBC % MAINTENANCE EQUIPMENT OPERATOR Differential Comment Diff Path Review Reviewed Platelet Estimate MKD DEC RBC Morphology PT 43.9 H INR 4.7 H* APTT Fibrinogen D-Dimer Quant (PE/DVT) 2.47 H* Specimen Type Sample Site pH Bicarbonate Actual POC Total CO2 Base Excess O2 Saturation ABG pCO2 ABG pO2 O2 Delivery Device Liter Flow Sodium Potassium Chloride Carbon Dioxide Anion Gap BUN Creatinine Estim Creat Clear Calc Est GFR (MDRD) Af Amer Est GFR (MDRD) Non-Af BUN/Creatinine Ratio Glucose Lactic Acid Calcium Phosphorus Magnesium Ferritin Total Bilirubin AST ALT Alkaline Phosphatase Lactate Dehydrogenase Troponin I C-React Prot Ext Range Total Protein Albumin Globulin Albumin/Globulin Ratio Procalcitonin 5.69 H Urine Color Urine Clarity Urine pH Ur Specific [place] Urine Protein Urine Glucose (UA) Urine Ketones Urine Occult Blood Urine Nitrite Urine Bilirubin Urine Urobilinogen Ur Leukocyte Esterase Urine RBC Urine WBC Ur Squamous Epith Cells Urine Bacteria Hyaline Casts Urine Mucus COVID-19 (YADY) Hep Bs Antigen Hep Bs Antibody Hepatitis C Antibody MRSA (PCR) Blood Type Antibody Screen Crossmatch 07/23/19 07/23/19 07/23/19 02:45 02:45 02:45 WBC RBC Hgb Hct MCV MCH MCHC RDW Std Deviation RDW Coeff of Nevin Plt Count MPV Immature Gran % (Auto) Neut % (Auto) Lymph % (Auto) Isabella % (Auto) Eos % (Auto) Baso % (Auto) Absolute Neuts (auto) Absolute Lymphs (auto) Neutrophils % (Manual) Band Neutrophils % Lymphocytes % (Manual) Monocytes % (Manual) Nucleated RBC % Differential Comment Diff Path Review Platelet Estimate RBC Morphology PT INR APTT Fibrinogen D-Dimer Quant (PE/DVT) Specimen Type Sample Site pH Bicarbonate Actual POC Total CO2 Base Excess O2 Saturation ABG pCO2 ABG pO2 O2 Delivery Device Liter Flow Sodium 143 Potassium 4.0 Chloride 105 Carbon Dioxide 27.0 Anion Gap 11 BUN 58 H Creatinine 1.69 H Estim Creat Clear Calc 42.13 Est GFR (MDRD) Af Amer 52 L Est GFR (MDRD) Non-Af 43 L BUN/Creatinine Ratio 34.3 H Glucose 115 H Lactic Acid Calcium 9.0 Phosphorus Magnesium Ferritin Total Bilirubin 1.90 H AST 53 H ALT 83 H Alkaline Phosphatase 339 H Lactate Dehydrogenase Troponin I C-React Prot Ext Range Total Protein 5.3 L Albumin 1.3 L Globulin 4.0 Albumin/Globulin Ratio 0.3 L Procalcitonin Urine Color Urine Clarity Urine pH Ur Specific [place] Urine Protein Urine Glucose (UA) Urine Ketones Urine Occult Blood Urine Nitrite Urine Bilirubin Urine Urobilinogen Ur Leukocyte Esterase Urine RBC Urine WBC Ur Squamous Epith Cells Urine Bacteria Hyaline Casts Urine Mucus COVID-19 (YADY) Hep Bs Antigen Hep Bs Antibody Hepatitis C Antibody MRSA (PCR) Blood Type O POSITIVE Antibody Screen NEGATIVE Crossmatch See Detail See Detail 07/23/19 07/23/19 07/23/19 04:05 09:45 15:30 WBC 0.4 L* RBC 2.18 L Hgb 6.5 L Hct 19.8 L MCV 90.8 MCH 29.8 MCHC 32.8 RDW Std Deviation 46.9 H RDW Coeff of Nevin 14.4 Plt Count 61 L MPV 9.3 Immature Gran % (Auto) 0.000 Neut % (Auto) 41.4 L Lymph % (Auto) 29.3 Isabella % (Auto) 24.4 H Eos % (Auto) 4.9 Baso % (Auto) 0.0 Absolute Neuts (auto) 0.2 L Absolute Lymphs (auto) 0.12 L Neutrophils % (Manual) Band Neutrophils % Lymphocytes % (Manual) Monocytes % (Manual) Nucleated RBC % 0 Differential Comment Diff Path Review May foll Platelet Estimate MOD DEC RBC Morphology NORM C+C PT INR APTT Fibrinogen 690 H D-Dimer Quant (PE/DVT) Specimen Type Sample Site pH Bicarbonate Actual POC Total CO2 Base Excess O2 Saturation ABG pCO2 ABG pO2 O2 Delivery Device Liter Flow Sodium Potassium Chloride Carbon Dioxide Anion Gap BUN Creatinine Estim Creat Clear Calc Est GFR (MDRD) Af Amer Est GFR (MDRD) Non-Af BUN/Creatinine Ratio Glucose Lactic Acid Calcium Phosphorus Magnesium Ferritin Total Bilirubin AST ALT Alkaline Phosphatase Lactate Dehydrogenase Troponin I C-React Prot Ext Range Total Protein Albumin Globulin Albumin/Globulin Ratio Procalcitonin Urine Color Urine Clarity Urine pH Ur Specific [place] Urine Protein Urine Glucose (UA) Urine Ketones Urine Occult Blood Urine Nitrite Urine Bilirubin Urine Urobilinogen Ur Leukocyte Esterase Urine RBC Urine WBC Ur Squamous Epith Cells Urine Bacteria Hyaline Casts Urine Mucus COVID-19 (YADY) Hep Bs Antigen Non-Reactive Hep Bs Antibody Non-Reactive Hepatitis C Antibody Non-Reactive MRSA (PCR) Blood Type Antibody Screen Crossmatch 07/23/19 07/23/19 07/23/19 19:15 19:15 23:40 WBC RBC Hgb 8.5 L Hct 25.6 L MCV MCH MCHC RDW Std Deviation RDW Coeff of Nevin Plt Count MPV Immature Gran % (Auto) Neut % (Auto) Lymph % (Auto) Isabella % (Auto) Eos % (Auto) Baso % (Auto) Absolute Neuts (auto) Absolute Lymphs (auto) Neutrophils % (Manual) Band Neutrophils % Lymphocytes % (Manual) Monocytes % (Manual) Nucleated RBC % Differential Comment Diff Path Review Platelet Estimate RBC Morphology PT INR APTT Fibrinogen D-Dimer Quant (PE/DVT) Specimen Type Sample Site pH Bicarbonate Actual POC Total CO2 Base Excess O2 Saturation ABG pCO2 ABG pO2 O2 Delivery Device Liter Flow Sodium Potassium Chloride Carbon Dioxide Anion Gap BUN Creatinine Estim Creat Clear Calc Est GFR (MDRD) Af Amer Est GFR (MDRD) Non-Af BUN/Creatinine Ratio Glucose Lactic Acid Calcium Phosphorus Magnesium Ferritin Total Bilirubin AST ALT Alkaline Phosphatase Lactate Dehydrogenase Troponin I C-React Prot Ext Range Total Protein Albumin Globulin Albumin/Globulin Ratio Procalcitonin Urine Color Urine Clarity Urine pH Ur Specific [place] Urine Protein Urine Glucose (UA) Urine Ketones Urine Occult Blood Urine Nitrite Urine Bilirubin Urine Urobilinogen Ur Leukocyte Esterase Urine RBC Urine WBC Ur Squamous Epith Cells Urine Bacteria Hyaline Casts Urine Mucus COVID-19 (YADY) Cancelled Negative Hep Bs Antigen Hep Bs Antibody Hepatitis C Antibody MRSA (PCR) Blood Type Antibody Screen Crossmatch Microbiology 07/23/19 03:25 Stool Enteric Bacteriology - Final 07/22/19 22:10 Mucosa - Nasopharyngeal Respiratory Panel (PCR) - Final 07/23/19 01:20 Stool C. difficile DNA Amplification - Final 07/22/19 22:30 Urine Catheter - Catheter Legionella Antigen - Final 07/22/19 22:30 Urine Catheter - Catheter Streptococcus pneumoniae Antigen (M - Final 07/22/19 18:00 Mucosa - Nasopharyngeal Coronavirus COVID-19 PCR - Final Clinical Impression(s) from Imaging Studies Chest X-Ray 07/22/19 18:30 IMPRESSION: Findings suspicious for viral pneumonia possibly due to covid 19 infection. Clinical correlation recommended Electronically Signed: Dexter Norman MD at 18:50 EDT , Service support , Abdomen Ultrasound 07/23/19 00:06 IMPRESSION: 1. Gallbladder sludge with a positive sonographic Ramsey sign worrisome for acute or chronic cholecystitis. Clinical correlation is recommended. 2. Severe extrahepatic biliary ductal dilatation worrisome for biliary obstruction and correlation with MRCP or ERCP is recommended. 3. 2 x 4 cm hyperechoic mass within the right lobe of liver correlation with liver mass protocol CT is recommended. Electronically Signed: Kevin Light MD at 8:26 EDT Tel , Service support , Abdomen/Pelvis CT 07/23/19 07:30 IMPRESSION: 1. 3 cm mass of the subcapsular posterior segment the right lobe of the liver and correlation with liver mass protocol CT or MRI is recommended. 2. Moderate extrahepatic and intrahepatic biliary ductal dilatation and correlation with MRCP or ERCP is recommended. 3. Mildly dilated fluid-filled small bowel without a definite transition point possibly consistent with gastroenteritis. 4. Hernández catheter. Electronically Signed: Kevin Light MD at 10:47 EDT Tel , Service support , Medical Necessity - Tobacco Use Smoking Status: Former smoker - Patient quit cigarette tobacco usage in 2012 with prior to this 2 pack/day since he had been a teenager. Tobacco Use: Non-smoker Assessment/Plan All Active Problems (Last Reviewed 05/23/19 @ 15:54 by Monica Arriaga NP-C) Severe sepsis (Acute) Respiratory failure with hypoxia (Acute) Pneumonia (Acute) Suspected COVID-19 virus infection (Acute) Pancytopenia (Acute) Obstructive jaundice (Acute) Supraclavicular lymphadenopathy (Acute) Esophageal lesion (Acute) Multiple lung nodules on CT (Acute) Right lower lobe pulmonary nodule (Acute) History of carpal tunnel surgery (Resolved) History of inguinal hernia repair (Resolved) History of appendectomy (Resolved) RECOMMENDATIONS: 1. Stop continuous supplemental IV fluids, given rising sodium and chloride levels. 2. Potassium repletion. Recheck levels in the morning. 3. MRCP as ordered. Consider general surgery consultation. 4. Continue antimicrobial therapy per ID recommendations. 5. Continue to monitor blood counts daily. Continue Granix as ordered. 6. Wean supplemental oxygen to maintain saturations at or above 90%. 7. Continue to hold systemic anticoagulation. IMPRESSIONS: 1. Severe sepsis Clinical concern for possible underlying pulmonary infectious process versus intra-abdominal pathology. The patient has been adequately volume resuscitated. Therefore, I would discontinue supplemental IV fluids on a continuous basis. Given findings noted on CT abdomen, MRCP was ordered. Recommend general surgery consultation as well. Continue antimicrobial therapy per infectious diseases recommendations. 2. Acute hypoxemic respiratory failure Improving. Again, likely related to underlying pulmonary infectious process coupled with recent diagnosis of pulmonary embolism. However, the patient is not currently a candidate for systemic anticoagulation, given his lower GI bleeding. Wean supplemental oxygen as tolerated. 3. Recent diagnosis of pulmonary embolism The patient was diagnosed with pulmonary emboli on July 16. He was subsequently placed on Eliquis, which was held on admission to the ICU. The patient was initially placed on a continuous heparin infusion, which was later discontinued after he developed lower GI bleeding. Plan to obtain lower extremity Doppler studies, should IVC filter placement be required in the future. 4. History of metastatic non-small cell carcinoma Prognosis is overall poor. The patient was just recently started on a combination of chemo and immunotherapy. If the patient does not begin to stabilize clinically, may need to consider hospice referral. 5. Pancytopenia/coagulopathy Likely secondary to recent chemotherapy initiation coupled with possible DIC. Continue Granix as ordered. Transfuse additional platelets today. 6. Acute kidney injury Improved. Likely secondary to ATN in the setting of #1. Continue to monitor urine output. No current indication for renal replacement therapy. 7. Abdominal pain/nausea/vomiting Concern for cholecystitis based on abdominal imaging studies with possible biliary obstruction. MRCP was ordered. General surgery consultation is pending. 8. History of alcohol and tobacco dependency/obstructive sleep apnea/hypertension/hyperlipidemia Complicates care, management, recovery and prognosis. Continue home medications as indicated. This note was generated with [employer] dictation software. It may contain incorrect words, spelling, and punctuation that were not noted in checking the note before signing. Inpatient E&M: [address] [facility] L[facility]
[2019-07-24 06:23] LABS: Hematocrit 25.2 % (40-54); Hemoglobin 8.4 g/dL (13.0-16.5); Mean Corp Hgb Conc 33.3 g/dL (32-36); Mean Corpuscular Hgb 29.6 pg (27.0-32.0); Mean Corpuscular Volume 88.7 fL (80-94); POSITIVE COUNT YES; POSITIVE DIFFERENTIAL YES; POSITIVE MORPHOLOGY YES; RBC Distribution Width CV 15.7 % (11.6-14.6); RBC Distribution Width SD 50.3 fl (35.1-43.9); Red Blood Count 2.84 M/mm3 (4.6-6.2)
[2019-07-24 06:25] LABS: White Blood Count 0.5 K/mm3 (4.4-11.0)
[2019-07-24 06:26] LABS: Differential Indicated MANUAL DIFF; Platelet Count 40 K/mm3 (150-450)
[2019-07-24 06:37] LABS: ALB/GLOB Ratio 0.3 RATIO (0.9-2.4); AST(SGOT) 39 U/L (15-37); Alanine Aminotransfer ALT/SGPT 58 U/L (16-61); Albumin, Serum 1.3 g/dL (3.2-5.0); Alkaline Phosphatase 240 U/L (45-117); Anion Gap 8 (5-15); BUN 41 mg/dL (7-18); BUN/Creat Ratio 37.3 RATIO (10-20); Calcium,Total 8.8 mg/dL (8.5-10.1); Chloride 116 mmol/L (98-107); EST Glomerular Filtration Rate 71 mL/min (>60); Est Glom Filt Rate - Afr Amer 85 mL/min (>60); Estimated Creatinine Clearance 66.52 ml/min; Globulin 3.8 g/dL (2.2-4.2); Glucose 74 mg/dL (74-106); Potassium 2.9 mmol/L (3.5-5.1); Protein, Total 5.1 g/dL (6.4-8.2); Sodium Level 147 mmol/L (136-145)
[2019-07-24 06:46] LABS: Lymphocyte 42 % (19-41); Metamyelocyte 8 % (0-1); Monocyte 6 % (0-10); Neutrophil-Band 4 % (0-5); Neutrophil-Segmented 46 % (47-70); Total Cells Counted 100 (MANUAL DIFF)
[2019-07-24 06:47] LABS: Absolute Lymphocyte Count 0.21 X10^3/uL (0.83-4.51); Absolute Neutrophil Count 0.3 X10^3/uL (2.0-7.7); Atypical Lymphocyte 1+ %; Lymphocyte # 0.21 X10^3/ul (4.0); Monocyte# 0.03 X10^3/uL; Neutrophil # 0.26 X10^3/uL (2.7-7.7)
[2019-07-24 06:48] LABS: Platelet Estimate MKD DEC (ADEQ)
[2019-07-24 07:03] LABS: Vancomycin, Trough Level 14.1 ug/mL (5.0-15.0)
--- NOTE | 2019-07-24 07:21 | PN_ITS ---
Patient Problems: Active and Suspected Problems (Last Reviewed 05/23/19 @ 15:54 by Monica Arriaga NP-C) Severe sepsis (Acute) Respiratory failure with hypoxia (Acute) Pneumonia (Acute) Suspected COVID-19 virus infection (Acute) Pancytopenia (Acute) Reason for Visit: Follow-up respiratory failure Subjective: Patient seen still remains significantly frail. Repeat COVID testing came back negative. Patient scheduled to undergo MRCP Objective: GENERAL: cooperative HEENT: Atraumatic; EYES; Anicteric, Normal Conjunctiva NECK; supple, normal thyroid, RESPIRATORY: Diminished to auscultation CARDIOVASCULAR: Regular S1 S2, GI: soft, normoactive bowel sounds, : No Renal angle tenderness; EXTREMITIES: No edema, no clubbing, MUSCULOSKELETAL: no muscle waisting NEURO: Awake; no lateralizing signs. SKIN: No Rash PSYCH; Flat affect Vitals/I&O's: Vital Signs Temp Pulse Resp BP Pulse Ox 98.8 F 74 12 107/47 L 94 07/24/19 05:00 07/24/19 06:00 07/24/19 06:00 07/24/19 06:00 07/24/19 06:00 Oxygen Flow Rate (L/min) 3 Oxygen Delivery Method Nasal Cannula Weight: 74.2 kg Body Mass Index (BMI) 20.9 Intake and Output for Last 24 Hours 07/22/19 07/23/19 07/24/19 23:59 23:59 23:59 Intake Total 2550 / 2750 4279.20 / 4279.20 1076.67 / 1076.67 Output Total 2750 / 2750 1200 / 1200 Balance 2550 / 2600 1529.20 / 1529.20 -123.33 / -123.33 Microbiology Past 72 Hours 07/23/19 03:25 Stool Enteric Bacteriology - Final 07/22/19 22:10 Mucosa - Nasopharyngeal Respiratory Panel (PCR) - Final 07/23/19 01:20 Stool C. difficile DNA Amplification - Final 07/22/19 22:30 Urine Catheter - Catheter Legionella Antigen - Final 07/22/19 22:30 Urine Catheter - Catheter Streptococcus pneumoniae Antigen (M - Final 07/22/19 18:00 Mucosa - Nasopharyngeal Coronavirus COVID-19 PCR - Final Laboratory Results 07/22/19 17:55: Diff Path Review Reviewed 07/22/19 18:14: Specimen Type ART, Sample Site R BRACHIAL, O2 Delivery Device Nasal Can, Liter Flow 4.0 07/23/19 01:25: Diff Path Review Reviewed 07/23/19 02:45: Blood Type O POSITIVE, Antibody Screen NEGATIVE, Crossmatch See Detail 07/23/19 02:45: Crossmatch See Detail 07/23/19 04:05: Hep Bs Antigen Non-Reactive, Hep Bs Antibody Non-Reactive, Hepatitis C Antibody Non-Reactive 07/23/19 09:45: Fibrinogen 690 H 07/23/19 15:30: WBC 0.4 L*, RBC 2.18 L, Hgb 6.5 L, Hct 19.8 L, MCV 90.8, MCH 29.8, MCHC 32.8, RDW Std Deviation 46.9 H, RDW Coeff of Nevin 14.4, Plt Count 61 L , MPV 9.3, Immature Gran % (Auto) 0.000, Neut % (Auto) 41.4 L, Lymph % (Auto) 29.3, [place] % (Auto) 24.4 H, Eos % (Auto) 4.9, Baso % (Auto) 0.0, Absolute Neuts (auto) 0.2 L, Absolute Lymphs (auto) 0.12 L, Nucleated RBC % 0, Differential Comment , Diff Path Review May foll, Platelet Estimate MOD DEC, RBC Morphology NORM C+C 07/23/19 19:15: COVID-19 (YADY) Cancelled 07/23/19 19:15: COVID-19 (YADY) Negative 07/23/19 23:40: Hgb 8.5 L, Hct 25.6 L 07/24/19 06:10: Vancomycin Trough 14.1 07/24/19 06:10: WBC 0.5 L*, RBC 2.84 L, Hgb 8.4 L, Hct 25.2 L, MCV 88.7, MCH 29.6, MCHC 33.3, RDW Std Deviation 50.3 H, RDW Coeff of Nevin 15.7 H, Plt Count 40 L*, MPV 10.0, Neut % (Auto) Not Reportable, Absolute Neuts (auto) 0.3 L, Absolute Lymphs (auto) 0.21 L, Total Counted 100, Neutrophils % (Manual) 46 L, Band Neutrophils % 4, Lymphocytes % (Manual) 42 H, Monocytes % (Manual) 6, Metamyelocytes % 8 H, Diff Path Review May foll, Atypical Lymphocytes 1+, Platelet Estimate MKD 07/24/19 06:10: Sodium 147 H, Potassium 2.9 L, Chloride 116 H, Carbon Dioxide 23.0, Anion Gap 8, BUN 41 H, Creatinine 1.10, Estim Creat Clear Calc 66.52, Est GFR (MDRD) Af Amer 85, Est GFR (MDRD) Non-Af 71, BUN/Creatinine Ratio 37.3 H, Glucose 74, Calcium 8.8, Magnesium 2.0, Total Bilirubin 1.80 H, AST 39 H, ALT 58, Alkaline Phosphatase 240 H, Total Protein 5.1 L, Albumin 1.3 L, Globulin 3.8, Albumin/Globulin Ratio 0.3 L Current Medications Acetaminophen (Tylenol) 650 mg PO Q6H PRN PRN PRN Reason: Pain Score 1-10/Temp > 100.7 F Al Hydroxide/Mg Hydroxide (Mylanta Ii) 30 ml PO Q6H PRN PRN PRN Reason: Gastric Burning Albuterol Sulfate (Ventolin Aerosols) 2.5 mg INHALATION Q2H PRN PRN PRN Reason: Dyspnea, wheezing Dextrose (D50w Syringe) 0 gm IV X1 PRN; Protocol PRN Reason: Hypoglycemia Glucagon () 1 mg IM .X1 PRN PRN Reason: Hypoglycemia Guaifenesin (Robitussin) 10 ml PO Q4H PRN PRN PRN Reason: COUGH Heparin Sodium (Porcine) (Heparin Na) 0 unit IV UD PRN; Protocol Hydralazine HCl (Apresoline Iv) 10 mg IV Q4H PRN PRN PRN Reason: SBP > 160 Vancomycin IV Pharmacy to Dose (1 ea/ Sodium Chloride) 500 mls @ 250 mls/hr IV PRN PRN; Protocol PRN Reason: Rx to Dose Piperacillin Sod/Tazobactam (Sod 3.375 gm/ Sodium Chloride) 50 mls @ 12.5 m ls/hr IV Q8@0200,1000,1800 [place] Last Infusion: 07/24/19 05:35 Dose: Infused Documented by: Sodium Chloride () 250 mls @ 15 mls/hr IV .[id number] PRN PRN Reason: Saline Flush Last Infusion: 05/20/20 22:55 Dose: 15 mls/hr Documented by: Sodium Chloride () 250 mls @ 15 mls/hr IV .[id number] PRN PRN Reason: Additional IVPB Infusion Vancomycin HCl 750 mg/ Sodium (Chloride) 265 mls @ 250 mls/hr IV Q12H [facility], [facility] Last Infusion: 07/23/19 21:01 Dose: Infused Documented by: Pantoprazole Sodium 40 mg/ (Sodium Chloride) 110 mls @ 330 mls/hr IV Q12 [facility], [facility] Last Infusion: 07/23/19 22:55 Dose: Infused Documented by: Potassium Chloride () 10 meq in 100 mls @ 100 mls/hr IV BOLUS Q1H [facility], [facility]1983 Stop: 07/24/19 10:59 Magnesium Hydroxide (Milk Of Magnesia) 30 ml PO DAILY PRN PRN PRN Reason: Constipation Nitroglycerin (Nitrostat) 0.4 mg SUBLINGUAL Q5M PRN PRN Reason: CARDIAC/CHEST PAIN Ondansetron HCl (Zofran) 4 mg IV Q8H PRN PRN PRN Reason: NAUSEA/VOMITING Oxycodone HCl (Oxyir) 10 mg PO Q4H PRN PRN PRN Reason: Pain Score 4-5/10 Last Admin: 07/23/19 23:53 Dose: 10 mg Documented by: Prochlorperazine Edisylate (Compazine Iv) 5 mg IV Q4H PRN PRN PRN Reason: Breakthrough Nausea/Vomiting Psyllium Hydrophilic Mucilloid (Metamucil) 1 packet PO DAILY PRN PRN PRN Reason: Constipation Senna/Docusate Sodium (Senokot-S, Elisabeth-Colace) 2 tablet PO BID PRN PRN PRN Reason: Constipation Sodium Chloride () 10 - 40 ml IV UD PRN PRN Reason: SALINE FLUSH Last Admin: 07/22/19 21:57 Dose: 20 ml Documented by: Tbo-Filgrastim (Granix) 300 mcg SC DAILY [facility], [facility] Last Admin: 07/23/19 14:02 Dose: 300 mcg Documented by: Throat Lozenges (Cepacol Sore Throat Lozenge) 1 lozenge MUCOUS MEM Q2H PRN PRN PRN Reason: SORE THROAT STROKE Vital Signs/Narrative: Vital Signs Temp Pulse Resp BP Pulse Ox 07/24/19 06:00 74 12 107/47 L 94 07/24/19 05:00 98.8 F 84 13 111/46 L 97 07/24/19 04:00 99.1 F 73 15 104/44 L 95 Medical Necessity - Tobacco Use Smoking Status: Former smoker - Patient quit cigarette tobacco usage in 2012 with prior to this 2 pack/day since he had been a teenager. Tobacco Use: Non-smoker Assessment/Plan All Active Problems (Last Reviewed 05/23/19 @ 15:54 by Monica Arriaga NP-C) Severe sepsis (Acute) Respiratory failure with hypoxia (Acute) Pneumonia (Acute) Suspected COVID-19 virus infection (Acute) Pancytopenia (Acute) Supraclavicular lymphadenopathy (Acute) Esophageal lesion (Acute) Multiple lung nodules on CT (Acute) Right lower lobe pulmonary nodule (Acute) History of carpal tunnel surgery (Resolved) History of inguinal hernia repair (Resolved) History of appendectomy (Resolved) Patient is a 69-year-old gentleman with history of non-small cell lung CA currently on chemo brought to the emergency department with progressive shortness of breath 1. Severe sepsis ?imaging studies obtained on admission demonstrated features suspicious for viral pneumonia possibly COVID 19. Admitted to intensive care unit patient placed on supplemental oxygen as well as broad-spectrum antibiotic therapy with Zosyn and vancomycin. Consult was placed to infectious disease ?07/24/2019 patient still appears ill looking. Repeat COVID testing came back negative however ID advised for patient to be kept in isolation 2. Acute hypoxic respiratory failure ?Secondary to above patient is on supplemental oxygen 3. Suspected viral pneumonia rule out COVID 19 infection ?Management as discussed above 4. Acute kidney injury ?On IV fluids. Patient kidney function actually did worsen following his admission 5. Recent diagnosis of acute pulmonary embolism ?Patient was started on Eliquis apparently did develop epistaxis leading to cauterization 6. Abnormal abdominal ultrasound. ?Ultrasound demonstrated Gallbladder sludge with a positive sonographic Ramsey sign worrisome for acute or chronic cholecystitis.. Patient was also noted to have Severe extrahepatic biliary ductal dilatation worrisome for biliary obstruction and correlation with MRCP or ERCP is recommended.. Plan is to consult general surgery once COVID 19 infection has been ruled out. ?07/24/2019 patient is scheduled to undergo MRCP for subsequent management consult placed to general surgery 7. Non-small cell lung CA ?Patient has been managed by Dr. Cervantes as outpatient 8. Pancytopenia ?Secondary to patient malignancy. Patient currently being transfused 1 unit PRBC as well as platelet transfusion 9. COPD ?aerosol treatment as needed 10. Essential hypertension ~ blood pressure controlled, home medications continued with dose adjustment as needed 11. Dyslipidemia ~patient is on statin therapy, continued at home dose Clinical Impression(s) from Imaging Studies Chest X-Ray 07/22/19 18:30 IMPRESSION: Findings suspicious for viral pneumonia possibly due to covid 19 infection. Clinical correlation recommended Electronically Signed: Dexter Norman MD at 18:50 EDT , Service support , Abdomen Ultrasound 07/23/19 00:06 IMPRESSION: 1. Gallbladder sludge with a positive sonographic Ramsey sign worrisome for acute or chronic cholecystitis. Clinical correlation is recommended. 2. Severe extrahepatic biliary ductal dilatation worrisome for biliary obstruction and correlation with MRCP or ERCP is recommended. 3. 2 x 4 cm hyperechoic mass within the right lobe of liver correlation with liver mass protocol CT is recommended. Electronically Signed: Kevin Light MD at 8:26 EDT Tel , Service support , Abdomen/Pelvis CT 07/23/19 07:30 IMPRESSION: 1. 3 cm mass of the subcapsular posterior segment the right lobe of the liver and correlation with liver mass protocol CT or MRI is recommended. 2. Moderate extrahepatic and intrahepatic biliary ductal dilatation and correlation with MRCP or ERCP is recommended. 3. Mildly dilated fluid-filled small bowel without a definite transition point possibly consistent with gastroenteritis. 4. Hernández catheter. Electronically Signed: Kevin Light MD at 10:47 EDT Tel , Service support , Active Medications Acetaminophen (Tylenol) 650 mg PO Q6H PRN PRN PRN Reason: Pain Score 1-10/Temp > 100.7 F Al Hydroxide/Mg Hydroxide (Mylanta Ii) 30 ml PO Q6H PRN PRN PRN Reason: Gastric Burning Albuterol Sulfate (Ventolin Aerosols) 2.5 mg INHALATION Q2H PRN PRN PRN Reason: Dyspnea, wheezing Albuterol/Ipratropium (Duoneb) 3 ml INHALATION Q4HWA.RT [facility], [facility] Last Admin: 07/22/19 22:15 Dose: Not Given Documented by: Dextrose (D50w Syringe) 0 gm IV X1 PRN; Protocol PRN Reason: Hypoglycemia Glucagon () 1 mg IM .X1 PRN PRN Reason: Hypoglycemia Guaifenesin (Robitussin) 10 ml PO Q4H PRN PRN PRN Reason: COUGH Heparin Sodium (Porcine) (Heparin Na) 0 unit IV UD PRN; Protocol Hydralazine HCl (Apresoline Iv) 10 mg IV Q4H PRN PRN PRN Reason: SBP > 160 Sodium Chloride () 1,000 mls @ 100 mls/hr IV .Q10H [facility], [facility] Last Infusion: 07/23/19 08:00 Dose: 0 mls/hr Documented by: Vancomycin IV Pharmacy to Dose (1 ea/ Sodium Chloride) 500 mls @ 250 mls/hr IV PRN PRN; Protocol PRN Reason: Rx to Dose Piperacillin Sod/Tazobactam (Sod 3.375 gm/ Sodium Chloride) 50 mls @ 12.5 mls/hr IV Q8@0200,1000,1800 [facility] Last Admin: 07/23/19 09:33 Dose: 12.5 mls/hr Documented by: Sodium Chloride () 250 mls @ 15 mls/hr IV .[id number] PRN PRN Reason: Saline Flush Last Infusion: 07/23/19 08:00 Dose: 0 mls/hr Documented by: Sodium Chloride () 250 mls @ 15 mls/hr IV .[id number] PRN PRN Reason: Additional IVPB Infusion Vancomycin HCl 750 mg/ Sodium (Chloride) 265 mls @ 250 mls/hr IV Q12H [facility] Last Infusion: 07/23/19 09:18 Dose: Infused Documented by: Pantoprazole Sodium 40 mg/ (Sodium Chloride) 110 mls @ 330 mls/hr IV Q12 [facility] Magnesium Hydroxide (Milk Of Magnesia) 30 ml PO DAILY PRN PRN PRN Reason: Constipation Nitroglycerin (Nitrostat) 0.4 mg SUBLINGUAL Q5M PRN PRN Reason: CARDIAC/CHEST PAIN Ondansetron HCl (Zofran) 4 mg IV Q8H PRN PRN PRN Reason: NAUSEA/VOMITING Oxycodone HCl (Oxyir) 10 mg PO Q4H PRN PRN PRN Reason: Pain Score 4-5/10 Prochlorperazine Edisylate (Compazine Iv) 5 mg IV Q4H PRN PRN PRN Reason: Breakthrough Nausea/Vomiting Psyllium Hydrophilic Mucilloid (Metamucil) 1 packet PO DAILY PRN PRN PRN Reason: Constipation Senna/Docusate Sodium (Senokot-S, Elisabeth-Colace) 2 tablet PO BID PRN PRN PRN Reason: Constipation Sodium Chloride () 10 - 40 ml IV UD PRN PRN Reason: SALINE FLUSH Last Admin: 07/22/19 21:57 Dose: 20 ml Documented by: Throat Lozenges (Cepacol Sore Throat Lozenge) 1 lozenge MUCOUS MEM Q2H PRN PRN PRN Reason: SORE THROAT Inpatient E&M: [id number] [facility] Hosp L3
--- NOTE | 2019-07-24 08:32 | PCM.RX.CS ---
Consult Pharmacy has been consulted to manage selected antiobiotic: Vancomycin Type of Consult: Follow-up Suspected Infection: Pneumonia Prior Doses of Antibiotics Received/Current Regimen: Vancomycin 750mg IV given 07/22 @ 1956 and 0814 Labs: Sodium 147 mmol/L (136-145) H 07/24/19 06:10 Potassium 2.9 mmol/L (3.5-5.1) L 07/24/19 06:10 Chloride 116 mmol/L (98-107) H 07/24/19 06:10 Carbon Dioxide 23.0 mmol/L (21.0-32.0) 07/24/19 06:10 Anion Gap 8 (5-15) 07/24/19 06:10 BUN 41 mg/dL (7-18) H 07/24/19 06:10 Creatinine 1.10 mg/dL (0.70-1.30) 07/24/19 06:10 Est GFR (MDRD) Af Amer 85 mL/min (>60) 07/24/19 06:10 Est GFR (MDRD) Non-Af 71 mL/min (>60) 07/24/19 06:10 BUN/Creatinine Ratio 37.3 RATIO (10-20) H 07/24/19 06:10 Glucose 74 mg/dL (74-106) 07/24/19 06:10 Vancomycin Trough 14.1 ug/mL (5.0-15.0) 07/24/19 06:10 Microbiology: Microbiology 07/23/19 03:25 Stool Enteric Bacteriology - Final 07/22/19 22:10 Mucosa - Nasopharyngeal Respiratory Panel (PCR) - Final 07/23/19 01:20 Stool C. difficile DNA Amplification - Final 07/22/19 22:30 Urine Catheter - Catheter Legionella Antigen - Final 07/22/19 22:30 Urine Catheter - Catheter Streptococcus pneumoniae Antigen (M - Final 07/22/19 18:00 Mucosa - Nasopharyngeal Coronavirus COVID-19 PCR - Final Estimated Creatinine Clearance: 66 Goal Trough: 15-20 mcg/mL Pharmacy Plan for Drug Dosin. 10 hour trough came back subtherapeutic at 14.1mg/dL (goal 15-20). Trough drawn slightly early so true trough likely lower than 14.1. 2. Will increase to 1000mg Q12H starting this morning d/t subtherapeutic trough and improved CrCl. 3. Trough ordered prior to 4th dose of new regimen. 4. Pharmacy Service will continue to monitor and adjust dosing as required. Labs to be done on [date and time ordered]: 07/25/19 @ 2030
[2019-07-24] MEDS: Potassium Chloride 10mEq/100mL 10 MEQ/100 ML IV.SOLN. 100 MEQ IV BOLUS (08:50)
[2019-07-24 09:03] LABS: International Normalized Ratio 2.1; Prothrombin Time (Protime)PT. 23.2 SECONDS (11.7-14.9)
--- NOTE | 2019-07-24 09:39 | VDLE_ITS ---
Reason For Study: SOB RIGHT LEFT CFV, FV, POP V, T/P Trunk, PTV, Peroneal V, CFV, FV, POP V, T/P Trunk, PTV, Peroneal V, and GSV are compressible. and GSV are compressible. Soleus V is dilated and noncompressible. Procedure Exam performed portable in ICU/CCU. The exam was abbreviated due to the COVID 19 protocol. The exam was diagnostic. A preliminary report was called and/or faxed to the pt's RN. Interpretation Summary Acute deep venous thrombosis right soleus vein. No evidence for acute deep venous thrombosis left lower extremity Patent and compressible bilateral great saphenous veins Abbreviated Covid-19 protocol Ordering Physician: Harmeet Galdamez Performed By: Johnnie Haji RVT
--- NOTE | 2019-07-24 10:00 | MRI_ITS ---
STUDY: MR OF THE ABDOMEN AND MRCP WITHOUT CONTRAST REASON FOR EXAM: Male, 69 years old patient with new liver mass and possible biliary obstruction. Patient has elevated LFTs and abdominal pain. Past medical history of non small cell lung cancer. TECHNIQUE: Standardized fat and water weighted pulse sequences were obtained in all 3 orthogonal planes. Standard MRCP technique was utilized.. 3-D MIP images are included. COMPARISON: CT of the abdomen and pelvis dated July 23, 2019. FINDINGS: There is bilateral basilar dependent atelectasis versus mild airspace consolidation. There are small bilateral pleural effusions. The visualized portions of the heart are within normal limits. There is a mass within the right lobe of liver , probably segment 6 that measures approximately 3.4 cm in greatest dimension. This is bright on the T2-weighted images. There is a smaller nodule caudal to this that measures approximately 10 mm in greatest dimension. These nodules exhibit restricted diffusion. The liver otherwise has a grossly normal appearance. Gall Bladder: There appear to be multiple gallstones. The gallbladder is distended. The gallbladder wall is within normal limits. Cystic duct: Cystic duct was not well visualized. Intrahepatic ducts: There is mild prominence of intrahepatic biliary ducts. The patient to be some periportal infiltration with abnormal signal surrounding the portal areas particularly in the left lobe of liver but also within the right lobe of the liver. This could represent additional metastatic disease. Common hepatic duct: There appears to be mild dilatation of the common hepatic duct which measures up to 10.5 mm in greatest transverse dimension. Common bile duct: The common bile duct also appears to be mildly dilated measuring up to 8.6 mm. Pancreatic duct: Normal with no demonstrated fixed filling defect, dilation or stricture. Normal spleen. There is diffuse atrophy of the pancreas. Normal bilateral adrenal glands. Normal right kidney. Normal left kidney. Normal visualized stomach. There is no evidence for dilated bowel. The small bowel has a grossly normal appearance. The visualized colon is not dilated. There is non-visualization of the appendix. Normal abdominal aorta. Normal inferior vena cava. Normal retroperitoneum. Normal abdominal wall. There is abnormal signal throughout the marrow suggesting metastatic disease. These bony lesions appear to exhibit restricted diffusion. MRI/MRCP Abdomen without Contrast IMPRESSION: 1. Two right-sided hepatic nodules may represent metastasis. 2. Possible infiltrative metastatic disease within the liver. 3. Multiple skeletal metastasis. 4. Dilated extrahepatic biliary ducts with cholelithiasis. There is no definite choledocholithiasis currently. 5. Small pleural effusions and bilateral basilar dependent atelectasis. Electronically Signed: Peg Rodriguez MD at 3:18 EDT , Service support ,
[2019-07-24] MEDS: Potassium Chloride 10mEq/100mL 10 MEQ/100 ML IV.SOLN. 50 MEQ IV BOLUS ×3 (10:03→17:27)
[2019-07-24] MEDS: Vancomycin IV 1,000 MG/200 ML BAG 200 MG IV ×2 (10:04→20:52)
--- NOTE | 2019-07-24 10:22 | PCM.PN.ID ---
Patient Problems: Active and Suspected Problems (Last Reviewed 05/23/19 @ 15:54 by Monica Arriaga NP-Brenda) Severe sepsis (Acute) Respiratory failure with hypoxia (Acute) Pneumonia (Acute) Suspected COVID-19 virus infection (Acute) Pancytopenia (Acute) Subjective: Feeling better, no fever overnight, still some abd pain and dyspnea. No sore throat. - Physical Exam Vitals/I&O's: Vital Signs Temp Pulse Resp BP Pulse Ox 98.1 F 79 11 L 95/50 L 100 07/24/19 08:00 07/24/19 10:00 07/24/19 10:00 07/24/19 10:00 07/24/19 10:00 Oxygen Flow Rate (L/min) 3 Oxygen Delivery Method Nasal Cannula Weight: 74.2 kg Body Mass Index (BMI) 20.9 Intake and Output for Last 24 Hours 07/22/19 07/23/19 07/24/19 23:59 23:59 23:59 Intake Total 2550 / 2750 4279.20 / 4279.20 1555.50 / 1555.50 Output Total 2750 / 2750 1200 / 1200 Balance 2550 / 2600 1529.20 / 1529.20 355.50 / 355.50 General: Alert, Cooperative, No apparent distress Lungs: Diminished Cardiovascular: Regular rate, Regular Rhythm Abdomen: Soft, Non Tender, Non-Distended Skin: No rashes Microbiology Past 72 Hours 07/22/19 22:36 Urine, Random Urine Culture - Preliminary Culture exhibits no growth. 07/23/19 03:25 Stool Enteric Bacteriology - Final 07/22/19 22:10 Mucosa - Nasopharyngeal Respiratory Panel (PCR) - Final 07/23/19 01:20 Stool C. difficile DNA Amplification - Final 07/22/19 22:30 Urine Catheter - Catheter Legionella Antigen - Final 07/22/19 22:30 Urine Catheter - Catheter Streptococcus pneumoniae Antigen (M - Final 07/22/19 18:00 Mucosa - Nasopharyngeal Coronavirus COVID-19 PCR - Final Laboratory Results 07/22/19 17:55: Diff Path Review Reviewed 07/23/19 01:25: Diff Path Review Reviewed 07/23/19 02:45: Blood Type O POSITIVE, Antibody Screen NEGATIVE, Crossmatch See Detail 07/23/19 02:45: Crossmatch See Detail 07/23/19 15:30: WBC 0.4 L*, RBC 2.18 L, Hgb 6.5 L, Hct 19.8 L, MCV 90.8, MCH 29.8, MCHC 32.8, RDW Std Deviation 46.9 H, RDW Coeff of Nevin 14.4, Plt Count 61 L, MPV 9.3, Immature Gran % (Auto) 0.000, Neut % (Auto) 41.4 L, Lymph % (Auto) 29.3, Chase % (Auto) 24.4 H, Eos % (Auto) 4.9, Baso % (Auto) 0.0, Absolute Neuts (auto) 0.2 L, Absolute Lymphs (auto) 0.12 L, Nucleated RBC % 0, Differential Comment , Diff Path Review July buzz, Platelet Estimate MOD FEB, RBC Morphology NORM C+C 07/23/19 19:15: COVID-19 (YADY) Cancelled 07/23/19 19:15: COVID-19 (YADY) Negative 07/23/19 23:40: Hgb 8.5 L, Hct 25.6 L 07/24/19 06:10: Vancomycin Trough 14.1 07/24/19 06:10: WBC 0.5 L*, RBC 2.84 L, Hgb 8.4 L, Hct 25.2 L, MCV 88.7, MCH 29.6, MCHC 33.3, RDW Std Deviation 50.3 H, RDW Coeff of Nevin 15.7 H, Plt Count 40 L*, MPV 10.0, Neut % (Auto) Not Reportable, Absolute Neuts (auto) 0.3 L, Absolute Lymphs (auto) 0.21 L, Total Counted 100, Neutrophils % (Manual) 46 L, Band Neutrophils % 4, Lymphocytes % (Manual) 42 H, Monocytes % (Manual) 6, Metamyelocytes % 8 H, Diff Path Review May buzz, Atypical Lymphocytes 1+, Platelet Estimate MKD DEC 07/24/19 06:10: Sodium 147 H, Potassium 2.9 L, Chloride 116 H, Carbon Dioxide 23.0, Anion Gap 8, BUN 41 H, Creatinine 1.10, Estim Creat Clear Calc 66.52, Est GFR (MDRD) Af Amer 85, Est GFR (MDRD) Non-Af 71, BUN/Creatinine Ratio 37.3 H, Glucose 74, Calcium 8.8, Magnesium 2.0, Total Bilirubin 1.80 H, AST 39 H, ALT 58, Alkaline Phosphatase 240 H, Total Protein 5.1 L, Albumin 1.3 L, Globulin 3.8, Albumin/Globulin Ratio 0.3 L 07/24/19 08:40: PT 23.2 H, INR 2.1 Current Medications Acetaminophen (Tylenol) 650 mg PO Q6H PRN PRN PRN Reason: Pain Score 1-10/Temp > 100.7 F Al Hydroxide/Mg Hydroxide (Mylanta Ii) 30 ml PO Q6H PRN PRN PRN Reason: Gastric Burning Albuterol Sulfate (Ventolin Aerosols) 2.5 mg INHALATION Q2H PRN PRN PRN Reason: Dyspnea, wheezing Dextrose (D50w Syringe) 0 gm IV X1 PRN; Protocol PRN Reason: Hypoglycemia Glucagon () 1 mg IM .X1 PRN PRN Reason: Hypoglycemia Guaifenesin (Robitussin) 10 ml PO Q4H PRN PRN PRN Reason: COUGH Hydralazine HCl (Apresoline Iv) 10 mg IV Q4H PRN PRN PRN Reason: SBP > 160 Vancomycin IV Pharmacy to Dose (1 ea/ Sodium Chloride) 500 mls @ 250 mls/hr IV PRN PRN; Protocol PRN Reason: Rx to Dose Piperacillin Sod/Tazobactam (Sod 3.375 gm/ Sodium Chloride) 50 mls @ 12.5 mls/hr IV Q8@0200,1000,1800 [facility] Last Infusion: 07/24/19 05:35 Dose: Infused Documented by: Sodium Chloride () 250 mls @ 15 mls/hr IV .[id number] PRN PRN Reason: Saline Flush Last Infusion: 07/24/19 10:07 Dose: 0 mls/hr Documented by: Sodium Chloride () 250 mls @ 15 mls/hr IV .[id number] PRN PRN Reason: Additional IVPB Infusion Pantoprazole Sodium 40 mg/ (Sodium Chloride) 110 mls @ 330 mls/hr IV Q12 [facility] Last Infusion: 07/23/19 22:55 Dose: Infused Documented by: Potassium Chloride () 10 meq in 100 mls @ 100 mls/hr IV BOLUS Q1H [facility] Stop: 07/24/19 10:59 Last Admin: 07/24/19 10:03 Dose: 50 mls/hr Documented by: Vancomycin HCl (Vancomycin) 1,000 mg in 200 mls @ 200 mls/hr IV Q12H [facility] Last Admin: 07/24/19 10:04 Dose: 200 mls/hr Documented by: Magnesium Hydroxide (Milk Of Magnesia) 30 ml PO DAILY PRN PRN PRN Reason: Constipation Nitroglycerin (Nitrostat) 0.4 mg SUBLINGUAL Q5M PRN PRN Reason: CARDIAC/CHEST PAIN Ondansetron HCl (Zofran) 4 mg IV Q8H PRN PRN PRN Reason: NAUSEA/VOMITING Oxycodone HCl (Oxyir) 10 mg PO Q4H PRN PRN PRN Reason: Pain Score 4-5/10 Last Admin: 07/23/19 23:53 Dose: 10 mg Documented by: Prochlorperazine Edisylate (Compazine Iv) 5 mg IV Q4H PRN PRN PRN Reason: Breakthrough Nausea/Vomiting Psyllium Hydrophilic Mucilloid (Metamucil) 1 packet PO DAILY PRN PRN PRN Reason: Constipation Senna/Docusate Sodium (Senokot-S, Elisabeth-Colace) 2 tablet PO BID PRN PRN PRN Reason: Constipation Sodium Chloride () 10 - 40 ml IV UD PRN PRN Reason: SALINE FLUSH Last Admin: 07/22/19 21:57 Dose: 20 ml Documented by: Tbo-Filgrastim (Granix) 300 mcg SC DAILY [facility] Last Admin: 07/23/19 14:02 Dose: 300 mcg Documented by: Throat Lozenges (Cepacol Sore Throat Lozenge) 1 lozenge MUCOUS MEM Q2H PRN PRN PRN Reason: SORE THROAT Medical Necessity - Tobacco Use Smoking Status: Former smoker - Patient quit cigarette tobacco usage in 2013 with prior to this 2 pack/day since he had been a teenager. Tobacco Use: Non-smoker Route of nutrition/ use of supplements: [] Nutritional Intake: [] IV Site: [] Hernández Catheter: [] - Assessment/Plan Antibiotics: [] Assessment/Plan: [] Active and Suspected Problems (Last Reviewed 05/23/19 @ 15:54 by Monica Arriaga NP-C) Severe sepsis (Acute) Respiratory failure with hypoxia (Acute) Pneumonia (Acute) Suspected COVID-19 virus infection (Acute) Pancytopenia (Acute) Suspect covid with pancytopenia s/p chemo for lung cancer. Oncology following. D-dimer, ferritin, PCT, CRP, and lactate quite high on admit. Covid neg, cdiff neg, resp pcr panel neg, hep panel neg. With concern for biliary obstruction and possible cholangitis, pending MRCP. Cont vanc/zosyn, continue covid isolation. On hep gtt. Will check covid serology. Will follow, d/w Dr. Galdamez
--- NOTE | 2019-07-24 10:47 | CASEMGMT ---
Addendum entered by Kun Mckee 07/24/19 14:14: Called [facility]- updated pt is in hospital and phone meeting had been scheduled for tomorrow. This was for Palliative Care Referral and will be rescheduled when pt goes home. CARLOTA Wyatt updated. Grant VIEIRA Addendum entered by Kun Mckee 07/24/19 12:55: Pt is @ procedure, will discuss home health with . Call to . She feels pt may benefit from HHC, but would like CM to speak with patient. is also concerned over pt not being able to eat prior to admission. HARRISON CARRIZALES let know cm will discuss home health with him when he is available to speak on phone. Original Note: HARRISON CARRIZALES Note: attempted to call to patient's room. Pt did not answer phone. Will attempt again later. Grant DEJESUS
[2019-07-24 11:59] LABS: Pathologist Review Reviewed
[2019-07-24 12:01] LABS: Pathologist Review Reviewed
[2019-07-24] MEDS: TBO-FILGRASTIM 300 MCG/0.5 ML ML SC (12:35)
[2019-07-24] MEDS: Acetaminophen 325 MG Tablet 650 MG PO (16:39)
[2019-07-24] MEDS: oxyCODONE 5 MG Tablet 10 MG PO (19:57)
[2019-07-25] VITALS: BP 109/45; PULSE 92; RESP 17; TEMP 37.6; O2SAT 97
[2019-07-25] MEDS: oxyCODONE 5 MG Tablet 10 MG PO ×2 (00:37→05:48)
[2019-07-25 03:01] VITALS: PULSE 101
[2019-07-25] MEDS: Ondansetron 4 MG/2 ML Vial IV (03:12)
[2019-07-25] MEDS: 0.9% Saline Lock 10 ML Syringe IV (03:12)
[2019-07-25 03:49] LABS: Hematocrit 25.4 % (40-54); Hemoglobin 8.4 g/dL (13.0-16.5); Mean Corp Hgb Conc 33.1 g/dL (32-36); Mean Corpuscular Hgb 29.4 pg (27.0-32.0); Mean Corpuscular Volume 88.8 fL (80-94); Mean Platelet Vol. 9.9 fl (6.2-12.0); POSITIVE COUNT YES; POSITIVE DIFFERENTIAL YES; POSITIVE MORPHOLOGY YES; RBC Distribution Width CV 15.4 % (11.6-14.6); RBC Distribution Width SD 50.3 fl (35.1-43.9); Red Blood Count 2.86 M/mm3 (4.6-6.2)
[2019-07-25 03:59] LABS: Differential Indicated MANUAL DIFF; Platelet Count 34 K/mm3 (150-450)
[2019-07-25 04:00] VITALS: BP 109/43; PULSE 99; RESP 20; TEMP 37.7; O2SAT 100
[2019-07-25 04:09] LABS: ALB/GLOB Ratio 0.3 RATIO (0.9-2.4); AST(SGOT) 92 U/L (15-37); Alanine Aminotransfer ALT/SGPT 89 U/L (16-61); Albumin, Serum 1.4 g/dL (3.2-5.0); Alkaline Phosphatase 821 U/L (45-117); Anion Gap 6 (5-15); BUN 23 mg/dL (7-18); BUN/Creat Ratio 26.2 RATIO (10-20); Calcium,Total 9.8 mg/dL (8.5-10.1); Chloride 115 mmol/L (98-107); Creatinine, Serum 0.88 mg/dL (0.70-1.30); EST Glomerular Filtration Rate 91 mL/min (>60); Est Glom Filt Rate - Afr Amer 111 mL/min (>60); Globulin 4.2 g/dL (2.2-4.2); Glucose 87 mg/dL (74-106); Protein, Total 5.6 g/dL (6.4-8.2); Sodium Level 146 mmol/L (136-145)
[2019-07-25 04:34] LABS: Lymphocyte 22 % (19-41); Monocyte 2 % (0-10); Neutrophil-Band 22 % (0-5); Total Cells Counted 100 (MANUAL DIFF)
[2019-07-25 04:35] LABS: Absolute Neutrophil Count 0.7 X10^3/uL (2.0-7.7); Neutrophil-Segmented 52 % (47-70)
[2019-07-25 04:36] LABS: Absolute Lymphocyte Count 0.21 X10^3/uL (0.83-4.51); Lymphocyte # 0.21 X10^3/ul (4.0); Monocyte# 0.02 X10^3/uL; Platelet Estimate MKD DEC (ADEQ)
[2019-07-25 06:46] LABS: Magnesium 1.9 mg/dL (1.6-2.6)
--- NOTE | 2019-07-25 07:23 | PN_ITS ---
Patient Problems: Active and Suspected Problems (Last Reviewed 05/23/19 @ 15:54 by Monica Arriaga NP-C) Severe sepsis (Acute) Respiratory failure with hypoxia (Acute) Pneumonia (Acute) Suspected COVID-19 virus infection (Acute) Pancytopenia (Acute) Obstructive jaundice (Acute) Reason for Visit: Severe sepsis Subjective: Plan was for patient to have undergone cholecystectomy tube he however elected not to proceed with the procedure and instead opted for hospice. Consult subsequently placed to case management Objective: GENERAL: cooperative HEENT: Atraumatic; EYES; Anicteric, Normal Conjunctiva NECK; supple, normal thyroid, RESPIRATORY: Diminished to auscultation CARDIOVASCULAR: Regular S1 S2, GI: soft, normoactive bowel sounds, : No Renal angle tenderness; EXTREMITIES: No edema, no clubbing, MUSCULOSKELETAL: no muscle waisting NEURO: Awake; no lateralizing signs. SKIN: No Rash PSYCH; Flat affect Vitals/I&O's: Vital Signs Temp Pulse Resp BP Pulse Ox 99.8 F H 99 20 H 109/43 L 100 07/25/19 04:00 07/25/19 04:00 07/25/19 04:00 07/25/19 04:00 07/25/19 04:00 Oxygen Flow Rate (L/min) 3 Oxygen Delivery Method Nasal Cannula Weight: 74.6 kg Body Mass Index (BMI) 20.9 Intake and Output for Last 24 Hours 07/23/19 07/24/19 07/25/19 23:59 23:59 23:59 Intake Total 4279.20 / 4279.20 3135.50 / 3135.50 277.5 / 277.5 Output Total 2750 / 2750 3300 / 3300 650 / 650 Balance 1529.20 / 1529.20 -164.50 / -164.50 -372.5 / -372.5 Microbiology Past 72 Hours 07/22/19 22:36 Urine, Random Urine Culture - Preliminary Culture exhibits no growth. 07/23/19 03:25 Stool Enteric Bacteriology - Final 07/22/19 22:10 Mucosa - Nasopharyngeal Respiratory Panel (PCR) - Final 07/23/19 01:20 Stool C. difficile DNA Amplification - Final 07/22/19 22:30 Urine Catheter - Catheter Legionella Antigen - Final 07/22/19 22:30 Urine Catheter - Catheter Streptococcus pneumoniae Antigen (M - Final 07/22/19 18:00 Mucosa - Nasopharyngeal Coronavirus COVID-19 PCR - Final Laboratory Results 07/23/19 02:45: Crossmatch See Detail 07/23/19 15:30: Diff Path Review Reviewed 07/24/19 06:10: Diff Path Review Reviewed 07/24/19 08:40: PT 23.2 H, INR 2.1 07/25/19 03:30: WBC 1.0 L*, RBC 2.86 L, Hgb 8.4 L, Hct 25.4 L, MCV 88.8, MCH 29.4, MCHC 33.1, RDW Std Deviation 50.3 H, RDW Coeff of Nevin 15.4 H, Plt Count 34 L*, MPV 9.9, Neut % (Auto) Not Reportable, Absolute Neuts (auto) 0.7 L, Absolute Lymphs (auto) 0.21 L, Total Counted 100, Neutrophils % (Manual) 52, Band Neutrophils % 22 H, Lymphocytes % (Manual) 22, Monocytes % (Manual) 2, Diff Path Review May foll, Platelet Estimate MKD 07/25/19 03:30: Sodium 146 H, Potassium 3.0 L, Chloride 115 H, Carbon Dioxide 25.0, Anion Gap 6, BUN 23 H, Creatinine 0.88, Estim Creat Clear Calc 83.60, Est GFR (MDRD) Af Amer 111, Est GFR (MDRD) Non-Af 91, BUN/Creatinine Ratio 26.2 H, Glucose 87, Calcium 9.8, Total Bilirubin 2.70 H, AST 92 H, ALT 89 H, Alkaline Phosphatase 821 H, Total Protein 5.6 L, Albumin 1.4 L, Globulin 4.2, Albumin/Globulin Ratio 0.3 L 07/25/19 03:30: SARS-CoV-2 IgG Ab Pending, SARS-CoV-2 IgM Ab Pending 07/25/19 03:30: Magnesium 1.9 Current Medications Acetaminophen (Tylenol) 650 mg PO Q6H PRN PRN PRN Reason: Pain Score 1-10/Temp > 100.7 F Last Admin: 07/24/19 16:39 Dose: 650 mg Documented by: Al Hydroxide/Mg Hydroxide (Mylanta Ii) 30 ml PO Q6H PRN PRN PRN Reason: Gastric Burning Albuterol Sulfate (Ventolin Aerosols) 2.5 mg INHALATION Q2H PRN PRN PRN Reason: Dyspnea, wheezing Dextrose (D50w Syringe) 0 gm IV X1 PRN; Protocol PRN Reason: Hypoglycemia Glucagon () 1 mg IM .X1 PRN PRN Reason: Hypoglycemia Guaifenesin (Robitussin) 10 ml PO Q4H PRN PRN PRN Reason: COUGH Hydralazine HCl (Apresoline Iv) 10 mg IV Q4H PRN PRN PRN Reason: SBP > 160 Vancomycin IV Pharmacy to Dose (1 ea/ Sodium Chloride) 500 mls @ 250 mls/hr IV PRN PRN; Protocol PRN Reason: Rx to Dose Piperacillin Sod/Tazobactam (Sod 3.375 gm/ Sodium Chloride) 50 mls @ 12.5 mls/hr IV Q8@0200,1000,1800 [facility] Last Admin: 07/25/19 02:42 Dose: 12.5 mls/hr Documented by: Sodium Chloride () 250 mls @ 15 mls/hr IV .[id number] PRN PRN Reason: Saline Flush Last Infusion: 07/25/19 02:00 Dose: 0 mls/hr Documented by: Sodium Chloride () 250 mls @ 15 mls/hr IV .[id number] PRN PRN Reason: Additional IVPB Infusion Pantoprazole Sodium 40 mg/ (Sodium Chloride) 110 mls @ 330 mls/hr IV Q12 [facility] Last Infusion: 07/24/19 22:50 Dose: Infused Documented by: Vancomycin HCl (Vancomycin) 1,000 mg in 200 mls @ 200 mls/hr IV Q12H [facility] Last Infusion: 07/24/19 21:52 Dose: Infused Documented by: Magnesium Hydroxide (Milk Of Magnesia) 30 ml PO DAILY PRN PRN PRN Reason: Constipation Nitroglycerin (Nitrostat) 0.4 mg SUBLINGUAL Q5M PRN PRN Reason: CARDIAC/CHEST PAIN Ondansetron HCl (Zofran) 4 mg IV Q8H PRN PRN PRN Reason: NAUSEA/VOMITING Last Admin: 07/25/19 03:12 Dose: 4 mg Documented by: Oxycodone HCl (Oxyir) 10 mg PO Q4H PRN PRN PRN Reason: Pain Score 4-5/10 Last Admin: 07/25/19 05:48 Dose: 10 mg Documented by: Potassium Chloride (K-Dur) 40 meq PO BIDCM [facility] Stop: 07/25/19 17:01 Last Admin: 07/25/19 05:48 Dose: 40 meq Documented by: Prochlorperazine Edisylate (Compazine Iv) 5 mg IV Q4H PRN PRN PRN Reason: Breakthrough Nausea/Vomiting Psyllium Hydrophilic Mucilloid (Metamucil) 1 packet PO DAILY PRN PRN PRN Reason: Constipation Senna/Docusate Sodium (Senokot-S, Elisabeth-Colace) 2 tablet PO BID PRN PRN PRN Reason: Constipation Sodium Chloride () 10 - 40 ml IV UD PRN PRN Reason: SALINE FLUSH Last Admin: 07/25/19 03:12 Dose: 20 ml Documented by: Tbo-Filgrastim (Granix) 300 mcg SC DAILY [facility] Last Admin: 07/24/19 12:35 Dose: 300 mcg Documented by: Throat Lozenges (Cepacol Sore Throat Lozenge) 1 lozenge MUCOUS MEM Q2H PRN PRN PRN Reason: SORE THROAT STROKE Vital Signs/Narrative: Vital Signs Temp Pulse Resp BP Pulse Ox 07/25/19 04:00 99.8 F H 99 20 H 109/43 L 100 Medical Necessity - Tobacco Use Smoking Status: Former smoker - Patient quit cigarette tobacco usage in 2012 with prior to this 2 pack/day since he had been a teenager. Tobacco Use: Non-smoker Assessment/Plan All Active Problems (Last Reviewed 05/23/19 @ 15:54 by Monica Arriaga NP-C) Severe sepsis (Acute) Respiratory failure with hypoxia (Acute) Pneumonia (Acute) Suspected COVID-19 virus infection (Acute) Pancytopenia (Acute) Obstructive jaundice (Acute) Supraclavicular lymphadenopathy (Acute) Esophageal lesion (Acute) Multiple lung nodules on CT (Acute) Right lower lobe pulmonary nodule (Acute) History of carpal tunnel surgery (Resolved) History of inguinal hernia repair (Resolved) History of appendectomy (Resolved) Patient is a 69-year-old gentleman with history of non-small cell lung CA currently on chemo brought to the emergency department with progressive shortness of breath 1. Severe sepsis ?imaging studies obtained on admission demonstrated features suspicious for viral pneumonia possibly COVID 19. Admitted to intensive care unit patient placed on supplemental oxygen as well as broad-spectrum antibiotic therapy with Zosyn and vancomycin. Consult was placed to infectious disease ?07/24/2019 patient still appears ill looking. Repeat COVID testing came back negative however ID advised for patient to be kept in isolation 2. Acute hypoxic respiratory failure ?Secondary to above patient is on supplemental oxygen 3. Suspected viral pneumonia rule out COVID 19 infection ?Management as discussed above 4. Acute kidney injury ?On IV fluids. Patient kidney function actually did worsen following his admission 5. Recent diagnosis of acute pulmonary embolism ?Patient was started on Eliquis apparently did develop epistaxis leading to cauterization 6. acute on chronic cholecystitis ?Ultrasound demonstrated Gallbladder sludge with a positive sonographic Ramsey sign worrisome for acute or chronic cholecystitis.. Patient was also noted to have Severe extrahepatic biliary ductal dilatation worrisome for biliary obstruction and correlation with MRCP or ERCP is recommended.. Plan is to consult general surgery once COVID 19 infection has been ruled out. ?07/24/2019 patient is scheduled to undergo MRCP for subsequent management consult placed to general surgery -07/25/2019 Plan was for patient to have undergone cholecystectomy tube he however elected not to proceed with the procedure and instead opted for hospice. Consult subsequently placed to case management 7. Non-small cell lung CA ?Patient has been managed by Dr. Cervantes as outpatient 8. Pancytopenia ?Secondary to patient malignancy. Patient currently being transfused 1 unit PRBC as well as platelet transfusion 9. COPD ?aerosol treatment as needed 10. Essential hypertension ~ blood pressure controlled, home medications continued with dose adjustment as needed 11. Dyslipidemia ~patient is on statin therapy, continued at home dose 12. Physical deconditioning -Secondary to multiple comorbidities above. Consult placed to case management. Plan is for patient to be transferred to hospice care after evaluation Inpatient E&M: [id number] Subs Hosp L2
--- NOTE | 2019-07-25 07:51 | CON.PCM_ITS ---
Problem List (1) Obstructive jaundice Status: Acute (2) Severe sepsis Status: Acute (3) Pancytopenia Status: Acute Reason for Consult Date of Consultation: 07/25/19 History of Present Illness: The patient is a 69 year old M is in the ICU with sepsis. The patient has a history of lung cancer with metastasis. The patient was recently started on chemotherapy. The patient is also been having a GI bleed but he has been having abdominal pain. He is not having any nausea or vomiting. Pain has worsened today. Past Medical History Past Medical History (Chronic Problems): Chronic Problems (Last Reviewed 05/23/19 @ 15:54 by WOODY Webb) Non-small cell lung cancer (Chronic) Bronchiectasis (Chronic) RLL Former smoker (Chronic) Hyperlipidemia (Chronic) JOSE DAVID (obstructive sleep apnea) (Chronic) Macrocytosis (Chronic) Inguinal hernia (Chronic) Chronic obstructive lung disease (Chronic) Hypertensive disorder (Chronic) Alcoholism (Chronic) No intake since 03/2019. History of tobacco abuse (Chronic) Continuous chronic alcoholism (Chronic) Medical History: Medical History (Last Reviewed 05/23/19 @ 15:54 by WOODY Webb) Former smoker (Chronic) Z87.891 Hyperlipidemia (Chronic) E78.5 JOSE DAVID (obstructive sleep apnea) (Chronic) G47.33 Macrocytosis (Chronic) D75.89 Inguinal hernia (Chronic) K40.90 Chronic obstructive lung disease (Chronic) J44.9 Hypertensive disorder (Chronic) I10 Alcoholism (Chronic) F10.20 No intake since 03/2019. Allergies No Known Allergies Allergy (Verified 07/21/19 12:13) Home Medications: Ambulatory Orders Medication Instructions Recorded multivitamin 1 tab PO DAILY 01/20/19 atorvastatin 10 mg tablet 10 mg PO QHS 01/21/19 Azithromycin [Zithromax Z-Cortez] 250 mg PO UD #1 box 07/17/19 Oxycodone [Oxyir] 5 - 10 mg PO Q6H PRN PRN 07/17/19 Apixaban [Eliquis] 5 - 10 mg PO BID 07/22/19 Dexamethasone [Decadron] 4 mg PO BIDCM 07/22/19 Ondansetron HCl [Zofran] 8 mg PO Q8H PRN PRN 07/22/19 Surgical History: Surgical History (Last Reviewed 05/23/19 @ 15:54 by WOODY Webb) History of carpal tunnel surgery (Resolved) Z98.890 History of inguinal hernia repair (Resolved) Z98.890, Z87.19 History of appendectomy (Resolved) Z90.49 History of colonoscopy Onset Date: ~2013 Z98.890 Surgical History: herniorrhaphy, - - Vasectomy, appendectomy, left inguinal hernia repair, bilateral hand surgery, bilateral carpal tunnel surgery. Psychiatric History: No pertinent psych hx Lives: Spouse/ Significant Other Smoking Status: Former smoker - Patient quit cigarette tobacco usage in 2012 with prior to this 2 pack/day since he had been a teenager. Tobacco Use: Non-smoker Alcohol: Heavy - Patient had been drinking considerable amount of beer however he has not been drinking since March. Drugs: None - *Family History Maternal Family History: Family History (Last Reviewed 05/23/19 @ 15:54 by WOODY Webb) Father Hypertension Cancer CVA (cerebral vascular accident) Mother Heart disease History Items: Heart Disease - Maternal family history of heart disease, pacemaker status. Paternal Family History: Family History (Last Reviewed 05/23/19 @ 15:54 by WOODY Webb) Father Hypertension Cancer CVA (cerebral vascular accident) Mother Heart disease History Items: Cancer - Father with history of prostate cancer., High Cholesterol, Hypertension, Stroke Review of Systems Constitutional: Reports: Anorexia. Denies: Fever HEENT: Denies: Difficulty Swallowing Respiratory: Denies: Cough Gastrointestinal: Reports: Abdominal Pain, Hematochezia. Denies: Constipation, Diarrhea, Nausea, Vomiting Musculoskeletal: Reports: Back Pain Skin: Denies: Jaundice Hematologic/ Lymphatic: Reports: Anemia, Hx of blood clot Patient Problems: Active and Suspected Problems (Last Reviewed 05/23/19 @ 15:54 by WOODY Webb) Severe sepsis (Acute) Respiratory failure with hypoxia (Acute) Pneumonia (Acute) Suspected COVID-19 virus infection (Acute) Pancytopenia (Acute) Obstructive jaundice (Acute) - Physical Exam Vitals/I&O's: Vital Signs Temp Pulse Resp BP Pulse Ox 99.8 F H 99 20 H 109/43 L 100 07/25/19 04:00 07/25/19 04:00 07/25/19 04:00 07/25/19 04:00 07/25/19 04:00 Oxygen Flow Rate (L/min) 3 Oxygen Delivery Method Nasal Cannula Weight: 164 lb 7.437 oz Body Mass Index (BMI) 20.9 Intake and Output for Last 24 Hours 07/23/19 07/24/19 07/25/19 23:59 23:59 23:59 Intake Total 4279.20 / 4279.20 3135.50 / 3135.50 277.5 / 277.5 Output Total 2750 / 2750 3300 / 3300 650 / 650 Balance 1529.20 / 1529.20 -164.50 / -164.50 -372.5 / -372.5 General: Alert, Oriented x3, Cooperative Neck: No JVD Lungs: Normal air movement Cardiovascular: Regular Rhythm, Tachycardic Abdomen: Soft, Non-Distended, Tender Skin: No rashes Musculoskeletal: No Muscle Wasting Neurological: Cranial nerves II-XII grossly intact Psych/Mental Status: Normal Affect Microbiology Past 72 Hours 07/22/19 22:36 Urine, Random Urine Culture - Preliminary Culture exhibits no growth. 07/23/19 03:25 Stool Enteric Bacteriology - Final 07/22/19 22:10 Mucosa - Nasopharyngeal Respiratory Panel (PCR) - Final 07/23/19 01:20 Stool C. difficile DNA Amplification - Final 07/22/19 22:30 Urine Catheter - Catheter Legionella Antigen - Final 07/22/19 22:30 Urine Catheter - Catheter Streptococcus pneumoniae Antigen (M - Final 07/22/19 18:00 Mucosa - Nasopharyngeal Coronavirus COVID-19 PCR - Final Laboratory Results 07/23/19 02:45: Crossmatch See Detail 07/23/19 15:30: Diff Path Review Reviewed 07/24/19 06:10: Diff Path Review Reviewed 07/24/19 08:40: PT 23.2 H, INR 2.1 07/25/19 03:30: WBC 1.0 L*, RBC 2.86 L, Hgb 8.4 L, Hct 25.4 L, MCV 88.8, MCH 29.4, MCHC 33.1, RDW Std Deviation 50.3 H, RDW Coeff of Nevin 15.4 H, Plt Count 34 L*, MPV 9.9, Neut % (Auto) Not Reportable, Absolute Neuts (auto) 0.7 L, Absolute Lymphs (auto) 0.21 L, Total Counted 100, Neutrophils % (Manual) 52, Band Neutrophils % 22 H, Lymphocytes % (Manual) 22, Monocytes % (Manual) 2, Diff Path Review July foll, Platelet Estimate MKD 07/25/19 03:30: Sodium 146 H, Potassium 3.0 L, Chloride 115 H, Carbon Dioxide 25.0, Anion Gap 6, BUN 23 H, Creatinine 0.88, Estim Creat Clear Calc 83.60, Est GFR (MDRD) Af Amer 111, Est GFR (MDRD) Non-Af 91, BUN/Creatinine Ratio 26.2 H, Glucose 87, Calcium 9.8, Total Bilirubin 2.70 H, AST 92 H, ALT 89 H, Alkaline Phosphatase 821 H, Total Protein 5.6 L, Albumin 1.4 L, Globulin 4.2, Albumin/Globulin Ratio 0.3 L 07/25/19 03:30: SARS-CoV-2 IgG Ab Pending, SARS-CoV-2 IgM Ab Pending 07/25/19 03:30: Magnesium 1.9 Clinical Impression(s) from Imaging Studies Chest X-Ray 07/22/19 18:30 IMPRESSION: Findings suspicious for viral pneumonia possibly due to covid 19 infection. Clinical correlation recommended Electronically Signed: Dexter Norman MD at 18:50 EDT , Service support , Abdomen Ultrasound 07/23/19 00:06 IMPRESSION: 1. Gallbladder sludge with a positive sonographic Ramsey sign worrisome for acute or chronic cholecystitis. Clinical correlation is recommended. 2. Severe extrahepatic biliary ductal dilatation worrisome for biliary obstruction and correlation with MRCP or ERCP is recommended. 3. 2 x 4 cm hyperechoic mass within the right lobe of liver correlation with liver mass protocol CT is recommended. Electronically Signed: Kevin Light MD at 8:26 EDT Tel , Service support , Abdomen/Pelvis CT 07/23/19 07:30 IMPRESSION: 1. 3 cm mass of the subcapsular posterior segment the right lobe of the liver and correlation with liver mass protocol CT or MRI is recommended. 2. Moderate extrahepatic and intrahepatic biliary ductal dilatation and correlation with MRCP or ERCP is recommended. 3. Mildly dilated fluid-filled small bowel without a definite transition point possibly consistent with gastroenteritis. 4. Hernández catheter. Electronically Signed: Kevin Light MD at 10:47 EDT Tel , Service support , MRCP 07/24/19 10:00 IMPRESSION: 1. Two right-sided hepatic nodules may represent metastasis. 2. Possible infiltrative metastatic disease within the liver. 3. Multiple skeletal metastasis. 4. Dilated extrahepatic biliary ducts with cholelithiasis. There is no definite choledocholithiasis currently. 5. Small pleural effusions and bilateral basilar dependent atelectasis. Electronically Signed: Peg Rodriguez MD at 3:18 EDT , Service support , Current Medications Acetaminophen (Tylenol) 650 mg PO Q6H PRN PRN PRN Reason: Pain Score 1-10/Temp > 100.7 F Last Admin: 07/24/19 16:39 Dose: 650 mg Documented by: Al Hydroxide/Mg Hydroxide (Mylanta Ii) 30 ml PO Q6H PRN PRN PRN Reason: Gastric Burning Albuterol Sulfate (Ventolin Aerosols) 2.5 mg INHALATION Q2H PRN PRN PRN Reason: Dyspnea, wheezing Dextrose (D50w Syringe) 0 gm IV X1 PRN; Protocol PRN Reason: Hypoglycemia Glucagon () 1 mg IM .X1 PRN PRN Reason: Hypoglycemia Guaifenesin (Robitussin) 10 ml PO Q4H PRN PRN PRN Reason: COUGH Hydralazine HCl (Apresoline Iv) 10 mg IV Q4H PRN PRN PRN Reason: SBP > 160 Vancomycin IV Pharmacy to Dose (1 ea/ Sodium Chloride) 500 mls @ 250 mls/hr IV PRN PRN; Protocol PRN Reason: Rx to Dose Piperacillin Sod/Tazobactam (Sod 3.375 gm/ Sodium Chloride) 50 mls @ 12.5 mls/hr IV Q8@0200,1000,1800 [facility] Last Admin: 07/25/19 02:42 Dose: 12.5 mls/hr Documented by: Sodium Chloride () 250 mls @ 15 mls/hr IV .[id number] PRN PRN Reason: Saline Flush Last Infusion: 07/25/19 02:00 Dose: 0 mls/hr Documented by: Sodium Chloride () 250 mls @ 15 mls/hr IV .[id number] PRN PRN Reason: Additional IVPB Infusion Pantoprazole Sodium 40 mg/ (Sodium Chloride) 110 mls @ 330 mls/hr IV Q12 [facility] Last Infusion: 07/24/19 22:50 Dose: Infused Documented by: Vancomycin HCl (Vancomycin) 1,000 mg in 200 mls @ 200 mls/hr IV Q12H [facility] Last Infusion: 07/24/19 21:52 Dose: Infused Documented by: Magnesium Hydroxide (Milk Of Magnesia) 30 ml PO DAILY PRN PRN PRN Reason: Constipation Morphine Sulfate () 2 - 4 mg IV Q4H PRN PRN PRN Reason: Pain Score 6-10/10 Morphine Sulfate () 2 - 4 mg IV Q4H PRN PRN PRN Reason: Pain Score 6-10/10 Nitroglycerin (Nitrostat) 0.4 mg SUBLINGUAL Q5M PRN PRN Reason: CARDIAC/CHEST PAIN Ondansetron HCl (Zofran) 4 mg IV Q8H PRN PRN PRN Reason: NAUSEA/VOMITING Last Admin: 07/25/19 03:12 Dose: 4 mg Documented by: Potassium [facility]Dur) [facility] Stop: 07/25/19 17:01 Last Admin: 07/25/19 05:48 Dose: 40 meq Documented by: Prochlorperazine Edisylate (Compazine Iv) 5 mg IV Q4H PRN PRN PRN Reason: Breakthrough Nausea/Vomiting Psyllium Hydrophilic Mucilloid (Metamucil) 1 packet PO DAILY PRN PRN PRN Reason: Constipation Senna/Docusate Sodium (Senokot-S, Elisabeth-Colace) 2 tablet PO BID PRN PRN PRN Reason: Constipation Sodium Chloride () 10 - 40 ml IV UD PRN PRN Reason: SALINE FLUSH Last Admin: 07/25/19 03:12 Dose: 20 ml Documented by: Tbo-Filgrastim (Granix) 300 mcg SC DAILY [facility] Last Admin: 07/24/19 12:35 Dose: 300 mcg Documented by: Throat Lozenges (Cepacol Sore Throat Lozenge) 1 lozenge MUCOUS MEM Q2H PRN PRN PRN Reason: SORE THROAT Assessment/Plan All Active Problems (Last Reviewed 05/23/19 @ 15:54 by Monica Arriaga, DYAN-C) Severe sepsis (Acute) Respiratory failure with hypoxia (Acute) Pneumonia (Acute) Suspected COVID-19 virus infection (Acute) Pancytopenia (Acute) Obstructive jaundice (Acute) Supraclavicular lymphadenopathy (Acute) Esophageal lesion (Acute) Multiple lung nodules on CT (Acute) Right lower lobe pulmonary nodule (Acute) History of carpal tunnel surgery (Resolved) History of inguinal hernia repair (Resolved) History of appendectomy (Resolved) 69-year-old male with obstructive jaundice and sepsis 1. The patient had MRCP yesterday which shows biliary dilation as well as gallstones with dilation of the gallbladder. The patient does not show any obvious choledocholithiasis. It does not show an obvious mass causing obstruction either. There is a mass in the liver. The patient is pancytopenic despite platelet and FFP transfusions. The patient has not had any bleeding since yesterday. 2. I saw the patient this morning with Dr. Galdamez. The patient is still in isolation due to suspected COVID despite negative testing. I discussed with Dr. Galdamez and the patient that this patient's pancytopenia and sepsis may be due to his gallbladder. He is not a surgical candidate at this time. I recommended and discussed a bedside cholecystostomy tube with the patient. I informed him that this would be palliative in nature and he would be very high risk for bleeding. If his pancytopenia is due to sepsis due to his gallbladder the only possible treatment would be source control and drainage. The patient elected for hospice after this discussion so that he may see his family. I did discuss the risk of bleeding and fulminant septic shock with him once more but he would like to become hospice DNR CC. Gm Harris MD Pager: [facility] [address] [place] [address], [address] [place] [address] Office:
[2019-07-25 08:00] VITALS: BP 116/60; PULSE 92; RESP 18; TEMP 37.1; O2SAT 96
--- NOTE | 2019-07-25 08:06 | PCM.PN.INT ---
Subjective: The patient was seen and examined at the bedside this morning. Events from the last 24 hours have been reviewed. The patient currently has a low-grade fever but remains hemodynamically stable. He is maintaining appropriate oxygen saturations on 3 L/min. The patient reports increasing abdominal pain this morning along with a significant amount of pain in his back. I spoke with Dr. Harris this morning regarding the patient's MRCP results. In light of the findings, consideration was given to possible percutaneous Cholecystostomy tube placement. However, the patient would be high risk for the procedure given his current coagulopathy and pancytopenia. Both Dr. Harris and I spoke to the patient regarding these findings at the bedside this morning. Following a discussion regarding the risks and benefits of the procedure, the patient reported to us that he wanted to forego the procedure and instead focus on his comfort, with plans for hospice care referral. A short time later, the patient was evaluated by Dr. Hammer of oncology. Following his discussion with the patient, he apparently had changed his mind and was now wishing to proceed with percutaneous cholecystostomy tube placement. UPDATE: Dr. Harris presented to the floor once again to discuss the procedure with the patient. Following a discussion with the patient and clarification of goals, the patient reported that he did not want to proceed with percutaneous cholecystostomy tube placement and instead wish to be referred to hospice care services. I personally called and spoke with Dr. Oliveira of [facility] regarding the patient. He is in agreement to take the patient to the hospice care center today. I also called and spoke with Dr. Elizalde of infectious diseases, who also felt that it was reasonable to discontinue the COVID precautions. Objective: The patient's most recent lab work, culture data and imaging studies have all been personally reviewed. Coronavirus PCR was negative. Respiratory viral panel was negative. Strep and urine Legionella antigens were negative. C. difficile and enteric panel was negative. Blood and urine cultures have shown no growth to date. CT abdomen/pelvis revealed a 3 cm sub-capsular liver mass along with moderate biliary duct dilation and possible gastroenteritis. Lower extremity Doppler study revealed acute DVT of the right soleus vein. MRCP was completed and revealed 2 right-sided hepatic nodules likely sales utility representative of metastasis. There was a dilated extrahepatic biliary duct with cholelithiasis. General: Alert, Cooperative, - - Seems somewhat uncomfortable in bed HEENT: Atraumatic, PERRLA, Normocephalic Oral: No Gingival or Mucosal Lesions/ Ulcerations Neck: Supple, No Nodes, Trachea Midline Lungs: No rhonchi, No wheeze, No rales, Diminished Cardiovascular: Regular rate, Regular Rhythm, Normal S1, Normal S2 Abdomen: Bowel Sounds Present, Soft, Tender Extremities: No clubbing, No cyanosis, No edema Skin: No breakdown Musculoskeletal: No Muscle Wasting Lymphatic: No Cervical, Supraclavicular, or Inguinal Adenopathy Neurological: Cranial nerves II-XII grossly intact, Neuro grossly intact Psych/Mental Status: Normal Affect, Appropriate Vital Signs Temp Pulse Resp BP Pulse Ox 99.8 F H 99 20 H 109/43 L 100 07/25/19 04:00 07/25/19 04:00 07/25/19 04:00 07/25/19 04:00 07/25/19 04:00 Oxygen Flow Rate (L/min) 3 Oxygen Delivery Method Nasal Cannula Weight: 164 lb 7.437 oz Body Mass Index (BMI) 20.9 Intake and Output for Last 24 Hours 07/23/19 07/24/19 07/25/19 23:59 23:59 23:59 Intake Total 4279.20 / 4279.20 3135.50 / 3135.50 327.5 / 327.5 Output Total 2750 / 2750 3300 / 3300 650 / 650 Balance 1529.20 / 1529.20 -164.50 / -164.50 -322.5 / -322.5 Labs (Last 48 Hours) 07/22/19 07/22/19 07/23/19 17:55 18:14 01:25 WBC RBC Hgb Hct MCV MCH MCHC RDW Std Deviation RDW Coeff of Nevin Plt Count MPV Immature Gran % (Auto) Neut % (Auto) Lymph % (Auto) [place] % (Auto) Eos % (Auto) Baso % (Auto) Absolute Neuts (auto) Absolute Lymphs (auto) Total Counted Neutrophils % (Manual) Band Neutrophils % Lymphocytes % (Manual) Monocytes % (Manual) Metamyelocytes % Nucleated RBC % Differential Comment Diff Path Review Reviewed Reviewed Atypical Lymphocytes Platelet Estimate RBC Morphology PT INR Fibrinogen Specimen Type ART Sample Site R BRACHIAL O2 Delivery Device Nasal Can Liter Flow 4.0 Sodium Potassium Chloride Carbon Dioxide Anion Gap BUN Creatinine Estim Creat Clear Calc Est GFR (MDRD) Af Amer Est GFR (MDRD) Non-Af BUN/Creatinine Ratio Glucose Calcium Magnesium Total Bilirubin AST ALT Alkaline Phosphatase Total Protein Albumin Globulin Albumin/Globulin Ratio Vancomycin Trough COVID-19 (YADY) Hep Bs Antigen Hep Bs Antibody Hepatitis C Antibody SARS-CoV-2 IgG Ab SARS-CoV-2 IgM Ab Blood Type Antibody Screen Crossmatch 07/23/19 07/23/19 07/23/19 02:45 02:45 04:05 WBC RBC Hgb Hct MCV MCH MCHC RDW Std Deviation RDW Coeff of Nevin Plt Count MPV Immature Gran % (Auto) Neut % (Auto) Lymph % (Auto) [place] % (Auto) Eos % (Auto) Baso % (Auto) Absolute Neuts (auto) Absolute Lymphs (auto) Total Counted Neutrophils % (Manual) Band Neutrophils % Lymphocytes % (Manual) Monocytes % (Manual) Metamyelocytes % Nucleated RBC % Differential Comment Diff Path Review Atypical Lymphocytes Platelet Estimate RBC Morphology PT INR Fibrinogen Specimen Type Sample Site O2 Delivery Device Liter Flow Sodium Potassium Chloride Carbon Dioxide Anion Gap BUN Creatinine Estim Creat Clear Calc Est GFR (MDRD) Af Amer Est GFR (MDRD) Non-Af BUN/Creatinine Ratio Glucose Calcium Magnesium Total Bilirubin AST ALT Alkaline Phosphatase Total Protein Albumin Globulin Albumin/Globulin Ratio Vancomycin Trough COVID-19 (YADY) Hep Bs Antigen Non-Reactive Hep Bs Antibody Non-Reactive Hepatitis C Antibody Non-Reactive SARS-CoV-2 IgG Ab SARS-CoV-2 IgM Ab Blood Type O POSITIVE Antibody Screen NEGATIVE Crossmatch See Detail See Detail 07/23/19 07/23/19 07/23/19 09:45 15:30 19:15 WBC 0.4 L* RBC 2.18 L Hgb 6.5 L Hct 19.8 L MCV 90.8 MCH 29.8 MCHC 32.8 RDW Std Deviation 46.9 H RDW Coeff of Nevin 14.4 Plt Count 61 L MPV 9.3 Immature Gran % (Auto) 0.000 Neut % (Auto) 41.4 L Lymph % (Auto) 29.3 [place] % (Auto) 24.4 H Eos % (Auto) 4.9 Baso % (Auto) 0.0 Absolute Neuts (auto) 0.2 L Absolute Lymphs (auto) 0.12 L Total Counted Neutrophils % (Manual) Band Neutrophils % Lymphocytes % (Manual) Monocytes % (Manual) Metamyelocytes % Nucleated RBC % 0 Differential Comment Diff Path Review Reviewed Atypical Lymphocytes Platelet Estimate MOD DEC RBC Morphology NORM C+C PT INR Fibrinogen 690 H Specimen Type Sample Site O2 Delivery Device Liter Flow Sodium Potassium Chloride Carbon Dioxide Anion Gap BUN Creatinine Estim Creat Clear Calc Est GFR (MDRD) Af Amer Est GFR (MDRD) Non-Af BUN/Creatinine Ratio Glucose Calcium Magnesium Total Bilirubin AST ALT Alkaline Phosphatase Total Protein Albumin Globulin Albumin/Globulin Ratio Vancomycin Trough COVID-19 (YADY) Cancelled Hep Bs Antigen Hep Bs Antibody Hepatitis C Antibody SARS-CoV-2 IgG Ab SARS-CoV-2 IgM Ab Blood Type Antibody Screen Crossmatch 07/23/19 07/23/19 07/24/19 19:15 23:40 06:10 WBC RBC Hgb 8.5 L Hct 25.6 L MCV MCH MCHC RDW Std Deviation RDW Coeff of Nevin Plt Count MPV Immature Gran % (Auto) Neut % (Auto) Lymph % (Auto) [place] % (Auto) Eos % (Auto) Baso % (Auto) Absolute Neuts (auto) Absolute Lymphs (auto) Total Counted Neutrophils % (Manual) Band Neutrophils % Lymphocytes % (Manual) Monocytes % (Manual) Metamyelocytes % Nucleated RBC % Differential Comment Diff Path Review Atypical Lymphocytes Platelet Estimate RBC Morphology PT INR Fibrinogen Specimen Type Sample Site O2 Delivery Device Liter Flow Sodium Potassium Chloride Carbon Dioxide Anion Gap BUN Creatinine Estim Creat Clear Calc Est GFR (MDRD) Af Amer Est GFR (MDRD) Non-Af BUN/Creatinine Ratio Glucose Calcium Magnesium Total Bilirubin AST ALT Alkaline Phosphatase Total Protein Albumin Globulin Albumin/Globulin Ratio Vancomycin Trough 14.1 COVID-19 (YADY) Negative Hep Bs Antigen Hep Bs Antibody Hepatitis C Antibody SARS-CoV-2 IgG Ab SARS-CoV-2 IgM Ab Blood Type Antibody Screen Crossmatch 07/24/19 07/24/19 07/24/19 06:10 06:10 08:40 WBC 0.5 L* RBC 2.84 L Hgb 8.4 L Hct 25.2 L MCV 88.7 MCH 29.6 MCHC 33.3 RDW Std Deviation 50.3 H RDW Coeff of Nevin 15.7 H Plt Count 40 L* MPV 10.0 Immature Gran % (Auto) Neut % (Auto) Not Reportable Lymph % (Auto) [place] % (Auto) Eos % (Auto) Baso % (Auto) Absolute Neuts (auto) 0.3 L Absolute Lymphs (auto) 0.21 L Total Counted 100 Neutrophils % (Manual) 46 L Band Neutrophils % 4 Lymphocytes % (Manual) 42 H Monocytes % (Manual) 6 Metamyelocytes % 8 H Nucleated RBC % Differential Comment Diff Path Review Reviewed Atypical Lymphocytes 1+ Platelet Estimate MKD DEC RBC Morphology PT 23.2 H INR 2.1 Fibrinogen Specimen Type Sample Site O2 Delivery Device Liter Flow Sodium 147 H Potassium 2.9 L Chloride 116 H Carbon Dioxide 23.0 Anion Gap 8 BUN 41 H Creatinine 1.10 Estim Creat Clear Calc 66.52 Est GFR (MDRD) Af Amer 85 Est GFR (MDRD) Non-Af 71 BUN/Creatinine Ratio 37.3 H Glucose 74 Calcium 8.8 Magnesium 2.0 Total Bilirubin 1.80 H AST 39 H ALT 58 Alkaline Phosphatase 240 H Total Protein 5.1 L Albumin 1.3 L Globulin 3.8 Albumin/Globulin Ratio 0.3 L Vancomycin Trough COVID-19 (YADY) Hep Bs Antigen Hep Bs Antibody Hepatitis C Antibody SARS-CoV-2 IgG Ab SARS-CoV-2 IgM Ab Blood Type Antibody Screen Crossmatch 07/25/19 07/25/19 07/25/19 03:30 03:30 03:30 WBC 1.0 L* RBC 2.86 L Hgb 8.4 L Hct 25.4 L MCV 88.8 MCH 29.4 MCHC 33.1 RDW Std Deviation 50.3 H RDW Coeff of Nevin 15.4 H Plt Count 34 L* MPV 9.9 Immature Gran % (Auto) Neut % (Auto) Not Reportable Lymph % (Auto) [place] % (Auto) Eos % (Auto) Baso % (Auto) Absolute Neuts (auto) 0.7 L Absolute Lymphs (auto) 0.21 L Total Counted 100 Neutrophils % (Manual) 52 Band Neutrophils % 22 H Lymphocytes % (Manual) 22 Monocytes % (Manual) 2 Metamyelocytes % Nucleated RBC % Differential Comment Diff Path Review May foll Atypical Lymphocytes Platelet Estimate MKD DEC RBC Morphology PT INR Fibrinogen Specimen Type Sample Site O2 Delivery Device Liter Flow Sodium 146 H Potassium 3.0 L Chloride 115 H Carbon Dioxide 25.0 Anion Gap 6 BUN 23 H Creatinine 0.88 Estim Creat Clear Calc 83.60 Est GFR (MDRD) Af Amer 111 Est GFR (MDRD) Non-Af 91 BUN/Creatinine Ratio 26.2 H Glucose 87 Calcium 9.8 Magnesium Total Bilirubin 2.70 H AST 92 H ALT 89 H Alkaline Phosphatase 821 H Total Protein 5.6 L Albumin 1.4 L Globulin 4.2 Albumin/Globulin Ratio 0.3 L Vancomycin Trough COVID-19 (YADY) Hep Bs Antigen Hep Bs Antibody Hepatitis C Antibody SARS-CoV-2 IgG Ab Pending SARS-CoV-2 IgM Ab Pending Blood Type Antibody Screen Crossmatch 07/25/19 03:30 WBC RBC Hgb Hct MCV MCH MCHC RDW Std Deviation RDW Coeff of Nevin Plt Count MPV Immature Gran % (Auto) Neut % (Auto) Lymph % (Auto) [place] % (Auto) Eos % (Auto) Baso % (Auto) Absolute Neuts (auto) Absolute Lymphs (auto) Total Counted Neutrophils % (Manual) Band Neutrophils % Lymphocytes % (Manual) Monocytes % (Manual) Metamyelocytes % Nucleated RBC % Differential Comment Diff Path Review Atypical Lymphocytes Platelet Estimate RBC Morphology PT INR Fibrinogen Specimen Type Sample Site O2 Delivery Device Liter Flow Sodium Potassium Chloride Carbon Dioxide Anion Gap BUN Creatinine Estim Creat Clear Calc Est GFR (MDRD) Af Amer Est GFR (MDRD) Non-Af BUN/Creatinine Ratio Glucose Calcium Magnesium 1.9 Total Bilirubin AST ALT Alkaline Phosphatase Total Protein Albumin Globulin Albumin/Globulin Ratio Vancomycin Trough COVID-19 (YADY) Hep Bs Antigen Hep Bs Antibody Hepatitis C Antibody SARS-CoV-2 IgG Ab SARS-CoV-2 IgM Ab Blood Type Antibody Screen Crossmatch Microbiology 07/22/19 18:05 Blood Culture (Wb) - Right Forearm Blood Culture - Preliminary No growth in 48 hours. 07/22/19 18:11 Blood Culture (Wb) - Anticubital Left Blood Culture - Preliminary No growth in 48 hours. 07/22/19 22:36 Urine, Random Urine Culture - Preliminary Culture exhibits no growth. 07/23/19 03:25 Stool Enteric Bacteriology - Final 07/22/19 22:10 Mucosa - Nasopharyngeal Respiratory Panel (PCR) - Final Clinical Impression(s) from Imaging Studies Chest X-Ray 07/22/19 18:30 IMPRESSION: Findings suspicious for viral pneumonia possibly due to covid 19 infection. Clinical correlation recommended Electronically Signed: Dexter Norman MD at 18:50 EDT , Service support , Abdomen Ultrasound 07/23/19 00:06 IMPRESSION: 1. Gallbladder sludge with a positive sonographic Ramsey sign worrisome for acute or chronic cholecystitis. Clinical correlation is recommended. 2. Severe extrahepatic biliary ductal dilatation worrisome for biliary obstruction and correlation with MRCP or ERCP is recommended. 3. 2 x 4 cm hyperechoic mass within the right lobe of liver correlation with liver mass protocol CT is recommended. Electronically Signed: Kevin Light MD at 8:26 EDT Tel , Service support , Abdomen/Pelvis CT 07/23/19 07:30 IMPRESSION: 1. 3 cm mass of the subcapsular posterior segment the right lobe of the liver and correlation with liver mass protocol CT or MRI is recommended. 2. Moderate extrahepatic and intrahepatic biliary ductal dilatation and correlation with MRCP or ERCP is recommended. 3. Mildly dilated fluid-filled small bowel without a definite transition point possibly consistent with gastroenteritis. 4. Hernández catheter. Electronically Signed: Kevin Light MD at 10:47 EDT Tel , Service support , MRCP 07/24/19 10:00 IMPRESSION: 1. Two right-sided hepatic nodules may represent metastasis. 2. Possible infiltrative metastatic disease within the liver. 3. Multiple skeletal metastasis. 4. Dilated extrahepatic biliary ducts with cholelithiasis. There is no definite choledocholithiasis currently. 5. Small pleural effusions and bilateral basilar dependent atelectasis. Electronically Signed: Peg Rodriguez MD at 3:18 EDT , Service support , Medical Necessity - Tobacco Use Smoking Status: Former smoker - Patient quit cigarette tobacco usage in 2012 with prior to this 2 pack/day since he had been a teenager. Tobacco Use: Non-smoker Assessment/Plan All Active Problems (Last Reviewed 05/23/19 @ 15:54 by Monica Arriaga NP-Brenda) Severe sepsis (Acute) Respiratory failure with hypoxia (Acute) Pneumonia (Acute) Suspected COVID-19 virus infection (Acute) Pancytopenia (Acute) Obstructive jaundice (Acute) Supraclavicular lymphadenopathy (Acute) Esophageal lesion (Acute) Multiple lung nodules on CT (Acute) Right lower lobe pulmonary nodule (Acute) History of carpal tunnel surgery (Resolved) History of inguinal hernia repair (Resolved) History of appendectomy (Resolved) RECOMMENDATIONS: 1. Proceed with hospice care referral. CODE STATUS will be updated accordingly. 2. Orders for IV morphine from pain control have been placed. 3. Continue empiric antimicrobials for now. 4. Additional potassium repletion as ordered. 5. Wean supplemental oxygen to maintain saturations at or above 90%. 6. Continue to hold systemic anticoagulation. IMPRESSIONS: 1. Severe sepsis Clinical concern for possible underlying pulmonary infectious process versus intra-abdominal pathology. The patient has been adequately volume resuscitated. Given findings noted on CT abdomen and MRCP, consideration was given to possible percutaneous cholecystostomy tube placement. However, the patient would be at very high risk for the procedure, given his pancytopenia and coagulopathy. General surgery was subsequently consulted and discussed the risks and benefits of the procedure with the patient. Following a nallely discussion with the patient regarding goals of care, he he wishes to be transition to comfort care measures with referral to hospice care services. He does not wish to undergo any form of invasive procedures. Therefore, we will plan to continue empiric antimicrobials for now, pending hospice care services evaluation. 2. Acute hypoxemic respiratory failure Improving. Again, likely related to underlying pulmonary infectious process coupled with recent diagnosis of pulmonary embolism. However, the patient is not currently a candidate for systemic anticoagulation, given his lower GI bleeding. Wean supplemental oxygen as tolerated. 3. Recent diagnosis of pulmonary embolism The patient was diagnosed with pulmonary emboli on July 16. He was subsequently placed on Eliquis, which was held on admission to the ICU. The patient was initially placed on a continuous heparin infusion, which was later discontinued after he developed lower GI bleeding. Lower extremity Doppler study was positive for a right-sided DVT. 4. History of metastatic non-small cell carcinoma Prognosis is overall poor. The patient was just recently started on a combination of chemo and immunotherapy. Plan at this time to include referral to hospice care services and initiation of comfort care measures. 5. Pancytopenia/coagulopathy Likely secondary to recent chemotherapy initiation coupled with possible DIC. Continue Granix as ordered. Transfuse additional platelets today. 6. Acute kidney injury Improved. Likely secondary to ATN in the setting of #1. Continue to monitor urine output. No current indication for renal replacement therapy. 7. Abdominal pain/nausea/vomiting Concern for cholecystitis based on abdominal imaging studies with possible biliary obstruction. General surgery is following. 8. History of alcohol and tobacco dependency/obstructive sleep apnea/hypertension/hyperlipidemia Complicates care, management, recovery and prognosis. Continue home medications as indicated. CODE status: Discussed CODE status at length including difference between FULL code, DNR-CCA and DNR-CC status. Following discussions about the differences in these status, patient requested DNR CC CODE STATUS. Advanced Care Planning Face to Face Time: 13 minutes. This note was generated with [employer] dictation software. It may contain incorrect words, spelling, and punctuation that were not noted in checking the note before signing. Inpatient E&M: 39366 Subs Hosp L3 Procedures: 91977 Advncd Care Plan 30 Min
--- NOTE | 2019-07-25 08:10 | PN_ITS ---
Progress Note Laboratory Results - last 24 hr 07/23/19 07/24/19 07/24/19 15:30 06:10 08:40 WBC RBC Hgb Hct MCV MCH MCHC RDW Std Deviation RDW Coeff of Nevin Plt Count MPV Neut % (Auto) Absolute Neuts (auto) Absolute Lymphs (auto) Total Counted Neutrophils % (Manual) Band Neutrophils % Lymphocytes % (Manual) Monocytes % (Manual) Diff Path Review Reviewed Reviewed Platelet Estimate PT 23.2 H INR 2.1 Sodium Potassium Chloride Carbon Dioxide Anion Gap BUN Creatinine Estim Creat Clear Calc Est GFR (MDRD) Af Amer Est GFR (MDRD) Non-Af BUN/Creatinine Ratio Glucose Calcium Magnesium Total Bilirubin AST ALT Alkaline Phosphatase Total Protein Albumin Globulin Albumin/Globulin Ratio 07/25/19 07/25/19 07/25/19 03:30 03:30 03:30 WBC 1.0 L* RBC 2.86 L Hgb 8.4 L Hct 25.4 L MCV 88.8 MCH 29.4 MCHC 33.1 RDW Std Deviation 50.3 H RDW Coeff of Nevin 15.4 H Plt Count 34 L* MPV 9.9 Neut % (Auto) Not Reportable Absolute Neuts (auto) 0.7 L Absolute Lymphs (auto) 0.21 L Total Counted 100 Neutrophils % (Manual) 52 Band Neutrophils % 22 H Lymphocytes % (Manual) 22 Monocytes % (Manual) 2 Diff Path Review May foll Platelet Estimate MKD DEC PT INR Sodium 146 H Potassium 3.0 L Chloride 115 H Carbon Dioxide 25.0 Anion Gap 6 BUN 23 H Creatinine 0.88 Estim Creat Clear Calc 83.60 Est GFR (MDRD) Af Amer 111 Est GFR (MDRD) Non-Af 91 BUN/Creatinine Ratio 26.2 H Glucose 87 Calcium 9.8 Magnesium 1.9 Total Bilirubin 2.70 H AST 92 H ALT 89 H Alkaline Phosphatase 821 H Total Protein 5.6 L Albumin 1.4 L Globulin 4.2 Albumin/Globulin Ratio 0.3 L Patient continues to have moderate abdominal pain, GI bleeding has improved with blood and platelet transfusion. He has no nausea or vomiting, liver functions and ultrasound of the gallbladder suggest acute cholecystitis. He also has extrahepatic biliary ductal dilatation correspond with bili obstruction possibly due to metastatic disease in the liver. Coagulopathy may be related to liver disease and sepsis. Venous Doppler study of the lower extremities showed acute DVT of the right soleus vein. IMPRESSION: Mr. Dickinson is a 69 y/o M w/ PMHx: Chronic COPD, Former Tobacco use, HTN, EtOH Abuse, metastatic non-small cell lung CA on palliative chemotherapy. He developed acute sepsis with acute respiratory failure, sepsis and acute cholecystitis. Pancytopenia and coagulopathy secondary to above. His overall prognosis is poor. Patient and family understands his metastatic lung cancer is incurable and he is no longer a candidate for palliative chemotherapy treatment. ASSESSMENT/PLAN: 1. Acute Severe Sepsis secondary to Acute Hypoxic Respiratory Failure secondary sepsis Plan: -Continue broad-spectrum antibiotics -ID consult 2. Acute /chronic cholecystitis and liver metastasis Plan: -After my discussion with patient regarding the possible outcome for not treating his infection, he would like to proceed with percutaneous drain for acute cholecystitis. He is not a candidate for cholecystectomy. He understands the risks and benefit of the procedure and he will discuss with Dr. Harris later this morning. -Transfuse platelet and FFP prior to procedure. 3. Lung cancer, non-small cell: Incurable disease with poor performance status. -Overall, prognosis is poor and may not be a candidate for palliative chemotherapy at this time. Plan: -No further chemotherapy treatment planned -Hospice referral and discharge planning. 4. Pancytopenia, acute: Likely secondary to recent chemotherapy, and sepsis. Plan: -Continue Granix 300mcg daily -Transfuse blood and platelet; Keep Hgb > 8 & platelet > 50,000 5. History of recent pulmonary embolism; and acute DVT of the right lower extre mity -Consider starting back on a heparin 5,000 units sq every 8 hours while here in the hospital -Possibly resume Eliquis after discharge if platelet count recovers and coagulopathy resolves cc: Dr. Jose Roberto Cervantes, Dr. Harmeet Galdamez, Dr. Gm Harris, Dr. Johnathon Francois
[2019-07-25] MEDS: Morphine 2 MG/ML Syringe IV (09:00)
[2019-07-25] MEDS: proCHLORPERazine 10 MG/2 ML Vial 5 MG IV (09:05)
[2019-07-25 09:20] VITALS: PULSE 94
--- NOTE | 2019-07-25 09:39 | PN_ITS ---
Progress Note After discussing the procedure with the patient once more this morning the patient states that he misunderstood Dr. Hammer. He reports that he wants to do what ever possible to see his and children today and I informed him that if I placed a cholecystostomy tube I could not guarantee that the patient would not develop septic shock or severe bleeding. I did discuss this with him and he said if there is even a chance he might not be able to get out of the hospital is that he did not want the procedure and he wants to proceed with hospice. I discussed this once more with Dr. Galdamez and he is in agreement. If the patient changes mind once more please let me know. Gm Harris MD Pager: [facility] [address] [place] [address], [address] [place] [address] Office: [facility] Vital Signs/Narrative: Vital Signs Temp Pulse Resp BP Pulse Ox 07/25/19 09:20 94 07/25/19 08:00 98.7 F 92 18 116/60 96
[2019-07-25 09:44] VITALS: O2SAT 96
[2019-07-25] MEDS: Vancomycin IV 1,000 MG/200 ML BAG 200 MG IV (10:50)
--- NOTE | 2019-07-25 10:55 | CASEMGMT ---
Social Work SW attended ICU rounds. Dr. Galdamez reporting he has spoke with pt and pt is denying further treatment and would like hospice services. Phone call placed to pt room as pt is in Covid precautions, and SW spoke with pt. Pt confirms that he would like to start hospice services and states he wants to go to the inpatient unit and his main goal is to see his and children. Pt stating he did call and informed her of his decision and although was tearful she was agreeable with his decision. Phone call placed to [place] and [facility] who states pt has already called into the Hospice unit and informed them of pt desire. Catina made aware that pt has tested negative for Covid x2 but pt is still in covid precautions. Hospice states they would be able to accept if he qualifies and that only one family member can visit but others can come to patio door and see pt and talk on the phone. Phone call to pt and explained the inpatient visiting restrictions and pt expresses understanding and a continued desire to go to the inpatient unit. Referral made to Catina at [facility] and clinicals faxed. Catina states Dr. Galdamez will need to call Dr. Oliveira for admission consideration. Dr. Galdamez informed. Return call from Catina at [facility] and pt has been accepted and can be transferred to IPU. Phone call to [facility] and transportation arranged for 12-1230 pickup. Pt made aware and is agreeable. Phone call to Catina at [facility] and informed and she will contact pt as she has been speaking with her. Nursing made aware of discharge plan. 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
--- NOTE | 2019-07-25 12:11 | DCINST_ITS ---
- Discharge Diagnoses Current Active Problems: Current Active and Chronic Problems (Last Reviewed 05/23/19 @ 15:54 by WOODY Webb) Severe sepsis (Acute) Respiratory failure with hypoxia (Acute) Pneumonia (Acute) Suspected COVID-19 virus infection (Acute) Pancytopenia (Acute) Obstructive jaundice (Acute) You will use the following diet at home:: No restrictions Allergies/Adverse Reactions: Allergies No Known Allergies Allergy (Verified 07/21/19 12:13) Medications to take at Discharge multivitamin 1 tab PO DAILY 01/20/19 atorvastatin 10 mg tablet 10 mg PO QHS 01/21/19 Azithromycin [Zithromax Z-Cortez] 250 mg PO UD #1 box 07/17/19 Oxycodone [Oxyir] 5 - 10 mg PO Q6H PRN PRN 07/17/19 Apixaban [Eliquis] 5 - 10 mg PO BID 07/22/19 Dexamethasone [Decadron] 4 mg PO BIDCM 07/22/19 Ondansetron HCl [Zofran] 8 mg PO Q8H PRN PRN 07/22/19 Primary Care Physician: Johnathon Francois MD [Primary Care Provider] - Test Results: Test results from this visit will be discussed in further detail at your follow- up appointment, if applicable. Proposed Discharge Date: 07/25/19
--- NOTE | 2019-07-25 12:15 | DS.PCM_ITS ---
Discharge Date and Diagnosis - Problem List Patient Problems: Active and Suspected Problems (Last Reviewed 05/23/19 @ 15:54 by Monica Arriaga NP-Brenda) Severe sepsis (Acute) Respiratory failure with hypoxia (Acute) Pneumonia (Acute) Suspected COVID-19 virus infection (Acute) Pancytopenia (Acute) Obstructive jaundice (Acute) Date of Admission: 07/22/19 Date of Discharge: 07/25/19 - Primary Discharge Diagnosis Acute Problems: Active Problems (Last Reviewed 05/23/19 @ 15:54 by Monica Arriaga NP-Brenda) Severe sepsis (Acute) Respiratory failure with hypoxia (Acute) Pneumonia (Acute) Suspected COVID-19 virus infection (Acute) Pancytopenia (Acute) Obstructive jaundice (Acute) - Secondary Discharge Diagnosis Chronic Problems: Chronic Problems (Last Reviewed 05/23/19 @ 15:54 by Monica Arriaga NP-C) Non-small cell lung cancer (Chronic) Bronchiectasis (Chronic) RLL Former smoker (Chronic) Hyperlipidemia (Chronic) JOSE DAVID (obstructive sleep apnea) (Chronic) Macrocytosis (Chronic) Inguinal hernia (Chronic) Chronic obstructive lung disease (Chronic) Hypertensive disorder (Chronic) Alcoholism (Chronic) No intake since 03/2019. History of tobacco abuse (Chronic) Continuous chronic alcoholism (Chronic) Hospital Course and Treatment Summary of Care Provided: Patient is a 69-year-old gentleman with history of non-small cell lung CA curren tly on chemo brought to the emergency department with progressive shortness of breath 1. Severe sepsis ?imaging studies obtained on admission demonstrated features suspicious for viral pneumonia possibly COVID 19. Admitted to intensive care unit patient placed on supplemental oxygen as well as broad-spectrum antibiotic therapy with Zosyn and vancomycin. Consult was placed to infectious disease ?07/24/2019 patient still appears ill looking. Repeat COVID testing came back negative however ID advised for patient to be kept in isolation -07/25/2019 patient severe sepsis was thought to be secondary to acute cholecystitis consult was placed to general surgery however given patient frailty decision was made for patient to be transferred to hospice in the medical facility 2. Acute hypoxic respiratory failure ?Secondary to above patient is on supplemental oxygen 3. Suspected viral pneumonia rule out COVID 19 infection ?Management as discussed above 4. Acute kidney injury ?On IV fluids. Patient kidney function actually did worsen following his admission 5. Recent diagnosis of acute pulmonary embolism ?Patient was started on Eliquis apparently did develop epistaxis leading to caut erization 6. acute on chronic cholecystitis ?Ultrasound demonstrated Gallbladder sludge with a positive sonographic Ramsey sign worrisome for acute or chronic cholecystitis.. Patient was also noted to have Severe extrahepatic biliary ductal dilatation worrisome for biliary obstruction and correlation with MRCP or ERCP is recommended.. Plan is to consult general surgery once COVID 19 infection has been ruled out. ?07/24/2019 patient is scheduled to undergo MRCP for subsequent management consult placed to general surgery -07/25/2019 Plan was for patient to have undergone cholecystectomy tube he however elected not to proceed with the procedure and instead opted for hospice. Consult subsequently placed to case management 7. Non-small cell lung CA ?Patient has been managed by Dr. Cervantes as outpatient 8. Pancytopenia ?Secondary to patient malignancy. Patient currently being transfused 1 unit PRBC as well as platelet transfusion 9. COPD ?aerosol treatment as needed 10. Essential hypertension ~ blood pressure controlled, home medications continued with dose adjustment as needed 11. Dyslipidemia ~patient is on statin therapy, continued at home dose 12. Physical deconditioning -Secondary to multiple comorbidities above. Consult placed to case management. Plan is for patient to be transferred to hospice care after evaluation Patient Problems: Active and Suspected Problems (Last Reviewed 05/23/19 @ 15:54 by Monica Arriaga NP-C) Severe sepsis (Acute) Respiratory failure with hypoxia (Acute) Pneumonia (Acute) Suspected COVID-19 virus infection (Acute) Pancytopenia (Acute) Obstructive jaundice (Acute) - Physical Exam Vitals/I&O's: Vital Signs Temp Pulse Resp BP Pulse Ox 98.7 F 94 18 116/60 96 07/25/19 08:00 07/25/19 09:20 07/25/19 08:00 07/25/19 08:00 07/25/19 09:44 Oxygen Flow Rate (L/min) 3 Oxygen Delivery Method Nasal Cannula Weight: 74.6 kg Body Mass Index (BMI) 20.9 Intake and Output for Last 24 Hours 07/23/19 07/24/19 07/25/19 23:59 23:59 23:59 Intake Total 4279.20 / 4279.20 3135.50 / 3135.50 327.5 / 327.5 Output Total 2750 / 2750 3300 / 3300 650 / 650 Balance 1529.20 / 1529.20 -164.50 / -164.50 -322.5 / -322.5 General: - - Appears ill looking Lungs: Diminished Cardiovascular: Regular rate, Regular Rhythm Psych/Mental Status: Flat Affect Microbiology Past 72 Hours 07/22/19 22:36 Urine, Random Urine Culture - Final Culture exhibits no growth. 07/22/19 18:05 Blood Culture (Wb) - Right Forearm Blood Culture - Preliminary No growth in 48 hours. 07/22/19 18:11 Blood Culture (Wb) - Anticubital Left Blood Culture - Preliminary No growth in 48 hours. 07/23/19 03:25 Stool Enteric Bacteriology - Final 07/22/19 22:10 Mucosa - Nasopharyngeal Respiratory Panel (PCR) - Final 07/23/19 01:20 Stool C. difficile DNA Amplification - Final 07/22/19 22:30 Urine Catheter - Catheter Legionella Antigen - Final 07/22/19 22:30 Urine Catheter - Catheter Streptococcus pneumoniae Antigen (M - Final 07/22/19 18:00 Mucosa - Nasopharyngeal Coronavirus COVID-19 PCR - Final Laboratory Results 07/25/19 03:30: WBC 1.0 L*, RBC 2.86 L, Hgb 8.4 L, Hct 25.4 L, MCV 88.8, MCH 29.4, MCHC 33.1, RDW Std Deviation 50.3 H, RDW Coeff of Nevin 15.4 H, Plt Count 34 L*, MPV 9.9, Neut % (Auto) Not Reportable, Absolute Neuts (auto) 0.7 L, Absolute Lymphs (auto) 0.21 L, Total Counted 100, Neutrophils % (Manual) 52, Band Neutrophils % 22 H, Lymphocytes % (Manual) 22, Monocytes % (Manual) 2, Diff Path Review July foll, Platelet Estimate MKD 07/25/19 03:30: Sodium 146 H, Potassium 3.0 L, Chloride 115 H, Carbon Dioxide 25.0, Anion Gap 6, BUN 23 H, Creatinine 0.88, Estim Creat Clear Calc 83.60, Est GFR (MDRD) Af Amer 111, Est GFR (MDRD) Non-Af 91, BUN/Creatinine Ratio 26.2 H, Glucose 87, Calcium 9.8, Total Bilirubin 2.70 H, AST 92 H, ALT 89 H, Alkaline Phosphatase 821 H, Total Protein 5.6 L, Albumin 1.4 L, Globulin 4.2, Albumin/Globulin Ratio 0.3 L 07/25/19 03:30: SARS-CoV-2 IgG Ab Pending, SARS-CoV-2 IgM Ab Pending 07/25/19 03:30: Magnesium 1.9 Current Medications Acetaminophen (Tylenol) 650 mg PO Q6H PRN PRN PRN Reason: Pain Score 1-10/Temp > 100.7 F Last Admin: 07/24/19 16:39 Dose: 650 mg Documented by: Al Hydroxide/Mg Hydroxide (Mylanta Ii) 30 ml PO Q6H PRN PRN PRN Reason: Gastric Burning Albuterol Sulfate (Ventolin Aerosols) 2.5 mg INHALATION Q2H PRN PRN PRN Reason: Dyspnea, wheezing Dextrose (D50w Syringe) 0 gm IV X1 PRN; Protocol PRN Reason: Hypoglycemia Glucagon () 1 mg IM .X1 PRN PRN Reason: Hypoglycemia Guaifenesin (Robitussin) 10 ml PO Q4H PRN PRN PRN Reason: COUGH Hydralazine HCl (Apresoline Iv) 10 mg IV Q4H PRN PRN PRN Reason: SBP > 160 Vancomycin IV Pharmacy to Dose (1 ea/ Sodium Chloride) 500 mls @ 250 mls/hr IV PRN PRN; Protocol PRN Reason: Rx to Dose Piperacillin Sod/Tazobactam (Sod 3.375 gm/ Sodium Chloride) 50 mls @ 12.5 mls/ hr IV Q8@0200,1000,1800 [facility] Last Admin: 07/25/19 10:51 Dose: 12.5 mls/hr Documented by: Sodium Chloride () 250 mls @ 15 mls/hr IV .[id number] PRN PRN Reason: Saline Flush Last Infusion: 07/25/19 02:00 Dose: 0 mls/hr Documented by: Sodium Chloride () 250 mls @ 15 mls/hr IV .[id number] PRN PRN Reason: Additional IVPB Infusion Pantoprazole Sodium 40 mg/ (Sodium Chloride) 110 mls @ 330 mls/hr IV Q12 [facility] Last Admin: 07/25/19 11:25 Dose: Not Given Documented by: Vancomycin HCl (Vancomycin) 1,000 mg in 200 mls @ 200 mls/hr IV Q12H [facility] Last Admin: 07/25/19 10:50 Dose: 200 mls/hr Documented by: Magnesium Hydroxide (Milk Of Magnesia) 30 ml PO DAILY PRN PRN PRN Reason: Constipation Morphine Sulfate () 2 - 4 mg IV Q4H PRN PRN PRN Reason: Pain Score 6-10/10 Last Admin: 07/25/19 09:00 Dose: 2 mg Documented by: Morphine Sulfate () 2 - 4 mg IV Q4H PRN PRN PRN Reason: Pain Score 6-10/10 Nitroglycerin (Nitrostat) 0.4 mg SUBLINGUAL Q5M PRN PRN Reason: CARDIAC/CHEST PAIN Ondansetron HCl (Zofran) 4 mg IV Q8H PRN PRN PRN Reason: NAUSEA/VOMITING Last Admin: 07/25/19 03:12 Dose: 4 mg Documented by: Potassium [facility]Dur) [facility]: 07/25/19 17:01 Last Admin: 07/25/19 05:48 Dose: 40 meq Documented by: Prochlorperazine Edisylate (Compazine Iv) 5 mg IV Q4H PRN PRN PRN Reason: Breakthrough Nausea/Vomiting Last Admin: 07/25/19 09:05 Dose: 5 mg Documented by: Psyllium Hydrophilic Mucilloid (Metamucil) 1 packet PO DAILY PRN PRN PRN Reason: Constipation Senna/Docusate Sodium (Senokot-S, Elisabeth-Colace) 2 tablet PO BID PRN PRN PRN Reason: Constipation Sodium Chloride () 10 - 40 ml IV UD PRN PRN Reason: SALINE FLUSH Last Admin: 07/25/19 03:12 Dose: 20 ml Documented by: Tbo-Filgrastim (Granix) 300 mcg SC DAILY [facility] Last Admin: 07/25/19 10:41 Dose: Not Given Documented by: Throat Lozenges (Cepacol Sore Throat Lozenge) 1 lozenge MUCOUS MEM Q2H PRN PRN PRN Reason: SORE THROAT Discharge Diet: No Restrictions Home Medications: Medications to take at Discharge multivitamin 1 tab PO DAILY 01/20/19 atorvastatin 10 mg tablet 10 mg PO QHS 01/21/19 Azithromycin [Zithromax Z-Cortez] 250 mg PO UD #1 box 07/17/19 Oxycodone [Oxyir] 5 - 10 mg PO Q6H PRN PRN 07/17/19 Apixaban [Eliquis] 5 - 10 mg PO BID 07/22/19 Dexamethasone [Decadron] 4 mg PO BIDCM 07/22/19 Ondansetron HCl [Zofran] 8 mg PO Q8H PRN PRN 07/22/19 Primary Care Physician: Johnathon Francois MD [Primary Care Provider] - Disposition: Hospice Medical Facility Minutes spent on discharge:: 45 Patient Condition:: Stable Medical Necessity - Tobacco Use Smoking Status: Former smoker - Patient quit cigarette tobacco usage in 2012 with prior to this 2 pack/day since he had been a teenager. Tobacco Use: Non-smoker Meaningful Use Info Meaningful Use Diagnoses (Choose all that apply): None applicable Inpatient E&M: 25928 [facility]
[2019-07-25 12:20] LABS: Pathologist Review Reviewed
[2019-07-28 01:51] LABS: SAR-COV-2 IGG ANTIBODY Negative (Negative); SAR-COV-2 IGM ANTIBODY Negative (Negative)
== END 2019-07-25 12:30 | disposition hospice, inpatient (51) | DRG 871 ==
LOC: ED 19:40 → ICU 19:46
PROVIDERS: Internal Medicine Critical Care Medicine; Internal Medicine Infectious Disease; Admitting Provider Family Medicine; Emergency Provider Emergency Medicine; PCP Family Medicine; Visit Provider Internal Medicine
DX: A41.9 Sepsis, unspecified organism (principal); R65.21 Severe sepsis with septic shock; J96.01 Acute respiratory failure with hypoxia; J18.9 Pneumonia, unspecified organism; I26.99 Other pulmonary embolism without acute cor pulmonale; N17.0 Acute kidney failure with tubular necrosis; J44.0 Chronic obstructive pulmonary disease with (acute) lower respiratory infection; D61.818 Other pancytopenia; C34.90 Malignant neoplasm of unspecified part of unspecified bronchus or lung; C78.7 Secondary malignant neoplasm of liver and intrahepatic bile duct; D68.9 Coagulation defect, unspecified; K80.13 Calculus of gallbladder with acute and chronic cholecystitis with obstruction; E78.5 Hyperlipidemia, unspecified; G47.33 Obstructive sleep apnea (adult) (pediatric); I10 Essential (primary) hypertension; T45.1X5A Adverse effect of antineoplastic and immunosuppressive drugs, initial encounter; R04.0 Epistaxis; Z66 Do not resuscitate; F10.21 Alcohol dependence, in remission; Z87.891 Personal history of nicotine dependence; I82.461 Acute embolism and thrombosis of right calf muscular vein
CPT/HCPCS: 36415; 36600; 71045; 74177; 74181; 76705; 80053; 80202; 81001; 82728; 82803; 83605; 83615; 83735; 84100; 84145; 84484; 85014; 85018; 85025; 85379; 85384; 85610; 85730; 86140; 86706; 86769; 86803; 86850; 86900; 86901; 86920; 86921; 86922; 86965; 87040; 87086; 87340; 87449; 87493; 87506; 87633; 87635; 87641; 93005; 93970; 94660; 97162; 97166; 99282; 99285; G2023; J7030; J7040; J7050; P9016; P9035; Q9967; A4216; J1447; J2405; U0004